=== PATIENT | female | born 1990 | race Caucasian/White ===

== ENCOUNTER 2020-03-26 17:33 | Emergency (ER) | payer OTHER, SELFPAY ==
[2020-03-26 17:40] VITALS: BP 138/72; PULSE 110; RESP 20; TEMP 36.5; O2SAT 99; BMI 30.9
== END 2020-03-26 21:00 | disposition left against medical advice (07) ==
PROVIDERS: Emergency Provider Student in an Organized Health Care Education/Training Program; PCP Hospitalist
DX: R13.10 Dysphagia, unspecified (principal)
CPT/HCPCS: 99281; 99282

== ENCOUNTER 2021-01-01 15:47 | Emergency (ER) | payer OTHER, SELFPAY | END 2021-01-01 21:19 | disposition left against medical advice (07) | PROVIDERS: Emergency Provider Emergency Medicine; PCP Hospitalist | DX: R10.30 Lower abdominal pain, unspecified (principal) ==

== ENCOUNTER 2022-11-14 11:06 | Emergency (ER) | payer OTHER, SELFPAY ==
[2022-11-14 11:16] VITALS: BP 135/73; PULSE 95; RESP 20; TEMP 37.2; O2SAT 98; BMI 32.3
--- NOTE | 2022-11-14 11:38 | ED_ITS ---
HPI - General Adult General Chief complaint: Ear Problems Stated complaint: l ear infection Time Seen by Provider: 11/14/22 11:16 Source: patient Mode of arrival: ambulatory Limitations: no limitations History of Present Illness HPI narrative: Patient is a 32-year-old female presenting to the emergency department from urgent care with complaint of left ear pain for the past week. Patient was seen at Urgent Care around 5 days ago and diagnosed with otitis externa, started on polymyxin drops and reports her symptoms have not improved and her pain is increased. She denies fevers. She denies difficulty opening and closing her jaw. complaint: left ear pain Onset (ago): day(s) Location: head Severity: severe Quality: aching Pain Consistency: constant Relieving factors: none Exacerbating factors: none Associated symptoms: denies other symptoms Treatments prior to arrival: NSAID and other (polymycin drops) Related Data Previous Rx's Medication Instructions Recorded ciprofloxacin 0.2 %-hydrocortisone 5 drp otic (ears) QID 7 days #10 mL 11/14/22 1 % ear drops,suspension Allergies Allergy/AdvReac Type Severity Reaction Status Date / Time No Known Allergies Allergy Unverified 12/14/19 16:24 Review of Systems 2 Review of Systems: As per HPI. Yes all other systems are reviewed and are negative Constitutional: Constitutional: Reports as per HPI [facility] Past Medical History Medical History (Updated 11/14/22 @ 12:08 by Pilar Ibanez NP) No known health problems Social History Social History Advance Directives: No Advance Directives Information Provided: No Physical Exam ED Vital Signs: Vital Signs - 24 hr 11/14/22 11:16 Temperature 98.9 F Pulse Rate 95 Respiratory Rate 20 Blood Pressure 135/73 Pulse Oximetry 98 Oxygen Delivery Method Room Air BMI result Body Mass Index 32.3 Vital signs have been reviewed and appear to be correct. Blood pressure normal. Heart rate normal. Respiratory rate normal. Temperature normal. Oxygen saturation normal. Const General: cooperative, healthy appearing and no acute distress Orientation/consciousness: oriented to person, oriented to place, oriented to time and patient oriented x3 Limitations: no limitations HENMT Head: Yes normocephalic and Yes atraumatic Ears: hearing grossly normal bilaterally, external ears normal, mastoids normal, no periauricular adenopathy, Abnormal EAC present cerumen impaction on the right, edema on the left, EAC tenderness on the left and otic discharge purulent on the left and unable to visualize TM bilaterally (R r/t cerumen, L r/t EAC edema and discharge) General nose exam: Normal external nose present Face and sinus: Yes face symmetric Mouth: oropharynx normal and moist mucous membranes Throat: Yes uvula midline Eyes Pupils: Equal, round and reactive pupils present Neck Neck: Yes normal visual inspection and Yes supple Resp Effort & Inspection: normal respiratory effort and able to speak in complete sentences Auscultation: clear to auscultation bilaterally Cardio Rate: regular rate Rhythm: regular rhythm Heart sounds: S1 normal heart sound present and S2 normal heart sound present GI Palpation (GI): Soft to palpation and nontender Auscultation: normoactive bowel sounds General: Yes no CVA tenderness Back/Spine/Pelvis Back: no CVA tenderness Skin General skin exam: elasticity normal and turgor normal Neuro General: oriented to person, oriented to place, oriented to time, patient oriented x3, moves all extremities, no focal motor deficits and CN's II-XI intact bilaterally Cranial nerves: Yes Equal, round and reactive pupils present Cognition (Neuro): normal cognition Extrem General: Yes full ROM, Yes no pedal edema and Yes no calf tenderness Psych Mental Status: mental status grossly normal Affect: normal affect Thought process: Normal thought process present Medical Decision Making Medical Decision Making MDM Narrative: Patient is a 32-year-old female presenting to the emergency department from urgent care with complaint of left ear pain for the past week. On exam patient is awake, A+Ox3, VS WNL, afebrile, normal neurological exam without focal deficits, right EAC impacted with cerumen, unable to visualize TM, left EAC edematous with purulent discharge, unable to visualize TM due to edema, no mastoid tenderness, no trismus. Given reported symptoms and physical exam findings, initial differential includes otitis externa, otitis media. Unlikely mastoiditis given lack of mastoid tenderness. Wick placed in left EAC. Spoke with pharmacist, no cipro or ofloxacin drops available in the hospital. Prescribed cipro-hydrocortisone drops for 7 days. Discussed with patient that wick should fall out on it's own as symptoms improve. Return precautions discussed bedside. Instructed patient to follow-up with PCP. Patient verbalized understanding of and agreement with plan. Differential Diagnosis Differential Diagnoses: The differential diagnosis associated with the presentation includes As per MDM. External Record Review External record reviewed: Inpatient record, Office record and Outpatient record Tests considered The following testing was considered but not selected: CT considered to rule out mastoiditis, however, patient did not have any mastoid tenderness so imaging deferred Prescription Management I considered prescription management with: Antibiotic Discharge Plan Discharge Clinical Impression: Otitis externa Patient Disposition: Home, Self-Care Instructions: Otitis Externa (DC) Additional Instructions: You were evaluated in the emergency department today for ear pain. Your evaluation suggests that your pain is due to an external ear infection called otitis externa. We placed a wick in your left ear canal today to help the drops treat your infection, this should fall out on it's own as your symptoms improve. Please STOP USING THE PREVIOUSLY PRESCRIBED DROPS AND BEGIN USING THE NEWLY PRESCRIBED EARDOPS as directed for the full course of the medication. Please follow up with your primary care provider within two days. Return to the emergency department if you experience hearing loss, increased discharge from your ear, headaches, fevers, wick does not fall out on it's own, recurrent vo miting, or any other concerning symptoms. Prescriptions: New ciprofloxacin-hydrocortisone 0.2-1 % drops,suspension 5 drp otic (ears) QID 7 Days Qty: 10 0RF
--- OUTSIDE RECORDS SUMMARY | 2022-11-14 11:41 | XMS_ITS | Continuity of Care Document ---
Author Name Unknown Organization [facility] Address [address] [place] [address]- Care Team Providers Care Health Information Internship Name Role Phone Ismael RAMIREZ, [facility] Primary Care Physician [place] [facility] [place](s): 09/26/19 - 10/26/19 [facility] [address] [place] [address]- [facility] Allergies, Adverse Reactions, Alerts Substance Reaction Severity Status NKA Active Immunizations Given and Recorded Vaccine Date Status Refusal Reason influenza virus vaccine, inactivated 12/09/18 Give n Medications Ashlyna oral tablet TK 1 T PO QD Start Date: 10/19/19 Status: Ordered Chantix Starter Pack 0.5 mg-1 mg oral tablet 1 tablet, By Mouth, 2 times a day, as directed on package labeling, # 1 kit, 0 Refills, Maintenance, 10/23/19 13:30:00 EDT, [facility] #[id number], 1 tablet By Mouth 2 times a day,Instr:as directed on package labeling, 160, cm, 10/23/19 12:18:00... Start Date: 10/23/19 Status: Ordered gabapentin 300 mg oral capsule 300 mg, 1, capsule, By Mouth, 4 times a day, 1 AM, 1 noon, 2 hs, # 90 capsule, Refills 0, Maintenance, 10/23/19 13:25:00 EDT Start Date: 10/23/19 Status: Ordered QUEtiapine 50 mg oral tablet 1 tablet = 50 mg, By Mouth, Daily, # 30 tablet, 1 Refills, Maintenance, 09/28/19 9:29:00 EDT, Tablet, [facility] #[id number], 160, cm, 03/13/19 9:14:00 EST, Height, 68, kg, 02/16/19 18:19:00 EST, Dry Weight Start Date: 09/28/19 Stop Date: 11/27/19 Status: Ordered Problem List Condition Effective Dates Status Health Status Inform ant Anxiety(Confirmed) Active IC (interstitial cystitis)(Confirmed) Active Chronic pelvic pain in female(Confirmed) Active Endometriosis(Confirmed) Active Insomnia(Confirmed) Active Tobacco use(Confirmed) Active Social History Social History Type Response Smoking Status 10 or more cigarette s (1/2 pack or more)/day in last 30 days; Other: From 13 years; entered on: 12/09/18 Sex
--- OUTSIDE RECORDS SUMMARY | 2022-11-14 11:41 | XMS_ITS | Continuity of Care Document ---
Author Name Unknown Organization [facility] Address [address] [place] [address]- Care Team Providers Care Java [id number] Lead Name Role Phone Ismael RAMIREZ, [facility] Primary Care Physician [place] [facility] [place] - 04/29/[address] [address] [facility] Attending Physician: Giovany Guevara MD Allergies, Adverse Reactions, Alerts Substance Reaction Severity Status NKA Active Immunizations Given and Recorded Vaccine Date Status Refusal Reason influenza virus vaccine, inactivated 12/09/18 Give n Medications desipramine 100 mg oral tablet 1 tablet = 100 mg, By Mouth, Daily, # 30 tablet, 0 Refills, Maintenance, 02/16/19 18:27:37 EST, Tablet Start Date: 02/16/19 Status: Ordered Lexapro 10 mg oral tablet 1 tablet = 10 mg, By Mouth, Daily, # 30 tablet, 2 Refills, Maintenance, 03/13/19 9:57:03 EST, Tablet, [facility] [address], 160, cm, 03/13/19 9:14:58 EST, Height, 68, kg, 02/16/19 18:19:44 EST, Dry Weight Start Date: 03/13/19 Status: Ordered QUEtiapine 50 mg oral tablet 1 tablet = 50 mg, By Mouth, Daily, # 30 tablet, 2 Refills, Maintenance, 04/28/19 9:37:00 EST, Tablet, [facility] [address], 160, cm, 03/13/19 9:14:00 EST, Height, 68, kg, 02/16/19 18:19:00 EST, Dry Weight Start Date: 04/28/19 Stop Date: 07/27/19 Status: Ordered Problem List Condition Effective Dates [...]
--- OUTSIDE RECORDS SUMMARY | 2022-11-14 11:41 | XMS_ITS | Continuity of Care Document ---
Author Name Unknown Organization [facility] Address [address] [place] [address]- Care Team Providers Care Gore Inserter Name Role Phone Juan NAVA, Karla Villar Primary Care Physician En[place] [facility] [place] Date(s): 08/11/21 - 11/22/21 [facility] [address] [place] [address]- Attending Physician: Not on Staff, Attending MD Referring Physician: Karla Martinez NP Allergies, Adverse Reactions, Alerts No Known Allergies Immunizations Given and Recorded Vaccine Date Status Refusal Reason SARS-CoV-2 (COVID-19) mRNA-1273 vaccine 03/13/21 R ecorded SARS-CoV-2 (COVID-19) mRNA-1273 vaccine 07/11/20 R ecorded SARS-CoV-2 (COVID-19) mRNA-1273 vaccine 06/13/20 R ecorded influenza virus vaccine, inactivated 01/12/20 Give n influenza virus vaccine, inactivated 12/09/18 Give n influenza virus vaccine, inactivated 01/04/14 Jesus rded influenza virus vaccine, inactivated 11/30/12 Jesus rded tetanus/diphtheria/pertussis, acel(Tdap) 06/20/15 Recorded Medications Ashlyna oral tablet TK 1 T PO QD Start Date: 10/19/19 Status: Ordered chantix 1mg tablet 1 tablet = 1 mg, By Mouth, 2 times a day, beginning WEEK 5 until end of treatment, # 60 tablet, 1 Refills, Maintenance, 09/10/20 12:27:00 EDT, [facility] #[id number], Partial fill upon patient request if the prescription is for a schedule II opio... Start Date: 09/10/20 Status: Ordered Chantix Starter Pack 0.5 mg-1 mg oral tablet See Instructions, as directed on package labelling, # 1 pack/packet, 0 Refills, Maintenance, 09/10/20 12:27:00 EDT, [facility] #[id number], Partial fill upon patient request if the prescription is for a schedule II opioid drug., as directed on pa... Start Date: 09/10/20 Status: Ordered ProAir HFA 90 mcg/inh inhalation aerosol 2 puffs, Inhalation, Every 4 hours, PRN NEEDED FOR WHEEZING, # 18 Gm, 5 Refills, [facility] #[id number], 16, INHALE 2 PUFFS BY MOUTH EVERY 4 HOURS NEEDED FOR WHEEZING, 160, cm, 09/10/20 12:00:00 EDT, Height Start Date: 04/06/21 Status: Ordered QUEtiapine 50 mg oral tablet 1 tablet, By Mouth, Daily at bedtime, # 90 tablet, 3 Refills, [facility] #[id number], 160, cm,09/10/20 12:00:00 EDT, Height Start Date: 03/26/21 Status: Ordered QUEtiapine 50 mg oral tablet See Instructions, TAKE 1 TABLET BY MOUTH DAILY, # 30 tablet, 0 Refills, [facility] #[id number], 160, cm, 09/10/20 12:00:00 EDT, Height Start Date: 10/24/21 Status: Ordered Problem List Condition Effective Dates Status Health Status Inform ant Anxiety(Confirmed) Active Persistent asthma without complication(Confirmed) Active IC (interstitial cystitis)(Confirmed) Active Chronic pelvic pain in female(Confirmed) Active Daytime somnolence(Confirmed) Active Endometriosis(Confirmed) Active Chronic fatigue(Confirmed) Active Insomnia(Confirmed) Active Mood disorder(Confirmed) Active Generalized muscle ache(Confirmed) Active Acne rosacea(Confirmed) Active Stridor(Confirmed) Active Tobacco use(Confirmed) Active Social History Social History Type Response Smoking Status 10 or more cigarette s (1/2 pack or more)/day in last 30 days; Other: From 13 years; entered on: 12/09/18 Sex Care Team Personnel Name: Karla Martinez NP Address: [address] [place] [id number]
--- OUTSIDE RECORDS SUMMARY | 2022-11-14 11:41 | XMS_ITS | Continuity of Care Document ---
Author Name Unknown Organization [facility] Address [address] [place] [address]- Care Team Providers Care Domestic Freight Forwarder Name Role Phone Juan NAVA, Karla Villar Primary Care Physician En[facility] [place] Date(s): 04/29/21 - 07/02/21 [facility] [address] [place] [address]- Attending Physician: Karla Martinez NP Referring Physician: Miek Vigil MD Allergies, Adverse Reactions, Alerts No Known Allergies [...] tablet, 1 Refills, Maintenance, 09/10/20 12:27:00 EDT, [facility] #[id number], Partial fill upon patient request if the prescription is for a schedule II opio... Start Date: 09/10/20 Status: Ordered Chantix Starter Pack 0.5 mg-1 mg oral tablet See Instructions, as directed on package labelling, # 1 pack/packet, 0 Refills, Maintenance, 09/10/20 12:27:00 EDT, [facility] #[id number], Partial fill upon patient request if the prescription is for a schedule II opioid drug., as directed on pa... Start Date: 09/10/20 Status: Ordered ProAir HFA 90 mcg/inh inhalation aerosol 2 puffs, Inhalation, Every 4 hours, PRN NEEDED FOR WHEEZING, # 18 Gm, 5 Refills, [facility] #[id number], 16, INHALE 2 PUFFS BY MOUTH EVERY 4 HOURS NEEDED FOR WHEEZING, 160, cm, 09/10/20 12:00:00 EDT, Height Start Date: 04/06/21 Status: Ordered QUEtiapine 50 mg oral tablet 1 tablet, By Mouth, Daily at bedtime, # 90 tablet, 3 Refills, [facility] #[id number], 160, cm,09/10/20 12:00:00 EDT, Height Start Date: 03/26/21 Status: Ordered Problem List Condition Effective Dates [...]
--- OUTSIDE RECORDS SUMMARY | 2022-11-14 11:41 | XMS_ITS | Continuity of Care Document ---
Author Name Unknown Organization [facility] Address [address] [place] [address]- Care Team Providers Care Data Reduction Technician Name Role Phone Leighton Nguyen MD Primary Care Physician Encounter [facility] [place] Date(s): 02/19/20 - 03/20/[address] [address] Attending Physician: Nelda Rodriguez Admitting Physician: Admtr, [id number] Referring Physician: Admtr, Ar8 Allergies, Adverse Reactions, Alerts Substance Reaction Severity Status NKA Active Immunizations Given and Recorded Vaccine Date Status Refusal Reason influenza virus vaccine, inactivated 01/12/20 Give n influenza virus vaccine, inactivated 12/09/18 Give n Medications albuterol CFC free 90 mcg/inh inhalation aerosol 2, puffs, Inhalation, Every 4 hours, PRN, # 18 Gm, Refills 3, Tot. Refills 3, Maintenance, 02/15/2010:20:00 EST, Aerosol, Route to Pharmacy Electronically, [id number]_[id number], [facility] #[id number], 160, cm, 02/16/20 9:16:00 EST, Height, 68, kg,... Start Date: 02/16/20 Status: Ordered Ashlyna oral tablet TK 1 T PO QD Start Date: 10/19/19 Status: Ordered fluticasone 250 mcg/inh inhalation powder 1 puffs, Inhalation, 2 times a day, # 60 each, 11 Refills, Maintenance, 02/16/20 10:19:00 EST, Powder, [facility] #[id number], Partial fill upon patient request, 160, cm, 02/16/20 9:16:00 EST, Height, 68, kg, 02/16/19 18:19:00 EST, Dry Weight Start Date: 02/16/20 Status: Ordered gabapentin 300 mg oral capsule 300 mg, 1, capsule, By Mouth, 4 times a day, 1 AM, 1 noon, 2 hs, # 90 capsule, Refills 0, Maintenance, 10/23/19 13:25:00 EDT Start Date: 10/23/19 Status: Ordered QUEtiapine 50 mg oral tablet 1 tablet = 50 mg, By Mouth, Daily, # 30 tablet, 2 Refills, Maintenance, 02/02/20 8:33:00 EST, Tablet, [facility] #[id number], 160, cm, 01/12/20 12:55:00 EDT, Height, 68, kg, 02/16/19 18:19:00 EST, Dry Weight Start Date: 02/02/20 Stop Date: 05/02/20 Status: Ordered Problem List Condition Effective Dates [...]
--- OUTSIDE RECORDS SUMMARY | 2022-11-14 11:41 | XMS_ITS | Continuity of Care Document ---
Author Name Unknown Organization [facility] Address [address] [place] [address]- Care Team Providers Care Paint Process Engineer Name Role Phone Juan NAVA, Karla Villar Primary Care Physician [place] [facility] [place] 12/08/21 - 12/15/21 [facility] Adult [address] [place] [address]- Encounter Diagnosis Anxiety(Discharge Diagnosis) - 12/08/21 Insomnia(Discharge Diagnosis) - 12/08/21 Persistent asthma without complication(Discharge Diagnosis) - 12/08/21 Chronic pelvic pain in female(Discharge Diagnosis) - 12/08/21 Tobacco use(Discharge Diagnosis) - 12/08/21 Mood disorder(Discharge Diagnosis) - 12/08/21 Attending Physician: Not on Staff, Attending MD [...] PO QD Start Date: 10/19/19 Status: Ordered baclofen 10 mg oral tablet 10 mg, 1, tablet, By Mouth, 2 times a day, Refills 0, Maintenance, 12/08/21 8:32:00 EDT, Partial fill upon patient request if the prescription is for a schedule II opioid drug. Start Date: 12/08/21 Status: Ordered chantix 1mg tablet See Instructions, Day 1-3 1/2 tab daily Day 4-7 1/2 tab twice daily day 7 and on: 1 tab twice dailyfor 11 weeks with a full glass of water, # 168 tablet, 0 Refills, Acute 03/02/22 8:57:00 EST, 12/08/21 8:55:00 EDT, [facility] #[id number], Pa... Start Date: 12/08/21 Stop Date: 03/02/22 Status: Ordered Flovent HFA 110 mcg/inh inhalation aerosol 2 puffs, Inhalation, 2 times a day, # 12 Gm, 3 Refills, Maintenance, 12/08/21 8:29:00 EDT, Aerosol,[facility] #[id number], Partial fill upon patient request if the prescription is for a schedule II opioid drug., 160, cm, 12/08/21 8:11:00 EDT, He... Start Date: 12/08/21 Status: Ordered ProAir HFA 90 mcg/inh inhalation aerosol 2 puffs, Inhalation, Every 4 hours, PRN NEEDED FOR WHEEZING, # 18 Gm, 5 Refills, [facility] #[id number], 16, INHALE 2 PUFFS BY MOUTH EVERY 4 HOURS NEEDED FOR WHEEZING, 160, cm, 09/10/20 12:00:00 EDT, Height Start Date: 04/06/21 Status: Ordered QUEtiapine 50 mg oral tablet 1 tablet = 50 mg, By Mouth, Daily, for 30 days, # 30 tablet, 6 Refills, Physician Stop 07/06/22 8:35:00 EDT, 12/08/21 8:35:00 EDT, [facility] #[id number], 160, cm, 12/08/21 8:11:00 EDT, Height Start Date: 12/08/21 Stop Date: 07/06/22 Status: Ordered Valium 10 mg oral tablet 10 mg, 1, tablet, By Mouth, 2 times a day, inserted vaginally for vaginal wall spasm, Refills 0, Maintenance, 12/08/21 8:33:00 EDT, Partial fill upon patient request if the prescription is for a schedule II opioid drug. Start Date: 12/08/21 Status: Ordered Problem List Condition Effective Dates Status Health Status Inform ant Anxiety(Confirmed) Active Persistent asthma without complication(Confirmed) Active IC (interstitial cystitis)(Confirmed) Active Chronic pelvic pain in female(Confirmed) Active Daytime somnolence(Confirmed) Active Endometriosis(Confirmed) Active Chronic fatigue(Confirmed) Active Insomnia(Confirmed) Active Mood disorder(Confirmed) Active Generalized muscle ache(Confirmed) Active Obese class I(Confirmed) Active Acne rosacea(Confirmed) Active Tobacco use(Confirmed) Active Diagnosis Diagnosis Type Effective Dates Health Status Clinical Service Informant Anxiety Discharge Diagnosis 12/08/21 Insomnia Discharge Diagnosis 12/08/21 Persistent asthma without complication Discharge Diagnosis 12/08/21 Chronic pelvic pain in female Discharge Diagnosis 12/08/21 Tobacco use Discharge Diagnosis 12/08/21 Mood disorder Discharge Diagnosis 12/08/21 Procedures Procedure Date Related Diagnosis Body Site Status Hysterectomy Completed Vital Signs Most recent to oldest [Reference Range]: 1 Height 160 cm (12/08/21 8:11 AM) Weight 80.8 kg (12/08/21 8:11 AM) Oxygen Saturation [94-100 %] 98 % (12/08/21 8:11 AM) Body Mass Index [18.5-24.99] 31.56 *>HHI* (12/08/21 8:11 AM) Blood Pressure [90-138/55-84 mm Hg] 114/ 61mm Hg (12/08/21 8:11 AM) Blood pressure sites Arm, left (12/08/21 8:11 AM) Weight Obtained Via Standing scale (12/08/21 8:11 AM) Social History Social History Type Response Smoking Status 10 or more cigarette s (1/2 pack or more)/day in last 30 days; Other: From 13 years; entered on: 12/09/18 Sex Care Team Personnel Name: Karla Martinez NP Address: [address] [facility] [place], [place] [address]
--- OUTSIDE RECORDS SUMMARY | 2022-11-14 11:41 | XMS_ITS | Continuity of Care Document ---
Author Name Unknown Organization [facility] Address [address] [place] [address]- Care Team Providers Care Dry Cleaner Helper Name Role Phone Ismael RAMIREZ, [facility] Primary Care Physician Encounter [facility] [place] Date(s): 10/05/19 - 11/04/19 [facility] [address] [place] [address]- [facility] Attending Physician: Admsalima, [id number] Admitting Physician: AdmtrNelda Referring Physician: Admtr, Ar8 Allergies, Adverse Reactions, [...] kit, 0 Refills, Maintenance, 10/23/19 13:30:00 EDT, [facility] #[id number], 1 tablet By Mouth 2 times a [...] 1 Refills, Maintenance, 09/28/19 9:29:00 EDT, Tablet, [facility] #[id number], 160, cm, 03/13/19 9:14:00 EST, Height, 68, [...]
--- OUTSIDE RECORDS SUMMARY | 2022-11-14 11:41 | XMS_ITS | Continuity of Care Document ---
Author Name Unknown Organization [facility] Address [address] [place] [address]- Care Team Providers Care Director Oracle Database Name Role Phone Leighton Nguyen MD Primary Care Physician [phone] Encounter [facility] [place] Date(s): 01/12/20 - 01/19/20 [facility] [address] [place] [address]- [facility] Encounter Diagnosis Stridor(Discharge Diagnosis) - 01/12/20 Mood disorder(Discharge Diagnosis) - 01/12/20 Endometriosis(Discharge Diagnosis) - 01/12/20 Chronic pelvic pain in female(Discharge Diagnosis) - 01/12/20 Daytime somnolence(Discharge Diagnosis) - 01/12/20 Acne rosacea(Discharge Diagnosis) - 01/12/20 Cigarette smoker(Discharge Diagnosis) - 01/12/20 Medical marijuana use(Discharge Diagnosis) - 01/12/20 Attending Physician: Leighton Nguyen MD Allergies, Adverse Reactions, Alerts Substance Reaction Severity Status NKA Active Immunizations Given and Recorded Vaccine Date Status Refusal Reason influenza virus vaccine, inactivated 01/12/20 Give n influenza virus vaccine, inactivated 12/09/18 Give n Medications Ashlyna oral tablet TK 1 T PO QD Start Date: 10/19/19 Status: Ordered clindamycin 1% topical gel 1 application, Topically, 2 times a day, # 30 Gm, 5 Refills, Maintenance, 01/12/20 13:33:00 EDT, Gel, [facility] #[id number], 1 application Topically 2 times a day, 160, cm, 01/12/20 12:55:00 EDT, Height, 68, kg, 02/16/19 18:19:00 EST, Dry Weight Start Date: 01/12/20 Status: Ordered gabapentin 300 mg oral capsule 300 mg, 1, capsule, By Mouth, 4 times a day, 1 AM, 1 noon, 2 hs, # 90 capsule, Refills 0, Maintenance, 10/23/19 13:25:00 EDT Start Date: 10/23/19 Status: Ordered QUEtiapine 50 mg oral tablet 1 tablet = 50 mg, By Mouth, Daily, # 30 tablet, 1 Refills, Maintenance, 11/28/19 8:45:00 EDT, Tablet, [facility] #[id number], 160, cm, 10/23/19 12:18:00 EDT, Height, 68, kg, 02/16/19 18:19:00 EST, Dry Weight Start Date: 11/28/19 Stop Date: 01/27/20 Status: Ordered Problem List Condition Effective Dates Status Health Status Inform ant Anxiety(Confirmed) Active IC (interstitial cystitis)(Confirmed) Active Chronic pelvic pain in female(Confirmed) Active Daytime somnolence(Confirmed) Active Endometriosis(Confirmed) Active Chronic fatigue(Confirmed) Active Insomnia(Confirmed) Active Mood disorder(Confirmed) Active Generalized muscle ache(Confirmed) Active Acne rosacea(Confirmed) Active Stridor(Confirmed) Active Tobacco use(Confirmed) Active Diagnosis Diagnosis Type Effective Dates Health Status Clinical Service Informant Stridor Discharge Diagnosis 01/12/20 Mood disorder Discharge Diagnosis 01/12/20 Endometriosis Discharge Diagnosis 01/12/20 Chronic pelvic pain in female Discharge Diagnosis 01/12/20 Daytime somnolence Discharge Diagnosis 01/12/20 Acne rosacea Discharge Diagnosis 01/12/20 Cigarette smoker Discharge Diagnosis 01/12/20 Vital Signs Most recent to oldest [Reference Range]: 1 Height 160 cm (01/12/20 12:55 PM) Weight 84.7 kg (01/12/20 12:55 PM) Oxygen Saturation [94-100 %] 97 % (01/12/20 12:55 PM) Pulse Rate [55-90 bpm] 92 bpm *H* (01/12/20 12:55 PM) Body Mass Index [18.5-24.99] 33.09 *>HHI* (01/12/20 12:55 PM) Blood Pressure [90-138/55-84 mm Hg] 108/ 68mm Hg (01/12/20 12:55 PM) Temperature [96.8-100.4 DegF] 98.6 DegF (01/12/20 12:55 PM) Blood pressure sites Arm, left (01/12/20 12:55 PM) Temperature Route Oral (01/12/20 12:55 PM) Social History Social History Type Response Smoking Status 10 or more cigarette s (1/2 pack or more)/day in last 30 days; Other: From 13 years; entered on: 12/09/18 Sex
--- OUTSIDE RECORDS SUMMARY | 2022-11-14 11:41 | XMS_ITS | Continuity of Care Document ---
Author Name Unknown Organization [facility] [place] Address [address] [place] [address]- Care Team Providers Care Fibreglass Gun Hand Name Role Phone Wendy RAMIREZ, Leighton Garcia Primary Care Physician Encounter [facility] Date(s): 01/20/21 - 02/19/21 [facility] [place] [address] [place] [address]- Allergies, Adverse Reactions, Alerts Substance Reaction Severity Status NKA Active Immunizations Given and Recorded Vaccine Date Status Refusal Reason SARS-CoV-2 (COVID-19) mRNA-1273 vaccine 07/11/20 R ecorded SARS-CoV-2 (COVID-19) mRNA-1273 vaccine 06/13/20 R ecorded influenza virus vaccine, inactivated 01/12/20 Give n influenza virus vaccine, inactivated 12/09/18 Give n influenza virus vaccine, inactivated 01/04/14 Jesus rded influenza virus vaccine, inactivated 11/30/12 Jesus rded tetanus/diphtheria/pertussis, acel(Tdap) 06/20/15 Recorded Medications albuterol CFC free 90 mcg/inh inhalation aerosol 2, puffs, Inhalation, Every 4 hours, PRN, # 18 Gm, Refills 3, Tot. Refills 3, Maintenance, 02/15/2010:20:00 EST, Aerosol, Route to Pharmacy Electronically, NCPDP_[id number], [id number], 160, cm, 02/16/20 9:16:00 EST, Height, 68, kg,... Start Date: 02/16/20 Status: Ordered Ashlyna oral tablet TK 1 T PO QD Start Date: 10/19/19 Status: Ordered chantix 1mg tablet 1 tablet = 1 mg, By Mouth, 2 times a day, beginning WEEK 5 until end of treatment, # 60 tablet, 1 Refills, Maintenance, 09/10/20 12:27:00 EDT, [facility] #[id number], Partial fill upon patient request if the prescription is for a schedule II opio... Start Date: 09/10/20 Status: Ordered Chantix Starter Pack 0.5 mg-1 mg oral tablet See Instructions, as directed on package labelling, # 1 pack/packet, 0 Refills, Maintenance, 09/10/20 12:27:00 EDT, [facility] #[id number], Partial fill upon patient request if the prescription is for a schedule II opioid drug., as directed on pa... Start Date: 09/10/20 Status: Ordered QUEtiapine 50 mg oral tablet 1 tablet, By Mouth, Daily at bedtime, PER DR REYNOLDS, # 90 tablet, 0 Refills, Maintenance, 01/20/21 12:53:00 EDT, [facility] #[id number], 160, cm, 09/10/20 12:00:00 EDT, Height, 68, kg, 02/16/19 18:19:00 EST, Dry Weight Start Date: 01/20/21 Status: Ordered Problem List Condition Effective Dates [...]
--- OUTSIDE RECORDS SUMMARY | 2022-11-14 11:41 | XMS_ITS | Continuity of Care Document ---
Author Name Unknown Organization [facility] Address [address] [place] [address]- Care Team Providers Care Meat Products Demonstrator Name Role Phone Juan NAVA, Karla Villar Primary Care Physician [place] [facility] [place](s): 10/23/21 - 11/22/21 [facility] Adult [address] [place] [address]- Allergies, Adverse Reactions, Alerts No Known Allergies [...] tablet, 1 Refills, Maintenance, 09/10/20 12:27:00 EDT, [facility] #[id number], Partial fill upon patient request if the prescription is for a schedule II opio... Start Date: 09/10/20 Status: Ordered Chantix Starter Pack 0.5 mg-1 mg oral tablet See Instructions, as directed on package labelling, # 1 pack/packet, 0 Refills, Maintenance, 09/10/20 12:27:00 EDT, [facility] #[id number], Partial fill upon patient request if the prescription is for a schedule II opioid drug., as directed on pa... Start Date: 09/10/20 Status: Ordered ProAir HFA 90 mcg/inh inhalation aerosol 2 puffs, Inhalation, Every 4 hours, PRN NEEDED FOR WHEEZING, # 18 Gm, 5 Refills, [facility] #[id number], 16, INHALE 2 PUFFS BY MOUTH EVERY 4 HOURS NEEDED FOR WHEEZING, 160, cm, 09/10/20 12:00:00 EDT, Height Start Date: 04/06/21 Status: Ordered QUEtiapine 50 mg oral tablet 1 tablet, By Mouth, Daily at bedtime, # 90 tablet, 3 Refills, [facility] #[id number], 160, cm,09/10/20 12:00:00 EDT, Height Start Date: 03/26/21 Status: Ordered QUEtiapine 50 mg oral tablet See Instructions, TAKE 1 TABLET BY MOUTH DAILY, # 30 tablet, 0 Refills, [facility] #[id number], 160, cm, 09/10/20 12:00:00 EDT, Height Start [...] Team Personnel Name: Karla Martinez NP Address: [address] [place] [id number]
--- OUTSIDE RECORDS SUMMARY | 2022-11-14 11:41 | XMS_ITS | Continuity of Care Document ---
Author Name Unknown Organization [facility] Address [address] [place] [address]- Care Team Providers Care Director Erp Name Role Phone Ismael RAMIREZ, [facility] Primary Care Physician ( [phone] En[place] [facility] [place] Date(s): 10/23/19 - 10/30/19 [facility] [address] [place] [address]- [facility] Encounter Diagnosis Tobacco use disorder(Discharge Diagnosis) - 10/23/19 Attending Physician: Isiah Aponte MD Allergies, Adverse Reactions, Alerts Substance Reaction [...] kit, 0 Refills, Maintenance, 10/23/19 13:30:00 EDT, [facility] #[id number], 1 tablet By Mouth 2 times a [...] 1 Refills, Maintenance, 09/28/19 9:29:00 EDT, Tablet, [facility] #[id number], 160, cm, 03/13/19 9:14:00 EST, Height, 68, kg, 02/16/19 18:19:00 EST, Dry Weight Start Date: 09/28/19 Stop Date: 11/27/19 Status: Ordered Problem List Condition Effective Dates Status Health Status Inform ant Anxiety(Confirmed) Active IC (interstitial cystitis)(Confirmed) Active Chronic pelvic pain in female(Confirmed) Active Endometriosis(Confirmed) Active Insomnia(Confirmed) Active Tobacco use(Confirmed) Active Diagnosis Diagnosis Type Effective Dates Health Status Cl inical Service Informant Tobacco use disorder Discharge Diagnosis 10/23/19 Vital Signs Most recent to oldest [Reference Range]: 1 Height 160 cm (10/23/19 12:18 PM) Weight Obtained Via Standing scale (10/23/19 12:18 PM) Social History Social History Type Response Smoking Status 10 or more cigarette s (1/2 pack or more)/day in last 30 days; Other: From 13 years; entered on: 12/09/18 Sex
--- OUTSIDE RECORDS SUMMARY | 2022-11-14 11:41 | XMS_ITS | Continuity of Care Document ---
Author Name Unknown Organization [facility] Address [address] [place] [address]- Care Team Providers Care Stationary Boiler Fireman Name Role Phone Juan NAVA, Karla Villar Primary Care Physician [place] [facility] [place]13[place]22 - 09/12/22 [facility] [address] [place] [address] Allergies, Adverse Reactions, Alerts No Known Allergies [...] mcg/inh inhalation aerosol 2, puffs, Inhalation, Every 6 hours, # 1 each, Refills 4, Tot. Refills 4, Maintenance, 07/08/22 10:02:00 EDT, Route to Pharmacy Electronically, NCPDP_ID- [id number], [facility] #[id number], 160, cm,01/14/22 8:04:00 EDT, Height Start Date: 07/08/22 Stop Date: 12/05/22 Status: Ordered baclofen 20 mg oral tablet 20 mg, 1, tablet, By Mouth, 3 times a day, Refills 0, Maintenance, 11/07/22 14:23:00 EST, Partial fill upon patient request if the prescription is for a schedule II opioid drug. Start Date: 02/02/22 Status: Ordered Latuda 60 mg oral tablet 1 tablet = 60 mg, By Mouth, Daily, # 30 tablet, 1 Refills, Maintenance, 07/15/22 16:14:00 EDT, Tablet, [facility] #[id number], Partial fill upon patient request if the prescription is for a schedule II opioid drug., 160, cm, 01/14/22 8:04:00 EDT,... Start Date: 07/15/22 Status: Ordered olanzapine 5 mg oral tablet 5 mg, 1, tablet, By Mouth, Daily, PRN, # 90 tablet, Refills 2, Tot. Refills 2, Maintenance, Agitation, 04/17/22 12:35:00 EST, Route to Pharmacy Electronically, [facility] #[id number], Partial fill upon patient request if the prescription is for a... Start Date: 04/17/22 Status: Ordered QUEtiapine 25 mg oral tablet 25 mg, 1, tablet, By Mouth, Daily at bedtime, # 30 tablet, Refills 3, Tot. Refills 3, Maintenance, 06/30/22 17:06:00 EDT, Route to Pharmacy Electronically, [facility] #[id number], Partial fill upon patient request if the prescription is for a jayson... Start Date: 06/30/22 Status: Ordered Valium 10 mg oral tablet See Instructions, PRN, 1 tablet By Mouth 2 times a day PRN inserted vaginally for vaginal wall spasm., Refills 0, Maintenance, Spasm, 12/08/21 8:33:00 EDT, Instructions Replace Required Details, Partial fill upon patient request if the prescription is... Start Date: 12/08/21 Status: Ordered Vyvanse 30 mg oral capsule 1 capsule = 30 mg, By Mouth, Daily in AM, # 30 capsule, 0 Refills, Maintenance, 08/11/22 10:19:00 EDT, Capsule, [facility] #[id number], Partial fill upon patient request if the prescription is for a schedule II opioid drug., 1 capsule By Mouth Da... Start Date: 5/16/23 Status: Ordered Problem List Condition Confirmation Course Effective Dates Status H ealth Status Informant Anxiety Confirmed Active Persistent asthma without complication Confirmed Active Asthma Confirmed Active Bipolar disorder, current episode depressed, moderate Confirmed Active Black stool Confirmed Active IC (interstitial cystitis) Confirmed Active Chronic pelvic pain in female Confirmed Active Daytime somnolence Confirmed Active Endometriosis Confirmed Active Chronic fatigue Confirmed Active Generalized anxiety disorder Confirmed Active Insomnia Confirmed Active Mood disorder Confirmed Active Generalized muscle ache Confirmed Active Obese class I Confirmed Active Acne rosacea Confirmed Active Nicotine dependence, cigarettes, in remission Confirmed Active Tobacco use Confirmed Active Social History Social History Type Response Smoking Status Former smoker, quit more than 30 days ago; Interested in cessation: No; Patient wants NRT during admission Yes; Type: Cigarettes; Exposure to Secondhand Smoke: No; Previous treatment: Nicotine replacement; Tobacco user in household: No; Other: Date of last cigarette 02/03/2022.; Started at age: 13; Stopped at age: 31; Cessation attempts: 1; entered on: 06/08/22 Sex Patient Care team information Care Team Personnel Name: Karla Martinez NP Position: [facility] PCO Associate Professional Member Role: PCP Address: Address: [address] [place] [address] Name: Tawny Nicole [place] Position: [facility] RN Member Role: Primary Care Nurse Care Team Related Persons Name: ERNESTO MAHMOOD Address: [address] [address] Name: HUGO VAZQUEZ Address: [address] [address] Name: THIAGO VAZQUEZ Address: [address] [address]
--- OUTSIDE RECORDS SUMMARY | 2022-11-14 11:41 | XMS_ITS | Continuity of Care Document ---
Author Name Unknown Organization [facility] Address [address] [place] [address]- Care Team Providers Care Director Digital Catalogue Name Role Phone Ismael RAMIREZ, [facility] Primary Care Physician Encounter [facility] [place] Date(s): 10/04/19 - 11/03/19 [facility] [address] [place] [address]- [facility] Allergies, Adverse Reactions, Alerts Substance Reaction Severity [...] kit, 0 Refills, Maintenance, 10/23/19 13:30:00 EDT, [facility] #[id number], 1 tablet By Mouth 2 times a [...] 1 Refills, Maintenance, 09/28/19 9:29:00 EDT, Tablet, [facility] #[id number], 160, cm, 03/13/19 9:14:00 EST, Height, 68, [...]
--- OUTSIDE RECORDS SUMMARY | 2022-11-14 11:41 | XMS_ITS | Continuity of Care Document ---
Author Name Unknown Organization [facility] Address [address] [place] [address]- Care Team Providers Care Central Supply Nurse Name Role Phone Ismael RAMIREZ, Giovany Primary Care Physician ( [phone] Encounter [facility] [place] Date(s): 01/31/19 - 03/16/[address] [address]- [facility] Discharge Disposition: A-D/C Home Attending Physician: Jw Perla MD Admitting Physician: Jw Perla MD Referring Physician: Jw Perla MD Allergies, Adverse Reactions, Alerts Substance Reaction [...] Daily, # 30 tablet, 1 Refills, Maintenance, 03/03/19 11:03:31 EST, Tablet, 160, cm, 02/16/19 18:19:44 EST, Height, 68, kg, 02/16/19 18:19:44 EST, Dry Weight Start Date: 03/03/19 Stop Date: 05/02/19 Status: Ordered Problem List Condition Effective Dates [...]
--- OUTSIDE RECORDS SUMMARY | 2022-11-14 11:41 | XMS_ITS | Continuity of Care Document ---
Author Name Unknown Organization [facility] Address [address] [place] [address]- Care Team Providers Care Web Press Operator Apprentice Name Role Phone Juan NAVA, Karla Villar Primary Care Physician Encounter [facility] [place] Date(s): 05/19/21 - 06/18/[address] [address] Attending Physician: Nelda Rodriguez Admitting Physician: AdmNelda borrego Referring Physician: AdmtrNelda Allergies, Adverse Reactions, Alerts No Known Allergies [...] tablet, 1 Refills, Maintenance, 09/10/20 12:27:00 EDT, [facility] #[id number], Partial fill upon patient request if the prescription is for a schedule II opio... Start Date: 09/10/20 Status: Ordered Chantix Starter Pack 0.5 mg-1 mg oral tablet See Instructions, as directed on package labelling, # 1 pack/packet, 0 Refills, Maintenance, 09/10/20 12:27:00 EDT, [facility] #[id number], Partial fill upon patient request if the prescription is for a schedule II opioid drug., as directed on pa... Start Date: 09/10/20 Status: Ordered ProAir HFA 90 mcg/inh inhalation aerosol 2 puffs, Inhalation, Every 4 hours, PRN NEEDED FOR WHEEZING, # 18 Gm, 5 Refills, [facility] #[id number], 16, INHALE 2 PUFFS BY MOUTH EVERY 4 HOURS NEEDED FOR WHEEZING, 160, cm, 09/10/20 12:00:00 EDT, Height Start Date: 04/06/21 Status: Ordered QUEtiapine 50 mg oral tablet 1 tablet, By Mouth, Daily at bedtime, # 90 tablet, 3 Refills, [facility] #[id number], 160, cm,09/10/20 12:00:00 EDT, Height Start Date: [...]
--- OUTSIDE RECORDS SUMMARY | 2022-11-14 11:41 | XMS_ITS | Continuity of Care Document ---
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 Start Date: 11/20/20 Status: Ordered Ashlyna oral tablet TK 1 T PO QD Start Date: 10/19/19 Status: Ordered chantix 1mg tablet 1 tablet = 1 mg, By Mouth, 2 times a day, beginning WEEK 5 until end of treatment, # 60 tablet, 1 Refills, Maintenance, 09/10/20 12:27:00 EDT, [facility] #[id number], Partial fill upon patient request if the prescription is for a schedule II opio... Start Date: 09/10/20 Status: Ordered Chantix Starter Pack 0.5 mg-1 mg oral tablet See Instructions, as directed on package labelling, # 1 pack/packet, 0 Refills, Maintenance, 09/10/20 12:27:00 EDT, [facility] #[id number], Partial fill upon patient request if the prescription is for a schedule II opioid drug., as directed on pa... Start Date: 09/10/20 Status: Ordered QUEtiapine 50 mg oral tablet 1 tablet = 50 mg, By Mouth, Daily, # 30 tablet, 2 Refills, Maintenance, 07/31/20 8:33:00 EDT, Tablet, [facility] #[id number], 160, cm, 02/16/20 9:16:00 EST, Height, 68, kg, 02/16/19 18:19:00 EST, Dry Weight Start Date: 07/31/20 Stop Date: 10/29/20 Status: Ordered Problem List Condition Effective Dates [...] Effective Dates Health Status Clinical Service Informant Tobacco use Discharge Diagnosis 09/10/20 Moderate somatic symptom disorder with predominant pain Discharge Diagnosis 09/10/20 Vital Signs Most recent to oldest [Reference Range]: 1 Height 160 cm (09/10/20 12:00 PM) Weight 85.9 kg (09/10/20 12:00 PM) Oxygen Saturation [94-100 %] 97 % (09/10/20 12:00 PM) Pulse Rate [55-90 bpm] 94 bpm *H* (09/10/20 12:00 PM) Body Mass Index [18.5-24.99] 33.55 *>HHI* (09/10/20 12:00 PM) Blood Pressure [90-138/55-84 mm Hg] 102/ 64mm Hg (09/10/20 12:00 PM) Temperature [96.8-100.4 DegF] 98.0 DegF (09/10/20 12:00 PM) Mode of Delivery (Oxygen) Room air (09/10/20 12:00 PM) Blood pressure sites Arm, left (09/10/20 12:00 PM) Temperature Route Oral (09/10/20 12:00 PM) Weight Obtained Via Standing scale (09/10/20 12:00 PM) Social History Social History Type Response Smoking Status 10 or more cigarette s (1/2 pack or more)/day in last 30 days; Other: From 13 years; entered on: 12/09/18 Sex
--- OUTSIDE RECORDS SUMMARY | 2022-11-14 11:41 | XMS_ITS | Continuity of Care Document ---
Author Name Unknown Organization [facility] Address [address] [place] [address]- Care Team Providers Care Customs Compliance Analyst Name Role Phone Leighton Nguyen MD Primary Care Physician [phone] Encounter [facility] [place] [id number] Date(s): 02/26/20 - 03/27/[address] [address] Attending Physician: Admtr, Milton8 Admitting Physician: Admtr, Ar8 Referring Physician: Admtr, Ar8 Allergies, Adverse Reactions, [...] 02/15/2010:20:00 EST, Aerosol, Route to Pharmacy Electronically, NCPDP_[id number], [facility] #[id number], 160, cm, 02/16/20 9:16:00 EST, Height, 68, kg,... Start Date: 02/16/20 Status: Ordered Ashlyna oral tablet TK 1 T PO QD Start Date: 10/19/19 Status: Ordered fluticasone 250 mcg/inh inhalation powder 1 puffs, Inhalation, 2 times a day, # 60 each, 11 Refills, Maintenance, 02/16/20 10:19:00 EST, Powder, [facility] #[id number], Partial fill upon patient request, 160, cm, [...] 2 Refills, Maintenance, 02/02/20 8:33:00 EST, Tablet, [facility] #[id number], 160, cm, 01/12/20 12:55:00 EDT, Height, 68, [...]
--- OUTSIDE RECORDS SUMMARY | 2022-11-14 11:41 | XMS_ITS | Continuity of Care Document ---
Author Name Unknown Organization [facility] Address [address] [place] [id number]- Care Team Providers Care Acute Care Occupational Therapist Name Role Phone Juan NAVA, Karla Villar Primary Care Physician En[place] [facility] [place](s): 04/29/21 - 06/04/[address] [address] Attending Physician: Leighton Nguyen MD Admitting Physician: Leighton Nguyen MD Allergies, Adverse Reactions, Alerts No Known [...] tablet, 1 Refills, Maintenance, 09/10/20 12:27:00 EDT, [facility] #[id number], Partial fill upon patient request if the prescription is for a schedule II opio... Start Date: 09/10/20 Status: Ordered Chantix Starter Pack 0.5 mg-1 mg oral tablet See Instructions, as directed on package labelling, # 1 pack/packet, 0 Refills, Maintenance, 09/10/20 12:27:00 EDT, [facility] #[id number], Partial fill upon patient request if the prescription is for a schedule II opioid drug., as directed on pa... Start Date: 09/10/20 Status: Ordered ProAir HFA 90 mcg/inh inhalation aerosol 2 puffs, Inhalation, Every 4 hours, PRN NEEDED FOR WHEEZING, # 18 Gm, 5 Refills, [facility] #[id number], 16, INHALE 2 PUFFS BY MOUTH EVERY 4 HOURS NEEDED FOR WHEEZING, 160, cm, 09/10/20 12:00:00 EDT, Height Start Date: 04/06/21 Status: Ordered QUEtiapine 50 mg oral tablet 1 tablet, By Mouth, Daily at bedtime, # 90 tablet, 3 Refills, [facility] #[id number], 160, cm,09/10/20 12:00:00 EDT, Height Start Date: [...]
--- OUTSIDE RECORDS SUMMARY | 2022-11-14 11:41 | XMS_ITS | Continuity of Care Document ---
Author Name Unknown Organization [facility] Adult Address [address] [place] [address]- Care Team Providers Care Suture Polisher Name Role Phone Giovany Guevara MD Primary Care Physician ( [phone] [place] [facility] [place] - 07/07/[address] [address] [facility] Encounter Diagnosis Rectal pain(Discharge Diagnosis) - 06/30/19 Attending Physician: Giovany Guevara MD Allergies, Adverse Reactions, Alerts Substance Reaction Severity Status NKA Active Immunizations Given and Recorded Vaccine Date Status Refusal Reason influenza virus vaccine, inactivated 12/09/18 Give n Medications gabapentin 100 mg oral capsule 300 mg, 3, capsule, By Mouth, 3 times a day, # 90 capsule, Refills 0, Maintenance, 06/30/19 10:07:00 EDT Start Date: 06/30/19 Status: Ordered Lexapro 10 mg oral tablet [...] Diagnosis Diagnosis Type Effective Dates Health Status Clini senait Service Informant Rectal pain Discharge Diagnosis 06/30/19 Social History Social History Type Response Smoking Status 10 or more cigarette s (1/2 pack or more)/day in last 30 days; Other: From 13 years; entered on: 12/09/18 Sex
--- OUTSIDE RECORDS SUMMARY | 2022-11-14 11:41 | XMS_ITS | Continuity of Care Document ---
Author Name Unknown Organization [facility] Address [address] [place] [address]- Care Team Providers Care Dormitory Maid Name Role Phone Juan NAVA, Karla Villar Primary Care Physician [phone] Encounter [facility] [place] Date(s): 05/13/21 - 06/18/[address] [address] Attending Physician: Leighton Nguyen MD Admitting [...] tablet, 1 Refills, Maintenance, 09/10/20 12:27:00 EDT, [facility] #[id number], Partial fill upon patient request if the prescription is for a schedule II opio... Start Date: 09/10/20 Status: Ordered Chantix Starter Pack 0.5 mg-1 mg oral tablet See Instructions, as directed on package labelling, # 1 pack/packet, 0 Refills, Maintenance, 09/10/20 12:27:00 EDT, [facility] #[id number], Partial fill upon patient request if the prescription is for a schedule II opioid drug., as directed on pa... Start Date: 09/10/20 Status: Ordered ProAir HFA 90 mcg/inh inhalation aerosol 2 puffs, Inhalation, Every 4 hours, PRN NEEDED FOR WHEEZING, # 18 Gm, 5 Refills, [facility] #[id number], 16, INHALE 2 PUFFS BY MOUTH EVERY 4 HOURS NEEDED FOR WHEEZING, 160, cm, 09/10/20 12:00:00 EDT, Height Start Date: 04/06/21 Status: Ordered QUEtiapine 50 mg oral tablet 1 tablet, By Mouth, Daily at bedtime, # 90 tablet, 3 Refills, [facility] #[id number], 160, cm,09/10/20 12:00:00 EDT, Height Start Date: [...]
--- OUTSIDE RECORDS SUMMARY | 2022-11-14 11:41 | XMS_ITS | Continuity of Care Document ---
Author Name Unknown Organization [facility] Adult Address [address] [place] [address]- Care Team Providers Care Case Monitor Name Role Phone Ismael RAMIREZ, [facility] Primary Care Physician En[place] [facility] [place] 10/19/19 - 11/18/19 [facility] Adult [address] [place] [address]- [facility] Allergies, Adverse Reactions, Alerts Substance Reaction Severity [...] kit, 0 Refills, Maintenance, 10/23/19 13:30:00 EDT, [facility] #[id number], 1 tablet By Mouth 2 times a [...] 1 Refills, Maintenance, 09/28/19 9:29:00 EDT, Tablet, [facility] #[id number], 160, cm, 03/13/19 9:14:00 EST, Height, 68, [...]
--- OUTSIDE RECORDS SUMMARY | 2022-11-14 11:41 | XMS_ITS | Continuity of Care Document ---
Author Name Unknown Organization [facility] Adult Address [address] [place] [address]- Care Team Providers Care Cavalry Officer Name Role Phone Ismael RAMIREZ, [facility] Primary Care Physician ( [phone] [place] [facility] [place] 10/18/19 - 11/17/19 [facility] Adult [address] [place] [address]- [facility] Allergies, Adverse Reactions, Alerts Substance Reaction [...] kit, 0 Refills, Maintenance, 10/23/19 13:30:00 EDT, [facility] #[id number], 1 tablet By Mouth 2 times a [...] 1 Refills, Maintenance, 09/28/19 9:29:00 EDT, Tablet, [facility] #[id number], 160, cm, 03/13/19 9:14:00 EST, Height, 68, [...]
--- OUTSIDE RECORDS SUMMARY | 2022-11-14 11:41 | XMS_ITS | Continuity of Care Document ---
Author Name Unknown Organization [facility] Address [address] [place] [address]- Care Team Providers Care Automation And Controls Manager Name Role Phone Juan NAVA, Karla Villar Primary Care Physician En[place] [facility] [place] Date(s): 03/25/21 - 04/30/[address] [address] Attending Physician: Leighton Nguyen MD Admitting Physician: Leighton Nguyen MD Allergies, Adverse Reactions, Alerts No Known Allergies Immunizations Given and Recorded Vaccine Date Status Refusal Reason SARS-CoV-2 (COVID-19) mRNA-1273 vaccine 07/11/20 R ecorded SARS-CoV-2 (COVID-19) mRNA-1273 vaccine 06/13/20 R ecorded influenza virus vaccine, inactivated 01/12/20 Give n influenza virus vaccine, inactivated 12/09/18 Give n influenza virus vaccine, inactivated 01/04/14 Jessu rded influenza virus vaccine, inactivated 11/30/12 Jesus rded tetanus/diphtheria/pertussis, acel(Tdap) 06/20/15 Recorded Medications Ashlyna oral tablet TK 1 T PO QD Start Date: 10/19/19 Status: Ordered chantix 1mg tablet 1 tablet = 1 mg, By Mouth, 2 times a day, beginning WEEK 5 until end of treatment, # 60 tablet, 1 Refills, Maintenance, 09/10/20 12:27:00 EDT, [facility] #[id number], Partial fill upon patient request if the prescription is for a schedule II opio... Start Date: 09/10/20 Status: Ordered Chantix Starter Pack 0.5 mg-1 mg oral tablet See Instructions, as directed on package labelling, # 1 pack/packet, 0 Refills, Maintenance, 09/10/20 12:27:00 EDT, [facility] #[id number], Partial fill upon patient request if the prescription is for a schedule II opioid drug., as directed on pa... Start Date: 09/10/20 Status: Ordered ProAir HFA 90 mcg/inh inhalation aerosol 2 puffs, Inhalation, Every 4 hours, PRN NEEDED FOR WHEEZING, # 18 Gm, 5 Refills, [facility] #[id number], 16, INHALE 2 PUFFS BY MOUTH EVERY 4 HOURS NEEDED FOR WHEEZING, 160, cm, 09/10/20 12:00:00 EDT, Height Start Date: 04/06/21 Status: Ordered QUEtiapine 50 mg oral tablet 1 tablet, By Mouth, Daily at bedtime, # 90 tablet, 3 Refills, [facility] #[id number], 160, cm,09/10/20 12:00:00 EDT, Height Start Date: [...]
--- OUTSIDE RECORDS SUMMARY | 2022-11-14 11:41 | XMS_ITS | Continuity of Care Document ---
Author Name Unknown Organization [facility] Address [address] [place] [address]- Care Team Providers Care Doctor Of Nurse Anesthesia Name Role Phone Leighton Nguyen MD Primary Care Physician [place] [facility] [place] 09/10/20 - 10/10/20 [facility] Adult [address] [place] [address]- Attending Physician: Admtr, Ar8 Admitting Physician: Admtr, Ar8 Referring Physician: Admtr, [...] 02/15/2010:20:00 EST, Aerosol, Route to Pharmacy Electronically, NCPDP_[id number], [facility] #[id number], 160, cm, 02/16/20 9:16:00 EST, Height, 68, kg,... Start Date: 02/16/20 Status: Ordered Ashlyna oral tablet TK 1 T PO QD Start Date: 10/19/19 Status: Ordered chantix 1mg tablet 1 tablet = 1 mg, By Mouth, 2 times a day, beginning WEEK 5 until end of treatment, # 60 tablet, 1 Refills, Maintenance, 09/10/20 12:27:00 EDT, [facility] #[id number], Partial fill upon patient request if the prescription is for a schedule II opio... Start Date: 09/10/20 Status: Ordered Chantix Starter Pack 0.5 mg-1 mg oral tablet See Instructions, as directed on package labelling, # 1 pack/packet, 0 Refills, Maintenance, 09/10/20 12:27:00 EDT, [facility] #[id number], Partial fill upon patient request if the prescription is for a schedule II opioid drug., as directed on pa... Start Date: 09/10/20 Status: Ordered QUEtiapine 50 mg oral tablet 1 tablet = 50 mg, By Mouth, Daily, # 30 tablet, 2 Refills, Maintenance, 07/31/20 8:33:00 EDT, Tablet, [facility] #[id number], 160, cm, 02/16/20 9:16:00 EST, Height, 68, [...]
--- OUTSIDE RECORDS SUMMARY | 2022-11-14 11:41 | XMS_ITS | Continuity of Care Document ---
Author Name Unknown Organization [facility] Address [address] [place] [address]- Care Team Providers Care Teachers' Assistant Name Role Phone Leighton Nguyen MD Primary Care Physician Encounter [facility] Date(s): 10/15/20 - 11/14/20 [facility] Adult [address] [place] [address]- Allergies, Adverse Reactions, Alerts Substance Reaction Severity [...] 02/15/2010:20:00 EST, Aerosol, Route to Pharmacy Electronically, NCPDP_[id number], [facility] #[id number], 160, cm, 02/16/20 9:16:00 EST, Height, 68, kg,... Start Date: 02/16/20 Status: Ordered Ashlyna oral tablet TK 1 T PO QD Start Date: 10/19/19 Status: Ordered chantix 1mg tablet 1 tablet = 1 mg, By Mouth, 2 times a day, beginning WEEK 5 until end of treatment, # 60 tablet, 1 Refills, Maintenance, 09/10/20 12:27:00 EDT, [facility] #[id number], Partial fill upon patient request if the prescription is for a schedule II opio... Start Date: 09/10/20 Status: Ordered Chantix Starter Pack 0.5 mg-1 mg oral tablet See Instructions, as directed on package labelling, # 1 pack/packet, 0 Refills, Maintenance, 09/10/20 12:27:00 EDT, [facility] #[id number], Partial fill upon patient request if the prescription is for a schedule II opioid drug., as directed on pa... Start Date: 09/10/20 Status: Ordered QUEtiapine 50 mg oral tablet 1 tablet, By Mouth, Daily at bedtime, # 30 tablet, 0 Refills, Maintenance, 10/15/20 12:30:00 EDT, [facility] #[id number], 160, cm, 09/10/20 12:00:00 EDT, Height, 68, kg, 02/16/19 18:19:00 EST, Dry Weight Start Date: 10/15/20 Status: Ordered Problem List Condition Effective Dates [...]
--- OUTSIDE RECORDS SUMMARY | 2022-11-14 11:41 | XMS_ITS | Continuity of Care Document ---
Author Name Unknown Organization [facility] Address [address] [place] [address]- Care Team Providers Care Emissions Testing And Repair Technician Name Role Phone Leighton Nguyen MD Primary Care Physician [place] [facility] [place] 09/04/20 - 09/11/20 [facility] Adult [address] [place] [address]- Attending Physician: Jamie Mao MD Referring Physician: Leighton Nguyen MD Allergies, Adverse Reactions, [...] 02/15/2010:20:00 EST, Aerosol, Route to Pharmacy Electronically, NCPDP_[id number], [facility] #[id number], 160, cm, 02/16/20 9:16:00 EST, Height, 68, kg,... Start Date: 02/16/20 Status: Ordered Ashlyna oral tablet TK 1 T PO QD Start Date: 7/23/20 Status: Ordered chantix 1mg tablet 1 tablet = 1 mg, By Mouth, 2 times a day, beginning WEEK 5 until end of treatment, # 60 tablet, 1 Refills, Maintenance, 09/10/20 12:27:00 EDT, [facility] #[id number], Partial fill upon patient request if the prescription is for a schedule II opio... Start Date: 09/10/20 Status: Ordered Chantix Starter Pack 0.5 mg-1 mg oral tablet See Instructions, as directed on package labelling, # 1 pack/packet, 0 Refills, Maintenance, 09/10/20 12:27:00 EDT, [facility] #[id number], Partial fill upon patient request if the prescription is for a schedule II opioid drug., as directed on pa... Start Date: 09/10/20 Status: Ordered QUEtiapine 50 mg oral tablet 1 tablet = 50 mg, By Mouth, Daily, # 30 tablet, 2 Refills, Maintenance, 07/31/20 8:33:00 EDT, Tablet, [facility] #[id number], 160, cm, 02/16/20 9:16:00 EST, Height, 68, [...] rosacea(Confirmed) Active Stridor(Confirmed) Active Tobacco use(Confirmed) Active Vital Signs Most recent to oldest [Reference Range]: 1 Height 160 cm (09/04/20 9:28 AM) Weight 84.9 kg (09/04/20 9:28 AM) Oxygen Saturation [94-100 %] 98 % (09/04/20 9:28 AM) Pulse Rate [55-90 bpm] 98 bpm *H* (09/04/20 9:28 AM) Body Mass Index [18.5-24.99] 33.16 *>HHI* (09/04/20 9:28 AM) Blood Pressure [90-138/55-84 mm Hg] 116/ 78mm Hg (09/04/20 9:28 AM) Respiratory Rate [16-30 br/min] 16 br/mi n (09/04/20 9:28 AM) Temperature [96.8-100.4 DegF] 98.1 DegF (09/04/20 9:28 AM) Mode of Delivery (Oxygen) Room air (09/04/20 9:28 AM) Blood pressure sites Arm, left (09/04/20 9:28 AM) Temperature Route Oral (09/04/20 9:28 AM) Weight Obtained Via Standing scale (09/04/20 9:28 AM) Social History Social History Type Response Smoking Status 10 or more cigarette s (1/2 pack or more)/day in last 30 days; Other: From 13 years; entered on: 12/09/18 Sex
--- OUTSIDE RECORDS SUMMARY | 2022-11-14 11:41 | XMS_ITS | Continuity of Care Document ---
Author Name Unknown Organization [facility] Address [address] [place] [address]- Care Team Providers Care Metal Leaf Layer Name Role Phone Leighton Nguyen MD Primary Care Physician En[place] [facility] [place] Date(s): 02/16/20 - 03/17/20 [facility] Adult [address] [place] [address]- Attending Physician: Admtr, Ar8 Admitting Physician: Admtr, [...] 02/15/2010:20:00 EST, Aerosol, Route to Pharmacy Electronically, NCPDP_[id number], [facility] #[id number], 160, cm, 02/16/20 9:16:00 EST, Height, 68, kg,... Start Date: 02/16/20 Status: Ordered Ashlyna oral tablet TK 1 T PO QD Start Date: 10/19/19 Status: Ordered fluticasone 250 mcg/inh inhalation powder 1 puffs, Inhalation, 2 times a day, # 60 each, 11 Refills, Maintenance, 02/16/20 10:19:00 EST, Powder, [facility] #[id number], Partial fill upon patient request, 160, cm, [...] 2 Refills, Maintenance, 02/02/20 8:33:00 EST, Tablet, [facility] #[id number], 160, cm, 01/12/20 12:55:00 EDT, Height, 68, [...]
--- OUTSIDE RECORDS SUMMARY | 2022-11-14 11:41 | XMS_ITS | Continuity of Care Document ---
Author Name Unknown Organization [facility] Adult Address [address] [place] [address]- Care Team Providers Care Quality Control Operator Name Role Phone sImael RAMIREZ, [facility] Primary Care Physician [place] [facility] [place]/19 [facility] Adult [address] [place] [address] [facility] Attending Physician: Nelda Rodriguez Admitting Physician: Nelda Rodriguez Referring Physician: AdmtrNelda Allergies, Adverse Reactions, Alerts Substance Reaction Severity [...]
--- OUTSIDE RECORDS SUMMARY | 2022-11-14 11:41 | XMS_ITS | Continuity of Care Document ---
Author Name Unknown Organization [facility] Address [address] [place] [address]- Care Team Providers Care Extracting Machine Operator Name Role Phone Ismael RAMIREZ, [facility] Primary Care Physician ( [phone] Encounter [facility] Date(s): 10/04/19 - 11/04/19 [facility] [address] [place] [address]- [facility] Attending Physician: Kushal Guerrero MD Allergies, Adverse Reactions, Alerts Substance Reaction [...] kit, 0 Refills, Maintenance, 10/23/19 13:30:00 EDT, [facility] #[id number], 1 tablet By Mouth 2 times a [...] 1 Refills, Maintenance, 09/28/19 9:29:00 EDT, Tablet, [facility] #[id number], 160, cm, 03/13/19 9:14:00 EST, Height, 68, [...]
--- OUTSIDE RECORDS SUMMARY | 2022-11-14 11:41 | XMS_ITS | Continuity of Care Document ---
Author Name Unknown Organization [facility] Adult Address [address] [place] [address]- Care Team Providers Care Supervisor Blueprinting And Photocopy Name Role Phone Ismael RAMIREZ, Giovany Primary Care Physician ( [phone] Encounter [facility] [place] Date(s): 03/13/19 - 06/28/[address] [address]- [facility] Attending Physician: Giovany Guevara MD Allergies, Adverse [...]
--- OUTSIDE RECORDS SUMMARY | 2022-11-14 11:41 | XMS_ITS | Continuity of Care Document ---
Author Name Unknown Organization [facility] Adult Address [address] [place] [address]- Care Team Providers Care Stull Hewer Name Role Phone Ismael RAMIREZ, [facility] Primary Care Physician Encounter [facility] [id number] Date(s): 10/23/19 - 11/22/19 [facility] Adult [address] [place] [address]- [facility] Attending Physician: Nelda Rodriguez Admitting Physician: AdmNelda [...] kit, 0 Refills, Maintenance, 10/23/19 13:30:00 EDT, [facility] #[id number], 1 tablet By Mouth 2 times a [...] 1 Refills, Maintenance, 09/28/19 9:29:00 EDT, Tablet, [facility] #47912, 160, cm, 03/13/19 9:14:00 EST, Height, 68, [...]
--- OUTSIDE RECORDS SUMMARY | 2022-11-14 11:41 | XMS_ITS | Continuity of Care Document ---
Author Name Unknown Organization [facility] Address [address] [place] [address]- Care Team Providers Care Vocal Artist Name Role Phone Wendy RAMIREZ, Leighton Garcia Primary Care Physician [phone] Encounter [facility] Date(s): 01/16/21 - 03/15/21 [facility] [address] [place], [place] [address] Attending Physician: Ezequiel NAVA, Marie Stover Allergies, Adverse Reactions, Alerts Substance Reaction Severity [...] 02/15/2010:20:00 EST, Aerosol, Route to Pharmacy Electronically, NCPDP_[id number], [facility] #[id number], 160, cm, 02/16/20 9:16:00 EST, Height, 68, kg,... Start Date: 02/16/20 Status: Ordered Ashlyna oral tablet TK 1 T PO QD Start Date: 10/19/19 Status: Ordered chantix 1mg tablet 1 tablet = 1 mg, By Mouth, 2 times a day, beginning WEEK 5 until end of treatment, # 60 tablet, 1 Refills, Maintenance, 09/10/20 12:27:00 EDT, [facility] #[id number], Partial fill upon patient request if the prescription is for a schedule II opio... Start Date: 09/10/20 Status: Ordered Chantix Starter Pack 0.5 mg-1 mg oral tablet See Instructions, as directed on package labelling, # 1 pack/packet, 0 Refills, Maintenance, 09/10/20 12:27:00 EDT, [facility] #[id number], Partial fill upon patient request if the prescription is for a schedule II opioid drug., as directed on pa... Start Date: 09/10/20 Status: Ordered QUEtiapine 50 mg oral tablet 1 tablet, By Mouth, Daily at bedtime, PER DR REYNOLDS, # 90 tablet, 0 Refills, Maintenance, 01/20/21 12:53:00 EDT, [facility] #[id number], 160, cm, 09/10/20 12:00:00 EDT, Height, 68, [...]
--- OUTSIDE RECORDS SUMMARY | 2022-11-14 11:41 | XMS_ITS | Continuity of Care Document ---
Author Name Unknown Organization [facility] [place] Address [address] [place] [address]- Care Team Providers Care Treatment Technician Name Role Phone Leighton Reynolds MD Primary Care Physician Encounter [facility] Date(s): 02/13/21 - 03/15/21 [facility] [place] [address] [place] [address]- Attending Physician: Admtr, Ar8 Admitting Physician: Admtr, Milton8 Referring Physician: Admtr, [...] 02/15/2010:20:00 EST, Aerosol, Route to Pharmacy Electronically, NCPDP_[id number], [facility][id number], 160, cm, 02/16/20 9:16:00 EST, Height, 68, kg,... Start Date: 02/16/20 Status: Ordered Ashlyna oral tablet TK 1 T PO QD Start Date: 10/19/19 Status: Ordered chantix 1mg tablet 1 tablet = 1 mg, By Mouth, 2 times a day, beginning WEEK 5 until end of treatment, # 60 tablet, 1 Refills, Maintenance, 09/10/20 12:27:00 EDT, [facility] #[id number], Partial fill upon patient request if the prescription is for a schedule II opio... Start Date: 09/10/20 Status: Ordered Chantix Starter Pack 0.5 mg-1 mg oral tablet See Instructions, as directed on package labelling, # 1 pack/packet, 0 Refills, Maintenance, 09/10/20 12:27:00 EDT, [facility] #[id number], Partial fill upon patient request if the prescription is for a schedule II opioid drug., as directed on pa... Start Date: 09/10/20 Status: Ordered QUEtiapine 50 mg oral tablet 1 tablet, By Mouth, Daily at bedtime, PER DR REYNOLDS, # 90 tablet, 0 Refills, Maintenance, 01/20/21 12:53:00 EDT, [facility] #24421, 160, cm, 09/10/20 12:00:00 EDT, Height, 68, [...]
--- OUTSIDE RECORDS SUMMARY | 2022-11-14 11:41 | XMS_ITS | Continuity of Care Document ---
Author Name Unknown Organization [facility] Address [address] [place] [address]- Care Team Providers Care Manufacturer Name Role Phone Juan NAVA, Karla Villar Primary Care Physician En[place] [facility] [place] Date(s): 04/16/22 - 05/16/22 [facility] [address] [place] [address]- Attending Physician: Admtr, Ar8 Admitting Physician: Admtr, Ar8 Referring Physician: Admtr, Ar8 Allergies, Adverse Reactions, Alerts No Known Allergies [...] Jesus rded tetanus/diphtheria/pertussis, acel(Tdap) 06/20/15 Recorded Medications baclofen 20 mg oral tablet 20 mg, 1, tablet, By Mouth, 3 times a day, Refills 0, Maintenance, 02/02/22 14:23:00 EST, Partial fill upon patient request if the prescription is for a schedule II opioid drug. Start Date: 02/02/22 Status: Ordered guanFACINE 1 mg oral tablet, extended release 1 tablet = 1 mg, By Mouth, Daily, Start this script 1st., # 7 tablet, 0 Refills, Maintenance, 05/11/22 9:41:00 EST, ER Tablet, [facility] #[id number], Partial fill upon patient request if the prescription is for a schedule II opioid drug., 160, c... Start Date: 05/11/22 Stop Date: 05/18/22 Status: Ordered guanFACINE 2 mg oral tablet, extended release 1 tablet = 2 mg, By Mouth, Daily, After 1st script is completed, then take this medication daily., # 30 tablet, 1 Refills, Maintenance, 05/11/22 9:45:00 EST, ER Tablet, [facility] #[id number], Partial fill upon patient request if the prescription... Start Date: 05/11/22 Status: Ordered Latuda 40 mg oral tablet 1 tablet = 40 mg, By Mouth, Daily, # 30 tablet, 1 Refills, Maintenance, 05/11/22 9:46:00 EST, Tablet, [facility] #[id number], Partial fill upon patient request if the prescription is for a schedule II opioid drug., 160, cm, 01/14/22 8:04:00 EDT,... Start Date: 05/11/22 Status: Ordered lithium 300 mg oral capsule 1 capsule = 300 mg, By Mouth, 2 times a day, # 60 capsule, 1 Refills, Maintenance, 04/16/22 7:49:00EST, Capsule, [facility] #[id number], Partial fill upon patient request if the prescription isfor a schedule II opioid drug., 160, cm, 01/14/22 8... Start Date: 04/16/22 Status: Ordered olanzapine 5 mg oral tablet 5 mg, 1, tablet, By Mouth, Daily, PRN, # 90 tablet, Refills 2, Tot. Refills 2, Maintenance, Agitation, 04/17/22 12:35:00 EST, Route to Pharmacy Electronically, [facility] #[id number], Partial fill upon patient request if the prescription is for a... Start Date: 04/17/22 Status: Ordered ProAir HFA 90 mcg/inh inhalation aerosol 2 puffs, Inhalation, Every 4 hours, PRN NEEDED FOR WHEEZING, # 18 Gm, 5 Refills, [facility] #[id number], 16, INHALE 2 PUFFS BY MOUTH EVERY 4 HOURS NEEDED FOR WHEEZING, 160, cm, 06/15/21 12:00:00 EDT, Height Start Date: 04/06/21 Status: Ordered QUEtiapine 25 mg oral tablet 25 mg, 1, tablet, By Mouth, Daily at bedtime, # 30 tablet, Refills 4, Tot. Refills 4, Maintenance, 03/19/22 9:05:00 EST, Route to Pharmacy Electronically, [facility] #[id number], Partial fill upon patient request if the prescription is for a sche... Start Date: 03/19/22 Status: Ordered Valium 10 mg oral tablet See Instructions, PRN, 1 tablet By Mouth 2 times a day PRN inserted vaginally for vaginal wall spasm., Refills 0, Maintenance, Spasm, 12/08/21 8:33:00 EDT, Instructions Replace Required Details, Partial fill upon patient request if the prescription is... Start Date: 12/08/21 Status: Ordered Problem List Condition Confirmation Course Effective Dates Status H ealth Status Informant Anxiety Confirmed Active Persistent asthma without complication Confirmed Active Bipolar disorder, current episode depressed, moderate Confirmed Active IC (interstitial cystitis) Confirmed Active [...] Active Social History Social History Type Response Tobacco Use: 02/03/2022 2 wee ks no cigarettes. Interested in cessation: No. Yes, Type: Cigarettes. Exposure to Secondhand Smoke: No. Started at age: 13 Years. Previous treatment: Nicotine replacement. Cessation attempts: 1. Tobacco user in household: No. Sex Patient Care team information Care Team Personnel Name: Karla Martinez NP Position: [facility] PCO Associate Professional Member Role: PCP Address: Address: [address] [place] [address]- Name: Tawny Christine Position: [facility] RN Member Role: Primary Care Nurse Care Team Related Persons Name: ELA ERNESTO Address: home [address] [place] [address] Name: BOLA VAZQUEZ Address: home [address] [place] [address] Name: THIAGO VAZQUEZ Address: home [address] [place] [address]
--- OUTSIDE RECORDS SUMMARY | 2022-11-14 11:41 | XMS_ITS | Continuity of Care Document ---
Author Name Unknown Organization [facility] Address [address] [place] [address]- Care Team Providers Care Boring Mill Operator For Metal Name Role Phone Ismael RAMIREZ, [facility] Primary Care Physician Encounter [facility] [place] Date(s): 10/11/19 - 11/10/19 [facility] [address] [place] [address]- [facility] Allergies, Adverse Reactions, Alerts Substance [...] kit, 0 Refills, Maintenance, 10/23/19 13:30:00 EDT, [facility] #[id number], 1 tablet By Mouth 2 times a [...] 1 Refills, Maintenance, 09/28/19 9:29:00 EDT, Tablet, [facility] #[id number], 160, cm, 03/13/19 9:14:00 EST, Height, 68, [...]
--- OUTSIDE RECORDS SUMMARY | 2022-11-14 11:41 | XMS_ITS | Continuity of Care Document ---
Author Name Unknown Organization [facility] Address [address] [place] [address]- Care Team Providers Care Licensed Acupuncturist Name Role Phone Juan NAVA, Karla Villar Primary Care Physician Encounter [facility] [place] Date(s): 01/16/22 - 05/16/22 [facility] [address] [place] [address]- Attending Physician: Karla Martinez NP Referring Physician: Musa RAMIREZ, Mike Sanchez Allergies, Adverse Reactions, Alerts No Known Allergies [...] Refills, Maintenance, 05/11/22 9:41:00 EST, ER Tablet, [facility] #[id number], Partial fill upon patient request if the prescription is for a schedule II opioid drug., 160, c... Start Date: 05/11/22 Stop Date: 05/18/22 Status: Ordered guanFACINE 2 mg oral tablet, extended release 1 tablet = 2 mg, By Mouth, Daily, After 1st script is completed, then take this medication daily., # 30 tablet, 1 Refills, Maintenance, 05/11/22 9:45:00 EST, ER Tablet, [facility] #[id number], Partial fill upon patient request if the prescription... Start Date: 05/11/22 Status: Ordered Latuda 40 mg oral tablet 1 tablet = 40 mg, By Mouth, Daily, # 30 tablet, 1 Refills, Maintenance, 05/11/22 9:46:00 EST, Tablet, [facility] #[id number], Partial fill upon patient request if the prescription is for a schedule II opioid drug., 160, cm, 01/14/22 8:04:00 EDT,... Start Date: 05/11/22 Status: Ordered lithium 300 mg oral capsule 1 capsule = 300 mg, By Mouth, 2 times a day, # 60 capsule, 1 Refills, Maintenance, 04/16/22 7:49:00EST, Capsule, [facility] #[id number], Partial fill upon patient request if the prescription isfor a schedule II opioid drug., 160, cm, 01/14/22 8... Start Date: 04/16/22 Status: Ordered olanzapine 5 mg oral tablet 5 mg, 1, tablet, By Mouth, Daily, PRN, # 90 tablet, Refills 2, Tot. Refills 2, Maintenance, Agitation, 04/17/22 12:35:00 EST, Route to Pharmacy Electronically, [facility] #[id number], Partial fill upon patient request if the prescription is for a... Start Date: 04/17/22 Status: Ordered ProAir HFA 90 mcg/inh inhalation aerosol 2 puffs, Inhalation, Every 4 hours, PRN NEEDED FOR WHEEZING, # 18 Gm, 5 Refills, [facility] #[id number], 16, INHALE 2 PUFFS BY MOUTH EVERY 4 HOURS NEEDED FOR WHEEZING, 160, cm, 09/10/20 12:00:00 EDT, Height Start Date: 04/06/21 Status: Ordered QUEtiapine 25 mg oral tablet 25 mg, 1, tablet, By Mouth, Daily at bedtime, # 30 tablet, Refills 4, Tot. Refills 4, Maintenance, 03/19/22 9:05:00 EST, Route to Pharmacy Electronically, [facility] #[id number], Partial fill upon patient request if the [...] Team Personnel Name: Karla Martinez NP Position: [facility] PCO Associate Professional Member Role: PCP Address: Address: [address] [place] [address]- Name: Tawny Christine Position: [facility] RN Member Role: Primary Care Nurse Care Team Related Persons Name: ERNESTO MAHMOOD Address: [address] [address] Name: BOLA VAZQUEZ Address: home [address] [place] [address] Name: THIAGO VAZQUEZ Address: home [address] [place] [address]
--- OUTSIDE RECORDS SUMMARY | 2022-11-14 11:41 | XMS_ITS | Continuity of Care Document ---
Author Name Unknown Organization [facility] Adult Address [address] [place] [address]- Care Team Providers Care Nuclear Cardiology Technologist Name Role Phone Giovany Guevara MD Primary Care Physician En[place] [facility] [place](s): 03/13/19 - 03/20/[address] [address]- [facility] Encounter Diagnosis Anxiety(Discharge Diagnosis) - 03/13/19 Endometriosis(Discharge Diagnosis) - 03/13/19 Attending Physician: Giovany Guevara MD Allergies, Adverse [...] 9:57:03 EST, Tablet, [facility] [address], 160, cm, 03/13/19 9:14:58 EST, Height, [...] Dates Health Status Cl inical Service Informant Anxiety Discharge Diagnosis 03/13/19 Endometriosis Discharge Diagnosis 03/13/19 Vital Signs Most recent to oldest [Reference Range]: 1 Height 160 cm (03/13/19 9:14 AM) Weight 71.3 kg (03/13/19 9:14 AM) Oxygen Saturation [94-100 %] 99 % (03/13/19 9:14 AM) Pulse Rate [55-90 bpm] 105 bpm *H* (03/13/19 9:14 AM) Body Mass Index [18.5-24.99] 27.85 *H* (03/13/19 9:14 AM) Blood Pressure [90-138/55-84 mm Hg] 110/ 74mm Hg (03/13/19 9:14 AM) Temperature [96.8-100.4 DegF] 98.5 DegF (03/13/19 9:14 AM) Mode of Delivery (Oxygen) Room air (03/13/19 9:14 AM) Blood pressure sites Arm, left (03/13/19 9:14 AM) Temperature Route Oral (03/13/19 9:14 AM) Weight Obtained Via Standing scale (03/13/19 9:14 AM) Social History Social History Type Response Smoking Status 10 or more cigarette s (1/2 pack or more)/day in last 30 days; Other: From 13 years; entered on: 12/09/18 Sex
--- OUTSIDE RECORDS SUMMARY | 2022-11-14 11:41 | XMS_ITS | Continuity of Care Document ---
Author Name Unknown Organization [facility] ter Address [address] [place] [address]- Care Team Providers Care Electronic Tester Name Role Phone Ismael RAMIREZ, Giovany Primary Care Physician ( [phone] Encounter [facility] [place] Date(s): 09/26/19 - 10/26/[address] [address]- [facility] Allergies, Adverse Reactions, Alerts Substance Reaction [...] kit, 0 Refills, Maintenance, 10/23/19 13:30:00 EDT, [facility] #[id number], 1 tablet By Mouth 2 times a [...] 1 Refills, Maintenance, 09/28/19 9:29:00 EDT, Tablet, [facility] #[id number], 160, cm, 03/13/19 9:14:00 EST, Height, 68, [...]
--- OUTSIDE RECORDS SUMMARY | 2022-11-14 11:41 | XMS_ITS | Continuity of Care Document ---
Author Name Unknown Organization [facility] Address [address] [place] [address]- Care Team Providers Care Mechanical Engineering Lecturer Name Role Phone Juan NAVA, Karla Villar Primary Care Physician [phone] Encounter [facility] [place] Date(s): 06/02/21 - 07/02/21 [facility] Adult [address] [place] [address]- Attending Physician: Admsalima, Milton8 Admitting Physician: AdmtrNelda [...] tablet, 1 Refills, Maintenance, 09/10/20 12:27:00 EDT, [facility] #[id number], Partial fill upon patient request if the prescription is for a schedule II opio... Start Date: 09/10/20 Status: Ordered Chantix Starter Pack 0.5 mg-1 mg oral tablet See Instructions, as directed on package labelling, # 1 pack/packet, 0 Refills, Maintenance, 09/10/20 12:27:00 EDT, [facility] #[id number], Partial fill upon patient request if the prescription is for a schedule II opioid drug., as directed on pa... Start Date: 09/10/20 Status: Ordered ProAir HFA 90 mcg/inh inhalation aerosol 2 puffs, Inhalation, Every 4 hours, PRN NEEDED FOR WHEEZING, # 18 Gm, 5 Refills, [facility] #[id number], 16, INHALE 2 PUFFS BY MOUTH EVERY 4 HOURS NEEDED FOR WHEEZING, 160, cm, 09/10/20 12:00:00 EDT, Height Start Date: 04/06/21 Status: Ordered QUEtiapine 50 mg oral tablet 1 tablet, By Mouth, Daily at bedtime, # 90 tablet, 3 Refills, [facility] #[id number], 160, cm,09/10/20 12:00:00 EDT, Height Start Date: [...]
--- OUTSIDE RECORDS SUMMARY | 2022-11-14 11:42 | XMS_ITS | Continuity of Care Document ---
Author Name Unknown Address [address] [place] [address] Phone Organization [facility] Address [address] [place] [address] Phone Support Name Relationship Address Phone Giovany Guevara Primary Care Provider [address] [place] [address] ParentCarolyn Attending Provider [address] [place] [address] Allergies, Adverse Reactions, Alerts No known allergies. Medications Medication Status Dose Units Route Directions Qty Days St art Date End Date Instructions Gabapentin Active 600 MG Oral Every Day At Bedtime November 02, 2019 6:34pm Gabapentin Active 300 MG Oral Twice A Day A ugust 2019 6:34pm Quetiapine Active 50 MG Oral Every Day At Bedtime November 02, 2019 6:34pm Varenicline Active 1 TAB Oral Daily Augus t 2019 6:34pm L Norgest/E.Est radiol-E.Estr ad Active 1 TAB Oral Daily November 02, 2019 6:34pm Problems No problem information available. Procedures Procedure Date Performed Status Diagnostic Laparoscopy (Not Applicable) October 282019 10:15am completed Relevant Diagnostic Tests and/or Laboratory Data Laboratory Results Test Date/Time Result Interpretation Reference Range Result Comment Performing Site POC Urine HCG Quantitative November 17, 2019 8:48am Negative Negative [facility], [place] [address] Coronavirus (PCR) November 15, 2019 9:03am Neg NEG This result is a copy from [facility].Please note: The clinical performance characteristics of COVID-19 PCR tests are still being defined. Therefore, a negative test does not exclude COVID-19 infection, and clinical diagnosis should not be made based solely on results from COVID-19 PCR testing. More information on use and interpretation of COVID-19 PCR testing is available on coronavirus central on the [facility] portal. Test performed: [facility] - [id number] [place] [address] Dr. Mannie Sorensen MD PhD, MSCLIA [id number]. CAP [id number]: [phone] [facility], [address] [place] [address] [facility] [address] Advance Directives Advance Directive Response Recorded Date/ Time Does the patient have a Healthcare Proxy? No November 17, 2019 10:49am Date Patient Queried 11/17/19October 10:49am Healthcare Proxy Status Unable to Give October 282019 10:49am Chief Complaint and Reason for Visit Chief Complaint pre procedure covid surgery ENDOMETRIOSIS, PELVIC PAIN, DYSMENORRHEA Encounters Encounter Location(s) Arrival/Admit Date Discharge/Depart Date Provider(s) Departed Clinical [facility] Preop Testing November 15, 2019 6:58am November 15, 2019 6:59am Carolyn Abdi DO Departed Surgical Day Care [facility] Customer Liaison Unit November 17, 2019 10:48am November 17, 2019 2:30pm Carolyn Abdi DO Assessments No Assessments Information Available Functional Status No Functional Status information available Goals Goals may be documented in an alternate section. Mental Status No Mental Status Information Available Medical Equipment No Medical Equipment Information available Insurance Providers Guarantor Sunita Riggs Address [address] [place] [address] Contact Info. Home Phone: Payer Policy Id Coverage Id Subscriber's Name Subscriber Id Effective Date Expiration Date Self Pay Self N/A [facility] Medicaid [id number] Sunita Riggs [id number] [facility] ACO Plan of Treatment Future Tests Future scheduled test information is unavailable Pending Tests Pending diagnostic test information is unavailable Future Visits Future appointment information is unavailable Referrals to Other Providers Reason for Referral Referral Start Date Provider Provider Contact Information Provider Address Giovany Guevara Work Alexa ne: [address] [place] [address] Future Procedures Future procedure information is unavailable Future Medications Future medication information is unavailable Patient Instructions Patient instructions are unavailable Social History Smoking Status Status Date of Observation Unknown if ever smoked November 02, 2019 6:34pm Observation Status Observation Response Date of Response Is pt a current\former smoke r or user of tobacco products? Yes, former November 02, 2019 6:34pm Does the patient use drugs? No Augu 2019 6:34pm On average how many days per week do you drink alcohol? 0 November 02, 2019 6:34pm Assigned Sex Female Vital Signs Vital Reading Result Reference Range Collection Date/Time Height 63.5 [in_i] November 01 0 6:33pm Weight 79.37 kg November 01 6:33pm Body Temperature 97.4 [degF] 97.5-99.3 October 2:30pm Heart Rate 71 /min 60-90 November 16 2:30pm Respiratory rate 15 /min 12-October 2:30pm Oxygen saturation by Pulse oximetry 99 % 95-100 November 17, 2019 2: 30pm BP Systolic 128 mm[Hg] 100-160 November 16 2:30pm BP Diastolic 68 mm[Hg] 60-90 November 16 2:30pm
--- OUTSIDE RECORDS SUMMARY | 2022-11-14 11:42 | XMS_ITS | Continuity of Care Document ---
Author Name Unknown Organization [facility] Address [address] [place] [address]- Care Team Providers Care Ice Rink Attendant Name Role Phone Ismael RAMIREZ, Giovany Primary Care Physician Encounter [facility] Date(s): 03/16/19 - 03/26/[address] [address]- [facility] Attending Physician: Nelda Rodriguez Admitting Physician: Nelda [...]
--- OUTSIDE RECORDS SUMMARY | 2022-11-14 11:42 | XMS_ITS | Continuity of Care Document ---
Author Name Unknown Address [address] [place] [address] Phone [facility] Address [address] [place] [id number] Phone Allergies, Adverse Reactions, Alerts No known allergies Social History Smoking Status Status Start Date End Date Date of Observa tion Unknown if ever smoked Aug2019 7:34pm Observation Status Observation Response Date of Response Is pt a current\former smoke r or user of tobacco products? Yes, former November 02, 2019 6:34pm Does the patient use drugs? No 2019 6:34pm On average how many days per week do you drink alcohol? 0 November 02, 2019 6:34pm Additional Data Assigned Sex Female Medications Medication Status Dose Units Route Directions Qty Days St art Date End Date Instructions Gabapentin Active 600 MG PO Every Day At Bedtime November 02, 2019 6:34pm Gabapentin Active 300 MG PO Twice A Day A ug2019 6:34pm Quetiapine Active 50 MG PO Every Day At Bedtime November 02, 2019 6:34pm Varenicline (Chantix Starting Month Box) 0.5 mg (11)- 1 mg (42) tablets,dose pack Active 1 TAB PO Daily November 02, 2019 6:34pm L Norgest/E.Est radiol-E.Estr ad (Ashlyna) 0.15 mg-30 mcg (84)/10 mcg (7) tablets,dose pack,3 month Active 1 TAB PO Daily November 02, 2019 6:34pm Advance Directives Advance Directive Response Recorded Date/ Time Does the patient have a Healthcare Proxy? No November 17, 2019 10:49am Insurance Providers Guarantor Sunita Riggs Address [address] [address] Contact Info. Home Phone: Payer Policy Id Coverage Id Subscriber's Name Subscriber Id Effective Date Expiration Date Self Pay Self N/A [facility] Medicaid [id number] 01 [id number] Sunita Riggs [id number] [facility] ACO Plan of Treatment Future Tests Future scheduled test information is unavailable Pending Tests Pending diagnostic test information is unavailable Future Visits Future appointment information is unavailable Referrals to Other Providers Reason for Referral Referral Start Date Provider Provider Contact Information Provider Address Giovany Guevara Work Alexa ne: [address] [place] [address] Future Procedures Future procedure information is unavailable Future Medications Future medication information is unavailable Patient Instructions Patient instructions are unavailable
--- OUTSIDE RECORDS SUMMARY | 2022-11-14 11:42 | XMS_ITS | Continuity of Care Document ---
Author Name Unknown Organization [facility] Adult Address [address] [place] [address]- Care Team Providers Care Disintegrator Operator Name Role Phone Ismael RAMIREZ, [facility] Primary Care Physician ( [phone] Encounter [facility] [place](s): 10/19/19 - 11/18/19 [facility] [address] [place] [address]- [facility] Allergies, Adverse Reactions, Alerts Substance Reaction [...] kit, 0 Refills, Maintenance, 10/23/19 13:30:00 EDT, [facility] #[id number], 1 tablet By Mouth 2 times a [...] 1 Refills, Maintenance, 09/28/19 9:29:00 EDT, Tablet, [facility] #[id number], 160, cm, 03/13/19 9:14:00 EST, Height, 68, [...]
--- OUTSIDE RECORDS SUMMARY | 2022-11-14 11:42 | XMS_ITS | Continuity of Care Document ---
Author Name Unknown Address [address] [place] [address] Phone Organization [facility] Address [address] [place] [address] Phone Support Name Relationship Address Phone Giovany Guevara Primary Care Provider [address] [place] [address] ParentCarolyn Attending Provider [address] [place] [address] Allergies, Adverse Reactions, Alerts No known allergies. [...] Quantitative November 17, 2019 8:48am Negative Negative [facility], [place] [address] Coronavirus (PCR) November 15, 2019 9:03am Neg NEG This result is a copy from [facility].Please note: The clinical performance characteristics of COVID-19 PCR tests are still being defined. Therefore, a negative test does not exclude COVID-19 infection, and clinical diagnosis should not be made based solely on results from COVID-19 PCR testing. More information on use and interpretation of COVID-19 PCR testing is available on coronavirus central on the [facility] portal. Test performed: [facility] - [id number] [place] [address] Dr. Mannie Sorensen MD PhD, MSCLIA [id number]. CAP [id number]: [phone] [facility], [address] [place] [address] [facility] [address] Advance Directives Advance Directive Response Recorded Date/ Time Does the patient have a Healthcare Proxy? No November 17, 2019 10:49am Date Patient Queried 11/17/19October 10:49am Healthcare Proxy Status Unable to Give October 282019 10:49am Chief Complaint and Reason for Visit Chief Complaint pre procedure covid surgery ENDOMETRIOSIS, PELVIC PAIN, DYSMENORRHEA Encounters Encounter Location(s) Arrival/Admit Date Discharge/Depart Date Provider(s) Departed Clinical [facility] Preop Testing November 15, 2019 6:58am November 15, 2019 6:59am Carolyn Abdi DO Departed Surgical Day Care [facility] Director Loss Prevention Unit November 17, 2019 10:48am November 17, 2019 2:30pm Carolyn Abdi DO Assessments No Assessments Information Available Functional Status No Functional Status information available Goals Goals may be documented in an alternate section. Mental Status No Mental Status Information Available Medical Equipment No Medical Equipment Information available Insurance Providers Guarantor Sunita Riggs Address [address] [place] [phone] Contact Info. Home Phone: Payer Policy Id Coverage Id Subscriber's Name Subscriber Id Effective Date Expiration Date Self Pay Self N/A [facility] Medicaid [id number] Sunita Riggs [id number] [facility] ACO Plan of Treatment Future Tests Future scheduled test information is unavailable Pending Tests Pending diagnostic test information is unavailable Future Visits Future appointment information is unavailable Referrals to Other Providers Reason for Referral Referral Start Date Provider Provider Contact Information Provider Address Giovany Guevara Work Alexa ne: [address] [place] [address] Future Procedures Future procedure information is unavailable [...]
--- OUTSIDE RECORDS SUMMARY | 2022-11-14 11:42 | XMS_ITS | Continuity of Care Document ---
Author Name Unknown Organization [facility] Adult Address [address] [place] [address]- Care Team Providers Care Digital Advertising Analyst Name Role Phone Ismael RAMIREZ, [facility] Primary Care Physician ( [phone] [place] [facility] [place]/19 [facility] Adult [address] [place] [address]- [facility] Attending Physician: Nelda Rodriguez Admitting Physician: [...]
--- OUTSIDE RECORDS SUMMARY | 2022-11-14 11:42 | XMS_ITS | Continuity of Care Document ---
Author Name Unknown Organization [facility] Niall lt Address [address] [place] [address]- Care Team Providers Care Manager Electrical Name Role Phone Juan NAVA, Karla Villar Primary Care Physician [place] [facility] [place] 08/13/22 - 09/12/22 [facility] Adult [address] [place] [address]- Attending Physician: Admtr, Ar8 Admitting Physician: Admtr, [...] 10:02:00 EDT, Route to Pharmacy Electronically, NCPDP_ID- [id number], [facility] #[id number], 160, cm,01/14/22 8:04:00 EDT, Height Start Date: [...] 1 Refills, Maintenance, 07/15/22 16:14:00 EDT, Tablet, [facility] #[id number], Partial fill upon patient request if the prescription is for a schedule II opioid drug., 160, cm, 01/14/22 8:04:00 EDT,... Start Date: 07/15/22 Status: Ordered olanzapine 5 mg oral tablet 5 mg, 1, tablet, By Mouth, Daily, PRN, # 90 tablet, Refills 2, Tot. Refills 2, Maintenance, Agitation, 04/17/22 12:35:00 EST, Route to Pharmacy Electronically, [facility] #[id number], Partial fill upon patient request if the prescription is for a... Start Date: 04/17/22 Status: Ordered QUEtiapine 25 mg oral tablet 25 mg, 1, tablet, By Mouth, Daily at bedtime, # 30 tablet, Refills 3, Tot. Refills 3, Maintenance, 06/30/22 17:06:00 EDT, Route to Pharmacy Electronically, [facility] #[id number], Partial fill upon patient request if the [...] 0 Refills, Maintenance, 08/11/22 10:19:00 EDT, Capsule, [facility] #[id number], Partial fill upon patient request if the prescription is for a schedule II opioid drug., 1 capsule By Mouth Da... Start Date: 08/11/22 Status: Ordered Problem List Condition Confirmation Course [...] Team Personnel Name: Karla Martinez NP Position: [facility] PCO Associate Professional Member Role: PCP Address: Address: [address] [place] [address]- Name: Tawny Nicole [place] Position: [facility] RN Member Role: Primary Care Nurse Care Team Related Persons Name: ELA ERNESTO Address: [address] [address] Name: HUGO VAZQUEZ Address: [address] [address] Name: THIAGO VAZQUEZ Address: [address] [address]
--- OUTSIDE RECORDS SUMMARY | 2022-11-14 11:42 | XMS_ITS | Continuity of Care Document ---
Author Name Unknown Address [address] [place] [address] Phone Organization [facility] Address [address] [place] [address] Phone Support Name Relationship Address Phone Giovany Guevara Primary Care Provider [address] [place] [address] ParentCarolyn Attending Provider [address] [place] [address] Allergies, Adverse Reactions, Alerts No known allergies. Medications Medication Status Dose Units Route Sig Qty Days Start Date End Date Instructions Gabapentin Active 600 MG Oral Every Day At Bedtime November 02, 2019 6:34pm Gabapentin Active 300 MG Oral Twice A Day November 02, 2019 6:34pm Quetiapine Active 50 MG Oral Every Day At Bedtime November 02, 2019 6:34pm Varenicline Active 1 TAB Oral Daily Augus 2019 6:34pm L Norgest/E.Estr adiol-E.Estrad Active 1 TAB Oral Daily November 02, 2019 6:34pm Problems No problem information available. Procedures Procedure Date Performed Status Diagnostic Laparoscopy (Not Applicable) October 282019 10:15am completed Relevant Diagnostic Tests and/or Laboratory Data Laboratory Results Test Date/Time Result Interpretation Reference Range Result Comment Performing Site POC Urine HCG Quantitative November 17, 2019 8:48am Negative Negative [facility], [place] [address] Coronavirus (PCR) November 15, 2019 9:03am Neg NEG This result is a copy from [facility].Please note: The clinical performance characteristics of COVID-19 PCR tests are still being defined. Therefore, a negative test does not exclude COVID-19 infection, and clinical diagnosis should not be made based solely on results from COVID-19 PCR testing. More information on use and interpretation of COVID-19 PCR testing is available on coronavirus central on the [facility] portal. Test performed: [facility] - [id number] [place] [address] Dr. Mannie Sorensen MD PhD, MSCLIA [id number]. CAP [id number]: [phone] [facility], [facility] [address] Advance Directives Advance Directive Response Recorded Date/ Time Does the patient have a Healthcare Proxy? No November 17, 2019 10:49am Date Patient Queried 11/17/19October 10:49am Healthcare Proxy Status Unable to Give October 282019 10:49am Chief Complaint and Reason for Visit Chief Complaint pre procedure covid surgery ENDOMETRIOSIS, PELVIC PAIN, DYSMENORRHEA Encounters Encounter Location(s) Arrival/Admit Date Discharge/Depart Date Provider(s) Departed Clinical [facility] Preop Testing November 15, 2019 6:58am November 15, 2019 6:59am Carolyn Abdi DO Departed Surgical Day Care [facility] Fur Dresser [facility] November 17, 2019 10:48am November 17, 2019 2:30pm Carolyn Abdi DO Assessments No Assessments Information Available Functional Status No Functional Status information available Goals Goals may be documented in an alternate section. Mental Status No Mental Status Information Available Medical Equipment No Medical Equipment Information available Insurance Providers Guarantor Sunita Riggs Address [address] [place] [address] Contact Info. Home Phone: Payer Policy Id Coverage Id Subscriber's Name Subscriber Id Effective Date Expiration Date Self Pay Self N/A [facility] Medicaid [id number] Sunita Riggs [id number] [facility] ACO Plan of Treatment Future Tests Future scheduled test information is unavailable Pending Tests Pending diagnostic test information is unavailable Future Visits Future appointment information is unavailable Referrals to Other Providers Reason for Referral Referral Start Date Provider Provider Contact Information Provider Address Giovany Guevara Work Alexa ne: [address] [place] [address] Future Procedures Future procedure information is unavailable [...]
--- OUTSIDE RECORDS SUMMARY | 2022-11-14 11:42 | XMS_ITS | Continuity of Care Document ---
Author Name Unknown Organization [facility] Address [address] [place] [address]- Care Team Providers Care Mortgage Lender Name Role Phone Ismael RAMIREZ, [facility] Primary Care Physician En[place] [facility] [place] Date[place] 05/12/19 - 05/12/[address] [address]- [facility] Attending Physician: Jw Perla MD Allergies, Adverse Reactions, [...]
--- OUTSIDE RECORDS SUMMARY | 2022-11-14 11:42 | XMS_ITS | Continuity of Care Document ---
Author Name Unknown Organization [facility] Niall Address [address] [place] [address]- Care Team Providers Care Heat Engineering Teacher Name Role Phone Juan NAVA, Karla Villar Primary Care Physician [phone] [place] [facility] [place]14[place]22 - 01/21/22 [facility] Adult [address] [place] [address]- Encounter Diagnosis Anxiety(Discharge Diagnosis) - 01/14/22 Insomnia(Discharge Diagnosis) - 01/14/22 Tobacco use(Discharge Diagnosis) - 01/14/22 Persistent asthma without complication(Discharge Diagnosis) - 01/14/22 Generalized muscle ache(Discharge Diagnosis) - 01/14/22 Arm pain(Discharge Diagnosis) - 01/14/22 Chronic pelvic pain in female(Discharge Diagnosis) - 01/14/22 Attending Physician: Mike Vigil MD Referring Physician: Karla Martinez NP Allergies, [...] PO QD Start Date: 7/23/20 Status: Ordered baclofen 10 mg oral tablet [...] Acute 03/02/22 8:57:00 EST, 12/08/21 8:55:00 EDT, [facility] #[id number], [place]... Start Date: 12/08/21 Stop Date: 03/02/22 Status: Ordered Flovent HFA 110 mcg/inh inhalation aerosol 2 puffs, Inhalation, 2 times a day, # 12 Gm, 3 Refills, Maintenance, 12/08/21 8:29:00 EDT, Aerosol,[facility] #[id number], Partial fill upon patient request if the prescription is for a schedule II opioid drug., 160, cm, 12/08/21 8:11:00 EDT, He... Start Date: 12/08/21 Status: Ordered ProAir HFA 90 mcg/inh inhalation aerosol 2 puffs, Inhalation, Every 4 hours, PRN NEEDED FOR WHEEZING, # 18 Gm, 5 Refills, [facility] #[id number], 16, INHALE 2 PUFFS BY MOUTH EVERY 4 HOURS NEEDED FOR WHEEZING, 160, cm, 09/10/20 12:00:00 EDT, Height Start Date: 04/06/21 Status: Ordered QUEtiapine 50 mg oral tablet 1 tablet = 50 mg, By Mouth, Daily, for 30 days, # 30 tablet, 6 Refills, Physician Stop 07/06/22 8:35:00 EDT, 12/08/21 8:35:00 EDT, [facility] #[id number], 160, cm, 12/08/21 8:11:00 EDT, Height Start [...] Active Persistent asthma without complication Confirmed Active IC (interstitial cystitis) Confirmed Active Chronic pelvic pain in female Confirmed Active Daytime somnolence Confirmed Active Endometriosis Confirmed Active Chronic fatigue Confirmed Active Insomnia Confirmed Active Mood disorder Confirmed Active Generalized muscle ache Confirmed Active Obese class I Confirmed Active Acne rosacea Confirmed Active Tobacco use Confirmed Active Diagnosis Diagnosis Type Effective Dates Health Status Clinical Service Informant Anxiety Discharge Diagnosis 01/14/22 Insomnia Discharge Diagnosis 01/14/22 Tobacco use Discharge Diagnosis 01/14/22 Persistent asthma without complication Discharge Diagnosis 01/14/22 Generalized muscle ache Discharge Diagnosis 01/14/22 Arm pain Discharge Diagnosis 01/14/22 Chronic pelvic pain in female Discharge Diagnosis 01/14/22 Vital Signs Most recent to oldest [Reference Range]: 1 Height 160 cm (01/14/22 8:04 AM) Weight 82.6 kg (01/14/22 8:04 AM) Oxygen Saturation [94-100 %] 99 % (01/14/22 8:04 AM) Pulse Rate [55-90 bpm] 95 bpm *H* (01/14/22 8:04 AM) Body Mass Index [18.5-24.99 kg/m2] 32.27 kg/m2 *>HHI* (01/14/22 8:04 AM) Blood Pressure [90-138/55-84 mm Hg] 102/ 69mm Hg (01/14/22 8:04 AM) Blood pressure sites Arm, right (01/14/22 8:04 AM) Weight Obtained Via Standing scale (01/14/22 8:04 AM) Social History Social History Type Response Smoking Status 10 or more cigarette s (1/2 pack or more)/day in last 30 days; Other: From 13 years; entered on: 12/09/18 Sex Patient Care team information Personnel Name: Karla Martinez NP Address: Address: [address] [place] [id number]
== END 2022-11-14 12:12 | disposition home or self-care (01) ==
PROVIDERS: Emergency Provider Emergency Medicine
DX: H60.92 Unspecified otitis externa, left ear (principal)
CPT/HCPCS: 99282; 99283

== ENCOUNTER 2022-11-15 13:49 | Emergency (ER) | payer OTHER, SELFPAY ==
[2022-11-15 14:24] VITALS: BP 141/63; PULSE 116; RESP 18; TEMP 37.1; O2SAT 93; BMI 32.3
--- NOTE | 2022-11-15 14:35 | ED_ITS ---
HPI - General Adult General Chief complaint: Ear Problems Stated complaint: ear problems Time Seen by Provider: 11/15/22 15:45 Source: patient Mode of arrival: ambulatory Limitations: no limitations History of Present Illness HPI narrative: Patient is a 32-year-old female presenting to the emergency department for evaluation of left ear. Patient was seen in this ED yesterday and had ear wick placed and was prescribed Cipro drops. Patient states this morning she was unable to visualize the wick and is unsure if it fell out or moved further into her ear canal. She also reports that when she initially picked up her ear drops from the pharmacy she believed that the instructions said to instill 5 drops per falls into her ear which she did. She then called the pharmacy to clarify and was told it is 5 drops. Patient unsure if she has sufficient amount of antibiotics to complete full course of treatment. Denies worsening pain or fevers. complaint: ?fb left ear Onset (ago): hour(s) Location: head Associated symptoms: denies other symptoms Treatments prior to arrival: other (cipro drops) Related Data Previous Rx's Medication Instructions Recorded ciprofloxacin 0.2 %-hydrocortisone 5 drp otic (ears) QID 7 days #10 mL 11/14/22 1 % ear drops,suspension ciprofloxacin 0.2 %-hydrocortisone 5 drp otic (ear) left BID 7 days 11/15/22 1 % ear drops,suspension #10 mL Allergies Allergy/AdvReac Type Severity Reaction Status Date / Time No Known Allergies Allergy Unverified 12/14/19 16:24 Review of Systems Review of Systems: As per HPI. Yes all other systems are reviewed and are negative Constitutional: Constitutional: Reports as per HPI [facility] Past Medical History Medical History (Updated 11/15/22 @ 17:34 by Pilar Ibanez NP) No known health problems Social History Social History Advance Directives: No Advance Directives Information Provided: No Physical Exam ED Vital Signs: Vital Signs - 24 hr 11/15/22 14:24 Temperature 98.7 F Pulse Rate 116 H Respiratory Rate 18 Blood Pressure 141/63 H Pulse Oximetry 93 Oxygen Delivery Method Room Air BMI result Body Mass Index 32.3 Vital signs have been reviewed and appear to be correct. Blood pressure mildly elevated. Heart rate slightly tachycardic, likely secondary to anxiety. Respiratory rate normal. Temperature normal. Oxygen saturation normal. Const General: cooperative, healthy appearing and no acute distress Orientation/consciousness: oriented to person, oriented to place, oriented to time and patient oriented x3 Limitations: no limitations HENMT Head: Yes normocephalic and Yes atraumatic Ears: external ears normal, mastoids normal bilaterally, no periauricular adenopathy and Abnormal EAC present cerumen impaction on the right, edema on the left, EAC tenderness on the left and otic discharge purulent on the left General nose exam: Normal external nose present Face and sinus: Yes face symmetric Mouth: oropharynx normal and moist mucous membranes Throat: Yes uvula midline Eyes Pupils: Equal, round and reactive pupils present Neck Neck: Yes normal visual inspection and Yes supple Resp Effort & Inspection: normal respiratory effort and able to speak in complete sentences Auscultation: clear to auscultation bilaterally Cardio Rate: regular rate Rhythm: regular rhythm Heart sounds: S1 normal heart sound present and S2 normal heart sound present GI Palpation (GI): Soft to palpation and nontender Auscultation: normoactive bowel sounds General: Yes no CVA tenderness Back/Spine/Pelvis Back: no CVA tenderness Skin General skin exam: elasticity normal and turgor normal Neuro General: oriented to person, oriented to place, oriented to time, patient oriented x3, moves all extremities, no focal motor deficits and CN's II-XI intact bilaterally Cranial nerves: Yes Equal, round and reactive pupils present Cognition (Neuro): normal cognition Extrem General: Yes full ROM, Yes no pedal edema and Yes no calf tenderness Psych Mental Status: mental status grossly normal Affect: normal affect Thought process: Normal thought process present Course Course Course Narrative: RME: 32 yold female presents to the ED for re-evaliation of left ear. patient thinks ear wick went deeper into her ear. patient states she saw it this morning and now does not see the ear wick. Ear exam negative for wick and shows discharge in ear canal that is swollen. Patient informed ear wick fell out on its own, and could be discharged but patient refused and will like to be seen in [facility]. Medical Decision Making Medical Decision Making MDM Narrative: Patient is a 32-year-old female presenting to the emergency department for evaluation of left ear after having wick placed yesterday. On exam patient is awake, A+Ox3, VS WNL, afebrile, normal neurological exam without focal deficits, slight improvement in left EAC edema since yesterday, purulent discharge still present, no wick visible. Given reported symptoms and physical exam findings, initial differential includes foreign body left ear, otitis externa. New wick placed. Will prescribe additional bottle of Cipro drops as patient feels she has insufficient amount to complete treatment. Return precautions again discussed with patient. Instructed patient to follow-up with primary care provider. Patient verbalized understanding of an agreement with plan. Differential Diagnosis Differential Diagnoses: The differential diagnosis associated with the presentation includes As per [facility] External Record Review External record reviewed: Inpatient record, Office record and Outpatient record Prescription Management I considered prescription management with: Antibiotic Discharge Plan Discharge Clinical Impression: Otitis externa Qualifiers: Chronicity: acute Laterality: left Patient Disposition: Home, Self-Care Instructions: Otitis Externa (DC) Prescriptions: New ciprofloxacin-hydrocortisone 0.2-1 % drops,suspension 5 drp otic (ear) left BID 7 Days Qty: 10 0RF Rx Instructions: Use if insufficient supply of first bottle No Action ciprofloxacin-hydrocortisone 0.2-1 % drops,suspension 5 drp otic (ears) QID 7 Days Qty: 10 0RF Interventions: ED Discharge Assessment Last Done: 11/15/22 17:38 Discharge Date/Time: 11/15/22 17:38
== END 2022-11-15 17:38 | disposition home or self-care (01) ==
PROVIDERS: Emergency Provider Internal Medicine
DX: H60.92 Unspecified otitis externa, left ear (principal); H92.02 Otalgia, left ear
CPT/HCPCS: 99282

== ENCOUNTER 2022-11-17 11:07 | Emergency (ER) | payer OTHER, SELFPAY ==
--- NOTE | 2022-11-17 11:16 | ED_ITS ---
HPI - Ear Problem General Chief complaint: Ear Problems Stated complaint: ear wick in l ear removal Time Seen by Provider: 11/17/22 11:43 Source: patient Mode of arrival: ambulatory Limitations: no limitations History of Present Illness HPI Narrative: Patient is a 32-year-old female presenting to the emergency department with request to remove ear wick from left ear which was placed in this emergency department on 11/15. Reports pain has slightly improved. Is continuing to use ear drops as prescribed. Denies fevers or any other new complaints. Reports ongoing discharge from left ear. MD Complaint: ear discharge and foreign body Location: left ear Duration: constant Relieving factors: ear drops Discharge from ear: yes - purulent Associated symptoms ear: ear swelling Treatment prior to arrival: eardrops Related Data Previous Rx's Medication Instructions Recorded ciprofloxacin 0.2 %-hydrocortisone 5 drp otic (ears) QID 7 days #10 mL 11/14/22 1 % ear drops,suspension ciprofloxacin 0.2 %-hydrocortisone 5 drp otic (ear) left BID 7 days 11/15/22 1 % ear drops,suspension #10 mL Allergies Allergy/AdvReac Type Severity Reaction Status Date / Time No Known Allergies Allergy Unverified 12/14/19 16:24 Review of Systems Review of Systems: As per HPI Yes Unobtainable due to mental status Constitutional: Constitutional: Reports as per HPI [facility] Past Medical History Medical History (Updated 11/17/22 @ 12:44 by Pilar Ibanez NP) No known health problems Social History Social History Advance Directives: No Physical Exam Vital Signs: Vital Signs: Last Vital Signs Temp 98 F 11/17/22 11:17 Pulse 97 11/17/22 11:17 Resp 19 11/17/22 11:17 BP 141/91 H 11/17/22 11:17 Pulse Ox 98 11/17/22 11:17 O2 Del Method Room Air 11/17/22 11:17 BMI result Body Mass Index 32.3 Vital signs have been reviewed and appear to be correct. Blood pressure elevated. Heart rate normal. Respiratory rate normal. Temperature normal. Oxygen saturation normal. Const: General: cooperative, healthy appearing and no acute distress Orientation/consciousness: oriented to person, oriented to place, oriented to time and patient oriented x3 Limitations: no limitations HEENT: Other: Edema to left EAC improved since 11/15, still unable to visualize TM. Left ear irrigated in the ED. Ear wick removed by provider in triage. No mastoid tenderness. Head: Yes normocephalic and Yes atraumatic Ears: hearing grossly normal bilaterally, external ears normal, mastoids normal and Abnormal EAC present excessive cerumen on the right, edema on the left and otic discharge purulent on the left General nose exam: Normal external nose present Face and sinus: Yes face symmetric Mouth: oropharynx normal and moist mucous membranes Throat: Yes uvula midline Eyes: Pupils: Equal, round and reactive pupils present Neck: Neck: Yes normal visual inspection and Yes supple Resp: Effort & Inspection: normal respiratory effort and able to speak in complete sentences Auscultation: clear to auscultation bilaterally Cardio: Rate: regular rate Rhythm: regular rhythm Heart sounds: S1 normal heart sound present and S2 normal heart sound present GI: Palpation (GI): Soft to palpation and nontender Auscultation: normoactive bowel sounds : General: Yes no CVA tenderness Back/Spine/Pelvis: Back: no CVA tenderness Skin: General skin exam: elasticity normal and turgor normal Neuro: General: oriented to person, oriented to place, oriented to time, patient oriented x3, moves all extremities, no focal motor deficits and CN's II- XI intact bilaterally Cranial nerves: Yes Equal, round and reactive pupils present Cognition (Neuro): normal cognition Extrem: General: Yes full ROM, Yes no pedal edema and Yes no calf tenderness Psych: Mental Status: mental status grossly normal Affect: normal affect Thought process: Normal thought process present Course Course Course Narrative: RME: 32-year-old female with a medical history of otitis externa s/p ear wick placement or ED on 11/14 and 11/15 presenting to the ED for re-evaluation admits has been persistently using drops, reports continued pain, denies fever/chills, mastoid tenderness. Admits to drainage however feels it is the drops Ear wick in place, removed in triage, copious amounts of external canal dischar ge noted, unable to visualize TM, no mastoid tenderness Ear should be irrigated for better visualization, believe medicine wasn't actually getting in ear Full HPI, ROS and PE to be performed by primary ED provider. Medical Decision Making Medical Decision Making MDM Narrative: Patient is a 32-year-old female presenting to the emergency department with request to remove ear wick from left ear which was placed in this emergency department on 11/15. On exam patient is awake, A+Ox3, VS WNL, afebrile, normal neurological exam without focal deficits, left EAC edema noted to have improved since 11/15, as patient seen by this provider on both prior recent visits, continued purulent drainage removed with irrigation, ear wick removed by provider in triage, no mastoid tenderness. Given reported symptoms and physical exam findings, initial differential includes foreign body left ear, otitis externa. Discussed with patient that she should continue with ear drops as previously prescribed. Referred patient to Dr. Chappell for further management of symptoms. Return precautions discussed at bedside. Patient and mother verbalized understanding of and agreement with plan. Differential Diagnosis Differential Diagnoses: The differential diagnosis associated with the presentation includes As per [facility] Independent Historian Clinical information obtained from an independent historian. History obtained from or confirmed by: Parent (mother) External Record Review External record reviewed: Inpatient record, Office record and Outpatient record Discharge Plan Discharge Clinical Impression: Ear pain, left Patient Disposition: Home, Self-Care Additional Instructions: You were evaluated in the emergency department today for removal of ear wick from your left ear. Your ear was also irrigated in the emergency department today. Your otitis externa, also known as external ear infection, is improving. Please contact the Dr. Chappell at the ENT office for a follow up appointment to ensure ear is healing appropriately. Return to the emergency department if you develop worsening ear pain, swelling, increased drainage from your ear, fever 100.4? F or greater, difficulty opening her jaw, or any other concerning symptoms. Prescriptions: No Action ciprofloxacin-hydrocortisone 0.2-1 % drops,suspension 5 drp otic (ears) QID 7 Days Qty: 10 0RF ciprofloxacin-hydrocortisone 0.2-1 % drops,suspension 5 drp otic (ear) left BID 7 Days Qty: 10 0RF Rx Instructions: Use if insufficient supply of first bottle Referrals: Mustapha Collins [Physician] -
[2022-11-17 11:17] VITALS: BP 141/91; PULSE 97; RESP 19; TEMP 36.6; O2SAT 98; BMI 32.3
== END 2022-11-17 12:48 | disposition home or self-care (01) ==
PROVIDERS: Emergency Provider Emergency Medicine; PCP Nurse Practitioner Family
DX: H92.02 Otalgia, left ear (principal)
CPT/HCPCS: 99282

== ENCOUNTER 2023-11-03 13:57 | Emergency (ER) | payer OTHER, SELFPAY ==
[2023-11-03 14:08] VITALS: BP 144/84; PULSE 94; RESP 19; TEMP 36.6; O2SAT 98; BMI 36.9
--- NOTE | 2023-11-03 15:29 | ED_ITS ---
<Statement entered by Kushal Hugo DO - 11/03/23 20:23> Please send to Dr. Antonio HPI - General Adult General Chief complaint: General Medical Stated complaint: candy stuck in nose ? Related Data Previous Rx's ?Medication ?Instructions ?Recorded ciprofloxacin 0.2 %-hydrocortisone 5 drp otic (ears) QID 7 days #10 mL 11/14/22 1 % ear drops,suspension ciprofloxacin 0.2 %-hydrocortisone 5 drp otic (ear) left BID 7 days 11/15/22 1 % ear drops,suspension #10 mL Allergies Allergy/AdvReac Type Severity Reaction Status Date / Time No Known Allergies Allergy Verified 11/03/23 14:09 [facility] Past Medical History Medical History (Updated 11/03/23 @ 20:24 by Kushal Hugo DO) No known health problems Social History Social History Advance Directives: No Advance Directives Information Provided: No Physical Exam ED Vital Signs: Vital Signs - 24 hr 11/03/23 14:08 Temperature 98 F Pulse Rate 94 Respiratory Rate 19 Blood Pressure 144/84 H Pulse Oximetry 98 Oxygen Delivery Method Room Air BMI result Body Mass Index 36.9 Discharge Plan Discharge Clinical Impression: Left against medical advice Patient Disposition: Left W/O Completing Treatment Prescriptions: No Action ciprofloxacin-hydrocortisone 0.2-1 % drops,suspension 5 drp otic (ears) QID 7 Days Qty: 10 0RF ciprofloxacin-hydrocortisone 0.2-1 % drops,suspension 5 drp otic (ear) left BID 7 Days Qty: 10 0RF Rx Instructions: Use if insufficient supply of first bottle Discharge Date/Time: 11/03/23 19:55
--- OUTSIDE RECORDS SUMMARY | 2023-11-03 19:36 | XMS_ITS | Continuity of Care Document ---
Author Organization [facility] lt Address [address] [place] [address]- Care Team Providers Care Deputy Director Of Public Works Name Role Phone Juan NAVA, Karla Villar Primary Care Physician [phone] [place] [facility] Date(s): 10/22/22 - 11/21/22 [facility] [address] [place] [address]- Allergies, Adverse Reactions, Alerts No Known Allergies [...] Every 6 hours, # 1 each, Refills 5, Tot. Refills 5, Maintenance, 10/22/22 12:53:00 EDT, Route to Pharmacy Electronically, NCPDP_ID- [id number], [facility] #[id number], 163, cm,10/19/22 10:17:00 EDT, Height Start Date: 10/22/22 Stop Date: 04/20/23 Status: Ordered baclofen 20 mg oral tablet 20 mg, 1, tablet, By Mouth, 3 times a day, Refills 0, Maintenance, 11/07/22 14:23:00 EST, Partial fill upon patient request if the prescription is for a schedule II opioid drug. Start Date: 02/02/22 Status: Ordered cloNIDine 0.1 mg oral tablet 0.1 mg, 1, tablet, By Mouth, 3 times a day, PRN, # 90 tablet, Refills 0, Tot. Refills 0, Maintenance, Anxiety, 10/19/22 10:07:00 EDT, Route to Pharmacy Electronically, [facility] #[id number], Partial fill upon patient request if the prescription... Start Date: 10/19/22 Status: Ordered Flovent HFA 110 mcg/inh inhalation aerosol 2 puffs, Inhalation, 2 times a day, # 12 Gm, 0 Refills, Maintenance, 09/21/22 9:29:00 EDT, [facility] #[id number], 160, cm, 08/13/22 14:08:00 EDT, Height Start Date: 09/21/22 Status: Ordered OXcarbazepine 600 mg oral tablet 1 tablet = 600 mg, By Mouth, 2 times a day, Increased dose, # 180 tablet, 1 Refills, Maintenance, 11/03/22 21:07:00 EDT, Tablet, [facility] #[id number], Partial fill upon patient request if the prescription is for a schedule II opioid drug., 163,... Start Date: 11/03/22 Status: Ordered QUEtiapine 25 mg oral tablet 25 mg, 1, tablet, By Mouth, Daily at bedtime, # 90 tablet, Refills 3, Tot. Refills 3, Maintenance, 10/19/22 10:13:00 EDT, Route to Pharmacy Electronically, [facility] #[id number], Partial fill upon patient request if the prescription is for a jayson... Start Date: 10/19/22 Status: Ordered RisperDAL 1 mg oral tablet 1 mg, 1, tablet, By Mouth, 2 times a day, # 60 tablet, Refills 0, Tot. Refills 0, Maintenance, 11/16/22 10:19:00 EDT, Route to Pharmacy Electronically, [facility] #[id number], Partial fill upon patient request if the prescription is for a schedul... Start Date: 11/16/22 Status: Ordered Valium 10 mg oral tablet [...] AM, # 30 capsule, 0 Refills, Maintenance, 11/16/22 10:20:00 EDT, Capsule, [facility] #[id number], Partial fill upon patient request if the prescription is for a schedule II opioid drug., 1 capsule By Mouth Da... Start Date: 11/16/22 Status: Ordered ZyPREXA Zydis 5 mg oral tablet, disintegrating 1 tablet = 5 mg, By Mouth, Daily, PRN Agitation, # 30 tablet, 1 Refills, Maintenance, 10/21/22 7:10:00 EDT, DIS Tablet, [facility] #[id number], Partial fill upon patient request if the prescription is for a schedule II opioid drug., 163, cm, 09/27... Start Date: 10/21/22 Status: Ordered Problem List Condition Confirmation Course Effective Dates Status H ealth Status Informant Anxiety Confirmed Active Persistent asthma without complication Confirmed Active Asthma Confirmed Active ADHD (attention deficit hyperactivity disorder), inattentive type Confirmed Active Bipolar disorder, current episode depressed, [...] Care team information Care Team Personnel Name: Juan NAVA, Karla Villar Position: [facility] PCO Associate Professional Member Role: PCP Address: Address: [address] [place] [id number]- Name: Tawny Nicole [place] Position: [facility] RN Member Role: Primary Care Nurse Care Team Related Persons Name: ELAERNESTO Address: home [address] [place] [id number] Name: HUGO VAZQUEZ Address: home [address] [place] [address] Name: THIAGO VAZQUEZ Address: home [address] [place] [id number]
--- OUTSIDE RECORDS SUMMARY | 2023-11-03 19:37 | XMS_ITS ---
Author Organization Sandra Koch MD Address [address] [place] [id number] Care Team Providers Care Safety And Security Manager Name Role Phone Dina Liberty Primary Care Provider [phone] Allergies No Known Allergies REASON FOR VISIT refills Medications Medication SIG (Take, Route, Frequency, Duration) Notes Start Date End Date Status risperiDONE 3 MG TAKE 1 TABLET BY VIRAL TH DAILY Orally Once a day for 30 days Active QUEtiapine Fumarate 25 MG TAKE 1 TABLET BY MOUTH DAILY AT BEDTIME Oral Once a day for 30 days Active Encounters Encounter Location Date Provider Diagnosis Sandra Koch MD [address] [phone] 07/16/2023 Liberty Arroyo Bipolar disorder, current episode mixed, moderate F31.62 Assessments Encounter Date Diagnosis (ICD Code) Assessment Notes Treatment Notes Treatment Clinical Notes 07/16/2023 Bipolar disorder, current episode mixed, moderate (ICD-10 - F31.62) Plan Of Treatment Medication Medication Name Sig Start Date Stop Date Notes risperiDONE 3 MG TAKE 1 TABLET BY VIRAL TH DAILY Orally Once a day for 30 days QUEtiapine Fumarate 25 MG TAKE 1 TABLET BY MOUTH DAILY AT BEDTIME Oral Once a day for 30 days Next Appt Details Provider Name:Liberty Arroyo , 11/08/2023 10:30:00 AM, [address] [place] [address], [phone], Provider Name:Liberty Arroyo , 03/15/2024 10:30:00 AM, [address] [place] [address], [phone], Progress Notes * Tammy VAZQUEZB:1990 (33 yo F)Acc No.[id number]:07/16/2023 Patient:?Sunita VAZQUEZ :1990???Age:33 Y???Sex:Female Address:[address] [place] [id number] * Refills? Refill QUEtiapine Fumarate Tablet, 25 MG, Oral, 30, TAKE 1 TABLET BY MOUTH DAILY AT BEDTIME, Once a day, 30 days, Refills=0 Refill risperiDONE Tablet, 3 MG, Orally, 30, TAKE 1 TABLET BY MOUTH DAILY, Once a day, 30 days, Refills=0 Subjective: * Chief Complaints: * ???Refills * Medical History:? * Surgical History:? * Hospitalization/Major Diagno stic Procedure:? * Medications:? * Allergies:?N.K.D.A.no[Allerg ies Verified] Objective: * Vitals:? * Physical Examination:? Assessment: * Assessment: 1.?Bipolar disorder, current episode mixed, moderate - F31.62? Plan: * Treatment: * Procedure Codes:? * true * Date:? Generated for Anabel gupta/Mando/Milo on:?11/03/2023 07:37 PM EDT
--- OUTSIDE RECORDS SUMMARY | 2023-11-03 19:37 | XMS_ITS | Continuity of Care Document ---
Author Organization [facility] Address [address] [phone]- Care Team Providers Care Barrel Centerer Name Role Phone Juan NAVA, Karla Villar Primary Care Physician Encounter [facility] Date(s): 11/16/22 - 12/16/22 [facility] [address] [place] [address]- [place] Allergies, Adverse Reactions, Alerts No Known Allergies [...] 12:53:00 EDT, Route to Pharmacy Electronically, NCPDP_ID- [id number], [facility] #[id number], 163, cm,10/19/22 10:17:00 EDT, Height Start Date: [...] a day, PRN, # 90 tablet, Refills 3, Tot. Refills 3, Maintenance, Anxiety, 12/01/22 11:10:00 EDT, Route to Pharmacy Electronically, [facility] #[id number], Partial fill upon patient request if the prescription... Start Date: 12/01/22 Status: Ordered Flovent HFA 110 mcg/inh inhalation aerosol 2 puffs, Inhalation, 2 times a day, # 12 Gm, 0 Refills, Maintenance, 09/21/22 9:29:00 EDT, [facility] #[id number], 160, cm, 08/13/22 14:08:00 EDT, Height Start Date: 09/21/22 Status: Ordered OXcarbazepine 600 mg oral tablet 1 tablet = 600 mg, By Mouth, 2 times a day, Increased dose, # 60 tablet, 3 Refills, Maintenance, 12/15/22 17:15:00 EDT, Tablet, [facility] #[id number], Partial fill upon patient request if the prescription is for a schedule II opioid drug., 163,... Start Date: 12/15/22 Status: Ordered RisperDAL 3 mg oral tablet 3 mg, 1, tablet, By Mouth, Daily, Fill when ready and patient requests., # 30 tablet, Refills 2, Tot. Refills 2, Maintenance, 12/15/22 17:12:00 EDT, Route to Pharmacy Electronically, [facility] #[id number], Partial fill upon patient request if th... Start Date: 12/15/22 Status: Ordered SEROquel 25 mg oral tablet 25 mg, 1, tablet, By Mouth, Daily at bedtime, PRN, Fill when patient requests., # 30 tablet, Refills 0, Tot. Refills 0, Maintenance, Sleep, 12/15/22 17:13:00 EDT, Route to Pharmacy Electronically, [facility] #[id number], Partial fill upon patient... Start Date: 12/15/22 Status: Ordered Trileptal 300 mg oral tablet 300 mg, 1, tablet, By Mouth, 2 times a day, Take with other script to equal 1800 mg's daily. Fill when patient requests., # 60 tablet, Refills 3, Tot. Refills 3, Maintenance, 12/15/22 17:17:00 EDT, Route to Pharmacy Electronically, [facility]... Start Date: 12/15/22 Status: Ordered Valium 10 mg oral tablet See Instructions, PRN, 1 tablet By Mouth 2 times a day PRN inserted vaginally for vaginal wall spasm., Refills 0, Maintenance, Spasm, 12/08/21 8:33:00 EDT, Instructions Replace Required Details, Partial fill upon patient request if the prescription is... Start Date: 12/08/21 Status: Ordered ZyPREXA Zydis 5 mg oral tablet, disintegrating 1 tablet = 5 mg, By Mouth, Daily, PRN Agitation, Fill when patient requests, # 30 tablet, 3 Refills, Maintenance, 12/15/22 17:21:00 EDT, DIS Tablet, [facility] #[id number], Partial fill upon patient request if the prescription is for a schedule I... Start Date: 12/15/22 Status: Ordered Problem List Condition Confirmation Course [...] Personnel Name: Juan NAVA, Karla Villar Position: [facility] PCO Associate Professional Member Role: PCP Address: Address: [address] [place] [id number] Name: Tawny Nicole [place] Position: [facility] RN Member Role: Primary Care Nurse Care Team Related Persons Name: ERNESTO MAHMOOD Address: [address] [address] Name: HUGO VAZQUEZ Address: home [address] [place] [id number] Name: THIAGO VAZQUEZ Address: [address] [address]
--- OUTSIDE RECORDS SUMMARY | 2023-11-03 19:37 | XMS_ITS | Patient Health Record ---
Author Organization Sandra Koch MD Address [address] [place] [id number] Care Team Providers Care End Polisher Name Role Phone Liberty Arroyo Primary Care Provider [phone] Allergies No Known Allergies Results Component Value Reference Range Notes COMPLETE URINALYSIS Reviewed date:01/01/2023 01:29:00 PM Interpretation: Performing Lab:Testing performed or reported by [facility], a Service of [facility], [address] [place] [address] Oneil Hardy MD, Size Tester CLIA# [id number] Notes/Report: APPEAR/COLOR LIGHT YELLOW CLEAR SP. GRAVITY 1.028 (1.002-1.030) URINE PH 6.0 (5.0-8.0) URINE ALBUMIN TRACE (NEG) URINE GLUCOSE NEGATIVE (NEG) URINE KETONES NEGATIVE (NEG) URINE BILIRUBIN NEGATIVE (NEG) URINE HEMOGLOBIN NEGATIVE (NEG) URINE NITRITE NEGATIVE (NEG) URINE LEUKOCYTE NEGATIVE (NEG) UROBILINOGEN NORMAL (NORM) MG/DL URINE WBCs 1 (0-5) /HPF URINE RBCs 1 (0-3) /HPF BACTERIA SLIGHT (NEG) HPF MUCUS SLIGHT SQUAMOUS EPITH 16 (0-8) /HPF Ultrasound : Abdomen Reviewed date:01/18/2023 10:01:10 PM Interpretation: Performing Lab: Notes/Report: HCV FIBROSURE Reviewed date:02/07/2023 07:38:52 AM Interpretation: Performing Lab:Testing performed or reported by [facility], a Service of [facility], [address] [place] [address] Oneil Hardy MD, Size Tester CLIA# [id number] Notes/Report: FIBROSIS SCORE 0.06 Reference ran ge: 0.00 to 0.21 FIBROSIS STAGE Comment (NOTE) F0 - No fibrosis NECROINFLAMM ACTIVITY SCORE 0.10 Reference range: 0.0 0 to 0.17 NECROINFLAMM ACTIVITY GRADE SEE COMMENT (NOTE) RESULT:A0-No activity ALPHA 2 MACROGLOBULINS QN(FIB) 272 Reference range: 110 to 276 Unit: mg/dL HAPTOGLOBIN(FIBROSURE) 169 Reference range: 33 to 278 Unit: mg/dL APOLIPOPROTEIN(FIBROSUR E) 165 Reference range: 116 to 209 Unit: mg/dL BILIRUBIN,TOTAL(FIBROSU RE) 0.1 Reference range: 0.0 to 1.2 Unit: mg/dL GGT(FIBROSURE) 61 Reference range: 0 to 60 Unit: IU/L ALT(SGPT)P5P(FIBROSURE) 28 Reference range: 0 to 40 Unit: IU/L HCV FIBROSURE INTERPRETATION Comment (NOTE) Quantitative results of 6 biochemical tests are analyzed using a computational algorithm to provide a quantitative surrogate marker (0.0-1.0) for liver fibrosis (METAVIR F0-F4) and for necroinflammatory activity (METAVIR A0-A3). FIBROSIS SCORING Comment (NOTE) < EQ 0.21 EQ Stage F0 - No fibrosis 0.21 - 0.27 EQ Stage F0 - F1 0.27 - 0.31 EQ Stage F1 - Portal fibrosis 0.31 - 0.48 EQ Stage F1 - F2 0.48 - 0.58 EQ Stage F2 - Bridging fibrosis with few septa 0.58 - 0.72 EQ Stage F3 - Bridging fibrosis with many septa 0.72 - 0.74 EQ Stage F3 - F4 >0.74 EQ Stage F4 - Cirrhosis NECROINFLAMM ACTIVITY SCORING Comment (NOTE) <0.17 EQ Grade A0 - No Activity 0.17 - 0.29 EQ Grade A0 - A1 0.29 - 0.36 EQ Grade A1 - Minimal activity 0.36 - 0.52 EQ Grade A1 - A2 0.52 - 0.60 EQ Grade A2 - Moderate activity 0.60 - 0.62 EQ Grade A2 - A3 >0.62 EQ Grade A3 - Severe activity FIBROSURE LIMITATIONS Comment (NOTE) The negative predictive value of a Fibrotest score <0.31 (absence of clinically significant fibrosis) was 85% when compared to liver biopsy in 1,270 HCV infected patients with a 38% prevalence of significant liver fibrosis (F2, 3 or 4). The positive predictive value of a Fibro-test score >0.48 (F2, 3, 4) was 61% in that same patient cohort. HCV FibroSURE is not recommended in patients with Gilbert Disease, acute hemolysis (e.g. HCV ribavirin therapy mediated hemolysis) acute hepa-titis of the liver, extra-hepatic cholestasis, transplant patients, and/or renal insufficiency patients. Any of these clinical situations may lead to inaccurate quantitative predictions of fibrosis and necroinflammatory activity in the liver. FIBROSURE COMMENT 1 Comment (NOTE) This test was developed and its performance characteristics determined by [facility]. It has not been cleared or approved by the Food and Drug Administration. The FDA has determined that such clearance or approval is not necessary. For questions regarding this report please contact customer service at . METHODOLOGY Comment (NOTE) The analytes tested are performed by [employer] methods. Not intended for use with other diagnostic considerations. [place] [address] GGTP Reviewed date:02/07/2023 07:38:52 AM Interpretation: Performing Lab:Testing performed or reported by [facility], a Service of [facility], [address] [place] [address] Oneil Hardy MD, Size Tester CLIA# [id number] Notes/Report: GGTP 62 (5-36) U/L CERULOPLASMIN Reviewed date:02/07/2023 07:38:52 AM Interpretation: Performing Lab:Testing performed or reported by [facility], a Service of [facility], [address] [place] [address] Oneil Hardy MD, Size Tester CLIA# [id number] Notes/Report: CERULOPLASMIN 29 (16-45) MG/DL ACUTE HEPATITIS PROFILE Reviewed date:02/07/2023 07:38:51 AM Interpretation: Performing Lab:Testing performed or reported by [facility], a Service of [facility], [address] [place], [place] [address] [address] Oneil Hardy MD, Size Tester CLIA# [id number] Notes/Report: HEP. B SURF. AG NEGATIVE (NEG) Reference range: Negative This test was performed on the [employer] immunoassay system. ANTI HEP. A IGM NEGATIVE (NEG) This test was performed on the [employer] immunoassay system. Reference range: Negative ANTI-HEPATITIS C NEGATIVE (NEG) Reference range: Negative This test was performed on the [employer] immunoassay system. HEP.B CORE IGM NEGATIVE Reference range: Negative This test was performed on the [employer] immunoassay system. COMPREHENSIVE METABOLIC PANE L Reviewed date:01/01/2023 01:29:00 PM Interpretation: Performing Lab:Testing performed or reported by [facility], a Service of [facility], [address] [place] [address] Oneil Hardy MD, Size Tester [facility]# [id number] Notes/Report: GLUCOSE 95 (70-99) MG/DL BUN 14 (6-20) MG/DL CREATININE 0.7 (0.5-1.0) MG/DL SODIUM 142 (133-145) MMOL/L POTASSIUM 4.7 (3.6-5.2) MMOL/L CHLORIDE 105 (98-107) MMOL/L BICARBONATE 24 (22-29) MMOL/L ANION GAP 13 (4-17) ALBUMIN 4.6 (3.4-4.8) GM/DL CALCIUM 10.1 (8.6-10.5) MG/DL BILIRUBIN,TOTAL <0.2 (0-1.2) MG/DL TOTAL PROTEIN 6.7 (6.2-8.2) GM/DL AG RATIO 2.2 AST 22 (0-32) U/L ALK PHOS 140 (35-104) U/L ALT 38 (0-33) U/L ESTIMATED GFR CREATININE 119 Creatinine based estimated glomerular filtration (eGFR) in adults is calculated using the National Kidney Foundation recommended 2020 CKD-EPI equation. Estimates GFR from serum creatinine, age and sex. VITAMIN B12 Reviewed date:01/01/2023 01:29:01 PM Interpretation: Performing Lab:Testing performed or reported by [facility], a Service of [facility], [address] [place] [address] Oneil Hardy MD, Size Tester [place]# [id number] Notes/Report: VITAMIN B12 461 (232-1245) pg/mL TSH WITH REFLEX TO FT4 Reviewed date:01/01/2023 01:29:01 PM Interpretation: Performing Lab:Testing performed or reported by [facility], a Service of [facility], [address] [place] [address] Oneil Hardy MD, Size Tester CLIA# [id number] Notes/Report: TSH 2.37 (0.4-4.2) uIU/mL LIPID PANEL Reviewed date:01/01/2023 01:29:00 PM Interpretation: Performing Lab:Testing performed or reported by [facility], a Service of [address] [address] Oneil Hardy MD, Size Tester [facility]# [id number] Notes/Report: CHOLESTEROL, TOTAL 206 (<200) MG/DL TRIGLYCERIDE 120 (<150) MG/DL HDL CHOL 65 (>39) MG/DL LDL CHOLESTEROL, CALCULATED 117 (0-130) MG/DL NON HDL CHOLESTEROL (CALC) 141 (<160) MG/DL COMPLETE CBC WITH DIFF Reviewed date:01/01/2023 01:29:01 PM Interpretation: Performing Lab:Testing performed or reported by [facility], a Service of [address] [address] Oneil Hardy MD, Size Tester [facility]# [id number] Notes/Report: WBC 6.9 (4.0-11.0) K/MM3 RBC 4.51 (4.20-5.40) M/MM3 HGB 13.8 (11.7-15.5) GM/DL HCT 42.4 (35.7-45.8) % MCV 94.0 (80.0-100.0) FL MCH 30.6 (27.0-34.0) PG MCHC 32.5 (33.0-37.0) g/dL PLT 485 (150-460) K/MM3 RDW-SD 45.5 (<47.0) FL MPV 9.3 (9.4-12.4) FL AUTOMATED NRBC 0.0 ABS. NRBC 0.0 NEUT # 4.3 (1.3-7.0) K/MM3 LYMPH # 1.7 (0.8-3.1) K/MM3 MONO# 0.5 (0.4-0.9) K/MM3 EO # 0.3 (0.0-0.4) K/MM3 BASO # 0.1 (0.0-0.1) K/MM3 ABS. IMM GRAN 0.0 NEUT 62.7 (44-76) % LYMPH 24.9 (15-43) % MONOCYTE 6.8 (4.5-10.5) % EO 4.6 (0-6) % BASO 0.7 (0-2) % IMM GRAN 0.3 25OH VITAMIN D Reviewed date:01/01/2023 01:29:00 PM Interpretation: Performing Lab:Testing performed or reported by [facility], a Service of [facility], [address] [place] [address] Oneil Hardy MD, Size Tester [facility]# [id number] Notes/Report: 25OH VITAMIN D 19.9 (20-50) NG/ML EKG Reviewed date:04/08/2023 08:10:35 AM Interpretation: Performing Lab: Notes/Report: ECGDiastolicBP 0 ECGDiastolicBP 0 ECGHr 64 ECGHr 75 ECGPRInterval 144 ECGPRInterval 170 ECGPWaveAxis 41 ECGPWaveAxis 44 ECGQRSDuration 100 ECGQRSDuration 96 ECGQrsWaveAxis 50 ECGQrsWaveAxis 38 ECGQTcInterval 419 ECGQTcInterval 422 ECGQTInterval 412 ECGQTInterval 396 ECGSystolicBP 0 ECGSystolicBP 0 ECGTWaveAxis 32 ECGTWaveAxis 30 RR_DiastolicBP 0 RR_DiastolicBP 0 RR_MaxRRInterval 0 RR_MaxRRInterval 0 RR_MeanHR 0 RR_MeanHR 0 RR_MeanRRInterval 0 RR_MeanRRInterval 0 RR_MinRRInterval 0 RR_MinRRInterval 0 RR_NumBeats 0 RR_NumBeats 0 RR_NumNormalBeats 0 RR_NumNormalBeats 0 RR_SystolicBP 0 RR_SystolicBP 0 EKG Reviewed date:04/08/2023 08:10:35 AM Interpretation: Performing Lab: Notes/Report: ECGDiastolicBP 0 ECGDiastolicBP 0 ECGHr 64 ECGHr 75 ECGPRInterval 144 ECGPRInterval 170 ECGPWaveAxis 41 ECGPWaveAxis 44 ECGQRSDuration 100 ECGQRSDuration 96 ECGQrsWaveAxis 50 ECGQrsWaveAxis 38 ECGQTcInterval 419 ECGQTcInterval 422 ECGQTInterval 412 ECGQTInterval 396 ECGSystolicBP 0 ECGSystolicBP 0 ECGTWaveAxis 32 ECGTWaveAxis 30 RR_DiastolicBP 0 RR_DiastolicBP 0 RR_MaxRRInterval 0 RR_MaxRRInterval 0 RR_MeanHR 0 RR_MeanHR 0 RR_MeanRRInterval 0 RR_MeanRRInterval 0 RR_MinRRInterval 0 RR_MinRRInterval 0 RR_NumBeats 0 RR_NumBeats 0 RR_NumNormalBeats 0 RR_NumNormalBeats 0 RR_SystolicBP 0 RR_SystolicBP 0 COMPLETE CBC WITH DIFF Reviewed date:05/09/2023 06:14:03 PM Interpretation: Performing Lab:Testing performed or reported by [facility], a Service of [facility], [address] [place] [address] Oneil Hardy MD, Size Tester [facility]# [id number] Notes/Report: WBC 6.2 (4.0-11.0) K/MM3 RBC 4.37 (4.20-5.40) M/MM3 HGB 14.0 (11.7-15.5) GM/DL HCT 42.3 (35.7-45.8) % MCV 96.8 (80.0-100.0) FL MCH 32.0 (27.0-34.0) PG MCHC 33.1 (33.0-37.0) g/dL PLT 392 (150-460) K/MM3 RDW-SD 44.5 (<47.0) FL MPV 9.6 (9.4-12.4) FL AUTOMATED NRBC 0.0 ABS. NRBC 0.0 NEUT # 3.3 (1.3-7.0) K/MM3 LYMPH # 2.3 (0.8-3.1) K/MM3 MONO# 0.4 (0.4-0.9) K/MM3 EO # 0.2 (0.0-0.4) K/MM3 BASO # 0.0 (0.0-0.1) K/MM3 ABS. IMM GRAN 0.0 NEUT 52.9 (44-76) % LYMPH 36.7 (15-43) % MONOCYTE 6.5 (4.5-10.5) % EO 2.8 (0-6) % BASO 0.6 (0-2) % IMM GRAN 0.5 COMPREHENSIVE METABOLIC PANE L Reviewed date:05/09/2023 06:14:03 PM Interpretation: Performing Lab:Testing performed or reported by [facility], a Service of [address] [address] Oneil Hardy MD, Size Tester [facility]# [id number] Notes/Report: GLUCOSE 114 (70-99) MG/DL BUN 18 (6-20) MG/DL CREATININE 0.6 (0.5-1.0) MG/DL SODIUM 140 (133-145) MMOL/L POTASSIUM 4.2 (3.6-5.2) MMOL/L CHLORIDE 105 (98-107) MMOL/L BICARBONATE 24 (22-29) MMOL/L ANION GAP 11 (4-17) ALBUMIN 4.4 (3.4-4.8) GM/DL CALCIUM 9.3 (8.6-10.5) MG/DL BILIRUBIN,TOTAL 0.2 (0-1.2) MG/DL TOTAL PROTEIN 6.5 (6.2-8.2) GM/DL AG RATIO 2.1 AST 20 (0-32) U/L ALK PHOS 137 (35-104) U/L ALT 28 (0-33) U/L ESTIMATED GFR CREATININE 122 Creatinine based estimated glomerular filtration (eGFR) in adults is calculated using the National Kidney Foundation recommended 2020 CKD-EPI equation. Estimates GFR from serum creatinine, age and sex. FERRITIN Reviewed date:05/09/2023 06:14:03 PM Interpretation: Performing Lab:Testing performed or reported by [facility], a Service of [address] [address] Oneil Hardy MD, Size Tester [facility]# [id number] Notes/Report: FERRITIN 169 (14-283) NG/ML IRON & TIBC Reviewed date:05/09/2023 06:14:03 PM Interpretation: Performing Lab:Testing performed or reported by [facility], a Service of [address] [address] Oneil Hardy MD, Size Tester [facility]# [id number] Notes/Report: IRON 94 (30-160) MCG/DL UNSATURATED IRON BINDING CAPAC 273 (110-370) MCG/DL EST T. IRON BIND CAPACITY 367 (140-530) MCG/DL % IRON SATURATION 26 (20-55) % PROBNP Reviewed date:05/09/2023 06:14:03 PM Interpretation: Performing Lab:Testing performed or reported by [facility], a Service of [facility], [address] [place] [address] Oneil Hardy MD, Size Tester [facility]# [id number] Notes/Report: PRO BNP 60 (1-125) PG/ML Foot Min 3 Views Right Reviewed date:06/18/2023 11:58:18 AM Interpretation: Performing Lab: Notes/Report: Examination: Right ankle and right foot performed 06/18/2023. History: Reason: pain in right ankle Findings: Frontal, oblique, and lateral views of the right ankle and frontal, oblique, and lateral views of the right foot are submitted. The mortise is preserved. No fractures or dislocations are demonstrated. A plantar calcaneal spur is present. Soft tissue swelling overlies the medial malleolus. IMPRESSION: Soft tissue swelling. There is no acute osseous abnormality. WSN: [id number] Ordering Physician: Liberty Arroyo Dictated By: Ann Elena MD Examination: Right ankle and right foot performed 06/18/2023. History: Reason: pain in right ankle Findings: Frontal, oblique, and lateral views of the right ankle and frontal, oblique, and lateral views of the right foot are submitted. The mortise is preserved. No fractures or dislocations are demonstrated. A plantar calcaneal spur is present. Soft tissue swelling overlies the medial malleolus. IMPRESSION: Soft tissue swelling. There is no acute osseous abnormality. WSN: [id number] Ordering Physician: Liberty Arroyo PDF Report Reviewed date:06/18/2023 11:58:19 AM Interpretation: Performing Lab:[facility], [address] [facility], Phone - [phone], Director - Ho Notes/Report: Uric Acid-[id number] Reviewed date:06/18/2023 11:58:18 AM Interpretation: Performing Lab:[facility], [address] [facility], [employer], Phone - [phone], Director - Ho Notes/Report: Uric Acid 3.9 2.6-6.2 mg/dL Therapeutic ta rget for gout patients: <6.0 Xray: Foot Right-Min 3 Vws Reviewed date:06/21/2023 09:03:31 AM Interpretation: Performing Lab: Notes/Report: Ankle Min 3 Views Right Reviewed date:06/18/2023 11:58:19 AM Interpretation: Performing Lab: Notes/Report: Examination: Right ankle and right foot performed 06/18/2023. History: Reason: pain in right ankle Findings: Frontal, oblique, and lateral views of the right ankle and frontal, oblique, and lateral views of the right foot are submitted. The mortise is preserved. No fractures or dislocations are demonstrated. A plantar calcaneal spur is present. Soft tissue swelling overlies the medial malleolus. IMPRESSION: Soft tissue swelling. There is no acute osseous abnormality. WSN: [id number] Ordering Physician: Liberty Arroyo Dictated By: Ann Elena MD Examination: Right ankle and right foot performed 06/18/2023. History: Reason: pain in right ankle Findings: Frontal, oblique, and lateral views of the right ankle and frontal, oblique, and lateral views of the right foot are submitted. The mortise is preserved. No fractures or dislocations are demonstrated. A plantar calcaneal spur is present. Soft tissue swelling overlies the medial malleolus. IMPRESSION: Soft tissue swelling. There is no acute osseous abnormality. WSN: [id number] Ordering Physician: Liberty Arroyo Reason For Referral Reason Recurrent otitis ext daniela despite multiple treatments Diagnosis 1 Other otitis externa , bilateral (H60.8X3) Referral Organization [facility] Referring Provider First Name Liberty Referring Provider Last Name Dina Referring Provider Speciality Nurse Prac titioner Referred Provider Elliott Alvarez Referred Provider Specialty Otolaryngolo gy General Notes Yuly SOSA 07/2023 02:26:37 PM > faxed they will call patient jonathanty, Yuly SOSA 04/15/2023 04:22:50 PM >needs referral [phone] IAN willis Brooke R 04/20/2023 03:17:58 PM > unable to do referral . They will not book patient until she has referral in place. Can you help me add Liberty to my list of providers, Yuly SOSA 04/21/2023 09:37:10 AM > [facility] 04/21/2023 02:25:35 PM >09/22/2023 at 10: 00am arrive 9:30 am [address], [facility] 04/22/2023 11:55:52 AM > mailed to patient Referral Priority Stat Medications Medication SIG (Take, Route, Frequency, Duration) Notes Start Date End Date Status cloNIDine HCl 0.1 MG TAKE 1 TABLET BY [facility] THREE TIMES DAILY NEEDED FOR ANXIETY Oral for 30 Days Active LORazepam 2 MG take 30 mins prior t o each flight Orally Once a day for 4 days 04/08/2023 Unknown OXcarbazepine 300 MG TAKE 1 TABLET BY MO [facility] TWICE DAILY for 30 Active diazePAM 10 MG Oral for 30 Days Active Gabapentin 300 MG TAKE 2 CAPSULES BY M OUTH EVERY MORNING AND EVERY NIGHT AT BEDTIME THEN TAKE 1 CAPSULE BY MOUTH EVERY AFTERNOON Oral for 30 Days Active Cipro HC 0.2-1 % 3 drops into affecte d ear Otic Twice a day for 7 days 04/01/2023 Active Trelegy Ellipta 200-62.5-25 MCG/ACT INHALE 1 PUFF BY MOUTH EVERY DAY for 30 Active Ciprofloxacin-Hydrocortison e 0.2-1 % 3 drops into affected ear Otic Twice a day for 7 days 03/31/2023 Active risperiDONE 3 MG TAKE 1 TABLET BY VIRAL DAILY for 30 Active Baclofen 20 MG Oral for 20 Days Active QUEtiapine Fumarate 25 MG TAKE 1 TABLET BY MOUTH DAILY AT BEDTIME Oral Once a day for 30 days Active Albuterol Sulfate HFA 108 (90 Base) MCG/ACT Inhalation for 25 Days Active Immunizations Vaccine Route Administration Date Status Comme nts *Tdap Unknown 06/20/2015 Administered OUZVP-88-Gepalbi Vaccine Unknown 06/13/2020 Administere d [id number]-49-Utxmkaz Vaccine Unknown 07/11/2020 Administere d YUOAJ-98-Tughluz Vaccine Unknown 03/13/2021 Administere d Social History Tobacco Use: Social History Observation Description Date Details (start date - stop date) Former Smoker 03/29/2003 - 12/27/2021 Tobacco Use/Smoking Question Answer Notes Are you a former smoker when did you start smoking 03/29/2003 when did you stop smoking 12/27/2021 Alcohol Screen (Audit-C) Question Answer Notes Did you have a drink contain ing alcohol in the past year? Yes How often did you have a dri nk containing alcohol in the past year? Monthly or less (1 point) How many drinks did you have on a typical day when you were drinking in the past year? 1 or 2 drinks (0 point) How often did you have 6 or more drinks on one occasion in the past year? Never (0 point) Points 1 Interpretation Negative Problems Problem Type SNOMED Code ICD Code Onset Dates Problem Status W/U Status Risk Notes Problem Anemia due to chronic blood loss (245845163) Iron deficiency anemia secondary to blood loss (chronic) (D50.0) Active confirmed Problem Vitamin D deficiency (62853000) Vitamin D deficiency, unspecified (E55.9) Active confirmed Problem Nicotine dependence (05604718) Nicotine dependence, cigarettes, with other nicotine-induced disorders (F17.218) Active confirmed Problem Mixed bipolar affective disorder, moderate (444655598) Bipolar disorder, current episode mixed, moderate (F31.62) Active confirmed Problem Moderate major depression, single episode (31610986) Major depressive disorder, single episode, moderate (F32.1) Active confirmed Problem Fear of flying (444588406) Fear of flying (F40.243) Active confirmed Problem Generalized anxiety disorder (26497744) Generalized anxiety disorder (F41.1) Active confirmed Problem Otitis externa of bilateral ears (6634191654506241 ) Other otitis externa, bilateral (H60.8X3) Active confirmed Problem Uncomplicated moderate persistent asthma (817632484) Moderate persistent asthma, uncomplicated (J45.40) Active confirmed Problem Endometriosis (623403790) Endometriosis, unspecified (N80.9) Active confirmed Vital Signs Heart Rate 92 /min 06/17/2023 Temperature 97.5 degrees Fahrenheit 06/17/2023 Blood pressure diastolic 72 mm Hg 06/17/2023 Oximetry 96 % 06/17/2023 Height 63.5 in 06/17/2023 Blood pressure systolic 116 mm Hg 06/17/2023 Weight 230.8 lbs 06/17/2023 BMI 40.24 kg/m2 06/17/2023 Encounters Encounter Location Date Provider Diagnosis Sandra Koch MD [address] [id number] 12/14/2022 [facility] Encounter for screen ing for lipoid disorders Z13.220 ; Vitamin D deficiency, unspecified E55.9 ; Encounter for screening for cardiovascular disorders Z13.6 ; Generalized anxiety disorder F41.1 ; Major depressive disorder, single episode, moderate F32.1 ; Bipolar disorder, current episode mixed, moderate F31.62 ; Moderate persistent asthma, uncomplicated J45.40 ; Personal history of other diseases of the female genital tract Z87.42 and Endometriosis, unspecified N80.9 Sandra Koch MD [address] [id number] 01/06/2023 Liberty Arroyo Moderate persistent asthma, uncomplicated J45.40 ; Generalized anxiety disorder F41.1 ; Major depressive disorder, single episode, moderate F32.1 ; Bipolar disorder, current episode mixed, moderate F31.62 ; Elevation of levels of liver transaminase levels R74.01 and Iron deficiency anemia secondary to blood loss (chronic) D50.0 Sandra Koch MD [address] [id number] 01/28/2023 Liberty Arroyo Other otitis externa , bilateral H60.8X3 ; Generalized anxiety disorder F41.1 ; Major depressive disorder, single episode, moderate F32.1 ; Bipolar disorder, current episode mixed, moderate F31.62 and Elevation of levels of liver transaminase levels R74.01 Sandra Koch MD [address] [id number] 03/11/2023 Liberty Arroyo Encounter for genera l adult medical examination without abnormal findings Z00.00 ; Moderate persistent asthma, uncomplicated J45.40 ; Major depressive disorder, single episode, moderate F32.1 ; Bipolar disorder, current episode mixed, moderate F31.62 ; Iron deficiency anemia secondary to blood loss (chronic) D50.0 ; Elevation of levels of liver transaminase levels R74.01 ; Other otitis externa, bilateral H60.8X3 ; Fear of flying F40.243 ; Vitamin D deficiency, unspecified E55.9 ; Encounter for screening for cardiovascular disorders Z13.6 ; Encounter for immunization Z23 ; Encounter for antibody response examination Z01.84 ; Encounter for screening for other viral diseases Z11.59 and Encounter for screening examination for other mental health and behavioral disorders Z13.39 Sandra Koch MD [address] [id number] 03/31/2023 Liberty Arroyo Other otitis externa , bilateral H60.8X3 and Palpitations R00.2 Sandra Koch MD [address] [id number] 04/29/2023 Liberty Arroyo Localized edema R60. 0 ; Shortness of breath R06.02 and Bipolar disorder, current episode mixed, moderate F31.62 Sandra Koch MD [address] [id number] 06/17/2023 Liberty Arroyo Localized edema R60. 0 ; Shortness of breath R06.02 ; Bipolar disorder, current episode mixed, moderate F31.62 ; Nicotine dependence, cigarettes, with other nicotine-induced disorders F17.218 ; Other otitis externa, bilateral H60.8X3 and Pain in right ankle and joints of right foot M25.571 Sandra Koch MD [address] [id number] 09/20/2023 Liberty Koch MD [address] [id number] 01/06/2023 Liberty Koch MD [address] [id number] 01/14/2023 Liberty Koch MD [address] [id number] 01/18/2023 Liberty Koch MD [address] [id number] 03/12/2023 Liberty Koch MD [address] [id number] 03/12/2023 Liberty Koch MD [address] [id number] 03/12/2023 Liberty Koch MD [address] [id number] 03/12/2023 Liberty Koch MD [address] [id number] 03/15/2023 Liberty Koch MD [address] [id number] 03/16/2023 Liberty Koch MD [address] [id number] 03/30/2023 Liberty Arroyo Sandra Koch MD [address] [id number] 03/30/2023 Liberty Arroyo Sandra Koch MD [address] [id number] 04/01/2023 Liberty Arroyo Other otitis externa , bilateral H60.8X3 Sandra Koch MD [address] [id number] 04/01/2023 Liberty Arroyo Other otitis externa , bilateral H60.8X3 Sandra Koch MD [address] [id number] 04/05/2023 Liberty Arroyo Sandra Koch MD [address] [id number] 04/07/2023 Liberty Arroyo Fear of flying F40.2 43 Sandra Koch MD [address] [id number] 04/08/2023 Liberty Arroyo Fear of flying F40.2 43 Sandra Koch MD [address] [id number] 04/26/2023 Liberty Arroyo Sandra Koch MD [address] [id number] 05/21/2023 Liberty Dina Koch MD [address] [id number] 06/18/2023 Liberty Dina Koch MD [address] [id number] 12/14/2022 Liberty Arroyo Sandra Koch MD [address] [id number] 12/30/2022 Liberty Arroyo Vitamin D deficiency , unspecified E55.9 and Thrombocytosis, unspecified D75.839 Sandra Koch MD [address] [id number] 01/04/2023 Liberty Koch MD PC [address] [place] [address] [id number] 01/29/2023 Liberty Dina Koch MD PC [address] [place] [address] [id number] 03/12/2023 Liberty Koch MD [address] [id number] 03/12/2023 Liberty Koch MD PC [facility] [address] [place] [address] [id number] 03/12/2023 Liberty Koch MD PC 50 [facility] [address] [place] [address] [id number] 03/16/2023 Liberty Koch MD PC 50 [facility] [address] [place] [address] [id number] 03/16/2023 Liberty Koch MD PC 50 [facility] [address] [place] [address] [id number] 03/23/2023 Liberty Koch MD PC 50 [facility] [address] [place] [address] [id number] 03/23/2023 Liberty Koch MD PC 50 [facility] [address] [place] [address] [id number] 03/24/2023 Liberty Koch MD PC 50 [facility] [address] [place] [address] [id number] 04/05/2023 Liberty Koch MD PC [address] [place] [address] [place] [address] [id number] 04/06/2023 Liberty Koch MD PC 50 [facility] [address] [place] [address] [id number] 04/07/2023 Liberty Koch MD PC 50 [facility] [address] [place] [address] [id number] 04/08/2023 Liberty Koch MD PC [address] [place] [address] [place] [address] [id number] 04/22/2023 Liberty Koch MD PC [address] [place] [address] [place] [address] [id number] 04/22/2023 Liberty Koch MD PC [address] [place] [address] [place] [address] [id number] 04/28/2023 Liberty Koch MD PC 50 [facility] [address] [place] [address] [id number] 05/10/2023 Liberty Koch MD PC [address] [place] [address] [id number] 05/31/2023 Liberty Arroyo Bipolar disorder, current episode mixed, moderate F31.62 Sandra Koch MD PC [address] [id number] 07/04/2023 Liberty Arroyo Nicotine dependence, cigarettes, with other nicotine-induced disorders F17.218 Sandra Koch MD [address] [id number] 07/05/2023 Liberty Koch MD [address] [id number] 07/16/2023 Liberty Arroyo Bipolar disorder, current episode mixed, moderate F31.62 Assessments Encounter Date Diagnosis (ICD Code) Assessment Notes Treat ment Notes Treatment Clinical Notes 12/14/2022 Vitamin D deficiency, unspecified (ICD-10 - E55.9) Will obtain labs to assess for vitamin D deficiency 12/14/2022 Encounter for screening for lipoid disorders (ICD-10 - Z13.220) Will obtain labs to assess for hyperlipidemia 12/30/2022 Vitamin D deficiency, unspecified (ICD-10 - E55.9) 12/30/2022 Thrombocytosis, unspecified (ICD-10 - D75.839) 01/06/2023 Generalized anxiety disorder (ICD-10 - F41.1) Pt to continue working with her therapist to assist with coping mechanism given underlying anxiety 01/06/2023 Moderate persistent asthma, uncomplicated (ICD-10 - J45.40) Stable and patient has seen much improvement since beginning Trelegy. Patient to continue taking Trelegy daily and using her rescue inhaler only as needed for any breakthrough asthma symptoms. 01/28/2023 Other otitis externa, bilateral (ICD-10 - H60.8X3) Discussed that pt's symptoms are exam findings are consistent with Otitis Externa. Pt to begin ear drops to both ears and should symptoms persist after completing this course, pt to follow-up in office. Also reviewed the importance of keeping ears dry and to use ear plugs if she is going to have her ears submerged in water and even in the shower to ensure water does not stay trapped inside the ear canal. 03/11/2023 Moderate persistent asthma, uncomplicated (ICD-10 - J45.40) Discussed with pt the correct use of a rescue inhaler and pt aware to only use this every 4-6 hours as needed for breakthrough asthma symptoms. Will order Trelegy again as this improved her Asthma symptoms. Trelegy samples also provided while our office works on the authorization for Trelegy. Pt to follow-up in 1 month to assess Asthma symptoms since changing her medications 03/11/2023 Encounter for general adult medical examination without abnormal findings (ICD-10 - Z00.00) General healthcare up-to-date. Reviewed results of routine labs and needed updated labs ordered at this time. Plan will be for annual in 1 year 03/31/2023 Other otitis externa, bilateral (ICD-10 - H60.8X3) Discussed that pt's symptoms are exam findings are consistent with recurrent Otitis Externa. Will begin Ciprofloxacin-hydro cortisone eardrops and would also like patient evaluated by ENT for recurrent otitis externa infections. Patient agreeable with this plan and will follow-up with any new or worsening symptoms despite this treatment 03/31/2023 Palpitations (ICD-10 - R00.2) Discussed patient's recent episode of chest discomfort and palpitations, which both are not present during today's visit. EKG completed in office and normal sinus rhythm noted. Suspect that patient's chest discomfort may be related to underlying anxiety given upcoming travel and her fear of flying. Discussed with patient that she should work on further coping strategies with her therapist regarding her upcoming flight. Patient aware of red flag symptoms of chest pain and she can follow-up in office with any worsening symptoms, return of symptoms, or new symptoms of concern. Patient also aware of when to be seen urgently in an ER setting and when to follow-up in office 04/01/2023 Other otitis externa, bilateral (ICD-10 - H60.8X3) 04/01/2023 Other otitis externa, bilateral (ICD-10 - H60.8X3) 04/07/2023 Fear of flying (ICD-10 - F40.243) 04/08/2023 Fear of flying (ICD-10 - F40.243) 04/29/2023 Shortness of breath (ICD-10 - R06.02) Pt does have SOB at baseline given her underlying asthma diagnosis. Pt to remain on her medications, and she is aware to follow up should she experience any worsening SOB 04/29/2023 Localized edema (ICD-10 - R60.0) Reviewed pt's concerns as well as finding of trace pedal edema. Given this finding will obtain a proBNP level as well as an Echo as pt shares much concern regarding this finding. Also reviewed pt's mental health medications and discussed that her medication could be the underlying cause for her edema and if there are no findings on Echo or lab work, then I advised pt should discuss this symptom with her mental health prescribe and potential adjust medications to help improve her edema and weight gain. Pt plans to contact [facility] to see when she will be provided with a new psychiatrist 05/31/2023 Bipolar disorder, current episode mixed, moderate (ICD-10 - F31.62) 06/17/2023 Shortness of breath (ICD-10 - R06.02) Pt does have SOB at baseline given her underlying asthma diagnosis. Pt to remain on her medications, and she is aware to follow up should she experience any worsening SOB 06/17/2023 Localized edema (ICD-10 - R60.0) Reviewed with patient previous lab work which did not reveal increased proBNP levels. Suspect that her previous pedal edema may have been related to increased weight gain and secondary lifestyle. Encourage patient to work on increasing her exercise and to continue searching for a psychiatrist that may be able to see her sooner and adjust medications as warranted 07/04/2023 Nicotine dependence, cigarettes, with other nicotine-induced disorders (ICD-10 - F17.218) 07/16/2023 Bipolar disorder, current episode mixed, moderate (ICD-10 - F31.62) 06/17/2023 Bipolar disorder, current episode mixed, moderate (ICD-10 - F31.62) Pt is currently without a psychiatrist as she is on a waitlist at [facility]. provided patient with online contact for [employer] which provides online psychiatry support using patient's insurance. Patient to consider this option to find a sooner psychiatrist 04/29/2023 Bipolar disorder, current episode mixed, moderate (ICD-10 - F31.62) Pt is currently without a psychiatrist as she is on a waitlist at [facility]. Will refill pt's Oxcarbazepine and advised pt to follow up with [facility] to see when she will be seen by a new Psychiatrist 01/28/2023 Generalized anxiety disorder (ICD-10 - F41.1) Pt to continue working with her therapist to assist with coping mechanism given underlying anxiety 03/11/2023 Major depressive disorder, single episode, moderate (ICD-10 - F32.1) Pt to continue working with her therapist and encouraged pt to contact [facility] directly to see when she can be assigned a new psychiatrist to ensure proper management of her underlying mental health diagnoses. 01/06/2023 Major depressive disorder, single episode, moderate (ICD-10 - F32.1) Pt to continue working with her therapist and patient encouraged to contact [facility] directly to see when she can be assigned a new psychiatrist to ensure proper management of her underlying mental health diagnoses. 12/14/2022 Encounter for screening for cardiovascular disorders (ICD-10 - Z13.6) BP stable. Will obtain labs to assess for additional cardiac risk such as hyperlipidemia and hyperglycemia 12/14/2022 Generalized anxiety disorder (ICD-10 - F41.1) Pt to continue working with her therapist to assist with coping mechanism given underlying anxiety. Did discuss that her anxiety may be more related to her untreated ADHD given her recent discontinuation of her Vyvanse and pt encouraged to speak to her mental health prescriber to discuss this. Also discussed that too much Albuterol can cause some symptoms of jitteriness and pt to begin different treatment for her Asthma and to only use her rescue inhaler as needed for breakthrough Asthma symptoms 01/28/2023 Major depressive disorder, single episode, moderate (ICD-10 - F32.1) Pt to continue working with her therapist and patient encouraged to contact [facility] directly to see when she can be assigned a new psychiatrist to ensure proper management of her underlying mental health diagnoses. 01/06/2023 Bipolar disorder, current episode mixed, moderate (ICD-10 - F31.62) Patient to remain on current medication regimen and encouraged patient to contact [facility] to schedule an apt with a new mental health prescriber 03/11/2023 Bipolar disorder, current episode mixed, moderate (ICD-10 - F31.62) See plan above 06/17/2023 Nicotine dependence, cigarettes, with other nicotine-induced disorders (ICD-10 - F17.218) Patient admits to beginning cigarette use again and states the only way she stopped smoking in the past was with Chantix. Discussed potential negative side effects of Chantix and patient would like to begin use of this medication and is aware to discontinue use should she have any suicidal ideations, nightmares, or any mood changes. 06/17/2023 Other otitis externa, bilateral (ICD-10 - H60.8X3) Reviewed findings of recurrent otitis externa bilaterally. Will begin treatment with Cipro drops as this has helped to clear previous fungal infections. 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 Will obtain updated lab work as well as a liver u/s to further investigate for underlying causes for these LFT elevations. 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 Given patient's low iron and ferritin levels she would greatly benefit from an iron infusion. Patient agreeable to move forward with infusion and she is aware that she will be contacted to set up a time and day to receive these infusions 01/28/2023 Elevation of levels of liver transaminase levels (ICD-10 - R74.01) Reviewed recent blood work which revealed elevated LFTs and GGTP level as well as a normal FibroSURE test. Also reviewed u/s which suggests fatty liver. Discussed importance of proper diet and weight loss and also discussed that her mental health medications may be irritating her liver causing some liver elevations seen in her labs results. Pt is planning to begin with a new psychiatrist and is hoping to have her medications adjusted. 03/11/2023 Elevation of levels of liver transaminase levels (ICD-10 - R74.01) Reviewed recent blood work which revealed elevated LFTs and GGTP level as well as a normal FibroSURE test. Also reviewed u/s which suggests fatty liver. Discussed importance of proper diet and weight loss and also discussed that her mental health medications may be causing her much trouble with losing weight. Patient plans to discuss her weight as well as medications once she is seen by her new psychiatrist through [facility] 06/17/2023 Pain in right ankle and joints of right foot (ICD-10 - M25.571) Patient is concerned as she is having persistent right ankle pain. Patient states that the pain was related to increased swelling but now the swelling has resolved, she has noticed that the pain in her right ankle and foot. Will obtain right foot and ankle x-rays as well as uric acid to assess for underlying causes for persistent pain. 03/11/2023 Other otitis externa, bilateral (ICD-10 - H60.8X3) Discussed that pt's symptoms are exam findings are consistent with Otitis Externa. Pt to begin ear drops to both ears and should symptoms persist after completing this course, pt to follow-up in office. If patient does have recurrent symptoms she may benefit from an ENT evaluation given recurrent otitis externa infections 12/14/2022 Moderate persistent asthma, uncomplicated (ICD-10 - J45.40) Discussed with pt the correct use of a rescue inhaler and pt aware to only use this every 4-6 hours as needed for breakthrough asthma symptoms. Will begin Trelegy for better management of her ASthma symptoms and sample provided in office today. Pt was able to properly use this inhaler, and she is aware to rinse her mouth after use. Pt to follow-up in 1 month to assess Asthma symptoms since changing her medications 12/14/2022 Personal history of other diseases of the female genital tract (ICD-10 - Z87.42) Pt is s/p partial hysterectomy given longstanding history of Endometriosis and all previous symptoms have resolved since having this surgery 03/11/2023 Fear of flying (ICD-10 - F40.243) CancelRx Response got Denied on 2023-04-07 13:12:10 for 'LORazepam 0.5 MG Tablet'Pharmacy Notes: Unable to Cancel Rx. Please contact Pharmacy Discussed patient's upcoming travel in March and encouraged patient to work on coping strategies to help decrease her anxiety regarding flying. Patient will discuss this with her therapist at her weekly appointments. Also discussed with patient that I will prescribe Ativan and patient to try this medication prior to her flight to see if that can help decrease her anxiety. If patient does not find Ativan helpful she can reach out to the office to determine if there are any additional medications that can assist with her anxiety surrounding flying. Patient also aware not to take diazepam, although she states she has not taken this medication in some time, when she is taking her Ativan 03/11/2023 Vitamin D deficiency, unspecified (ICD-10 - E55.9) patient to continue taking her vitamin D supplement to assist with her underlying deficiency 12/14/2022 Endometriosis, unspecified (ICD-10 - N80.9) See plan above 03/11/2023 Encounter for screening for cardiovascular disorders (ICD-10 - Z13.6) Blood pressure stable. Will plan to check annually for comorbidity of hyperlipidemia and hyperglycemia to further assess risk 03/11/2023 Encounter for immunization (ICD-10 - Z23) Vaccines up-to-date and patient declined the influenza vaccine this year 03/11/2023 Encounter for antibody response examination (ICD-10 - Z01.84) Will obtain an MMR titer 03/11/2023 Encounter for screening for other viral diseases (ICD-10 - Z11.59) Will screen for hepatitis C as per general recommendation 03/11/2023 Encounter for screening examination for other mental health and behavioral disorders (ICD-10 - Z13.39) PHQ score reviewed and patient to continue working with her therapist weekly and to contact [facility] to see when she will be scheduled with a new psychiatrist for her underlying anxiety, depression, and bipolar diagnoses 03/11/2023 Other Plan Of Treatment Pending Test Test Name Order Date Echocardiogram 04/29/2023 COMPLETE CBC WITH DIFF 03/11/2023 COMPREHENSIVE METABOLIC PANEL 03/11/2023 FERRITIN 03/11/2023 IRON & TIBC 03/11/2023 Next Appt Details Provider Name:Liberty Arroyo , 11/08/2023 10:30:00 AM, [address] [place] [address], [phone], Provider Name:Liberty Arroyo , 03/15/2024 10:30:00 AM, [address] [place] [address], [address], [phone], Insurance Providers Payer Name Payer Address Payer Phone Subscriber Number Group Number Insured Name Patient Relationship to Insured Coverage Start Date Coverage End Date [facility] [address] [place] [phone] [id number] Sunita Riggs Self - patient is the insured Medical (General) History Medical History History ICD Code Depression Anxiety Bipolar with anger episodes Pelvic muscle spasms attention deficit hyperactivity disorder Asthma Surgical History Surgery Date(Month/Year) Endometriosis incision 10/2019 Endometriosis incision 05/2021 partial hysterectomy 05/2021 Hospitalization History Reason Date(Month/Year)
--- OUTSIDE RECORDS SUMMARY | 2023-11-03 19:37 | XMS_ITS ---
Author Organization Sandra Koch MD Address [address] [place] [address] [phone] Care Team Providers Care Photo Intern Name Role Phone Liberty Arroyo Primary Care Provider [phone] REASON FOR VISIT 3m f/u mental health Encounters Encounter Location Date Provider Diagnosis Sandra Koch MD [address] [place] [address] [place] [address] [phone] 09/20/2023 Liberty Arroyo Plan Of Treatment Next Appt Details Provider Name:Liberty Arroyo , 11/08/2023 10:30:00 AM, [address] [place] [address], [phone], Provider Name:Liberty Arroyo , 03/15/2024 10:30:00 AM, [address] [place] [address], [phone], Progress Notes * Tammy VAZQUEZB:1990 (33 yo F)Acc No.[id number]:09/20/2023 Progress Notes Patient:?Yesi VAZQUEZa Appointment Provider:?KASH Jennings :1990???Age:33 Y???Sex:Female D ate:09/20/2023 Address:[address] [place] [id number] Subjective: * Chief Complaints: * ???3m f/u mental health * Medical History:? * Surgical History:? * Hospitalization/Major Diagno stic Procedure:? * Medications:? Objective: * Vitals:? Past Vitals:* 06/17/2023 Temp:97.5F, HR:92/min, BP:11 6/72mm Hg, Wt:230.8lbs, BMI:40.24Index, Ht:63.5in, Oxygen sat %:96% * 04/29/2023 Temp:96.1F, HR:88/min, BP:11 8/72mm Hg, Wt:227lbs, BMI:39.58Index, Ht:63.5in, Oxygen sat %:98% * 03/11/2023 Temp:99.5F, HR:102/min, BP:1 28/74mm Hg, Wt:221lbs, BMI:38.53Index, Ht:63.5in, Oxygen sat %:95% Assessment: Plan: * Treatment: * Procedure Codes:? * Images: Billing Information: * Visit Code:? * Procedure Codes:? * Sign off status: Completed true * Appointment Provider:?KASH Jennings Date:?09/20/2023 Generated for Anabel gupta/Mando/Milo on:?11/03/2023 07:37 PM EDT
--- OUTSIDE RECORDS SUMMARY | 2023-11-03 19:37 | XMS_ITS ---
Author Organization Sandra Koch MD Address [address] [place] [address] [phone] Care Team Providers Care Legislative Director Name Role Phone Tulio Arroyoley Primary Care Provider [phone] REASON FOR VISIT RE:RE:chantix Encounters Encounter Location Date Provider Diagnosis Sandra Koch MD [address] [place] [address] [place] [address] [phone] 07/05/2023 Liberty Arroyo Plan Of Treatment Next Appt Details Provider Name:Liberty Arroyo , 11/08/2023 10:30:00 AM, [address] [place] [address], [phone], Provider Name:Liberty Arroyo , 03/15/2024 10:30:00 AM, [address] [place] [address], [phone], Progress Notes * Tammy VAZQUEZB:1990 (33 yo F)Acc No.[id number]:07/05/2023 Patient:?Sunita VAZQUEZ :1990???Age:33 Y???Sex:Female Address:[address] [place] [phone] * true * Date:? Generated for Printi candy/Famahendrag/eTransmitting on:?11/03/2023 07:37 PM EDT
== END 2023-11-03 19:55 | disposition left against medical advice (07) ==
LOC: HO.ED 19:34
PROVIDERS: Emergency Provider Emergency Medicine; PCP Nurse Practitioner Family
DX: J34.89 Other specified disorders of nose and nasal sinuses (principal)
CPT/HCPCS: 99281

== ENCOUNTER 2025-01-18 19:00 | Emergency (ER) | payer OTHER, SELFPAY ==
--- OUTSIDE RECORDS SUMMARY | 2025-01-16 10:12 | XMS_ITS ---
Author Organization Sandra Koch MD Address [address] [place] [phone] Care Team Providers Care Draw In Hand Name Role Phone Liberty Arroyo Primary Care Provider [phone] Allergies No Known Allergies REASON FOR VISIT Symbicort Medications Medication SIG (Take, Route, Frequency, Duration) Notes Start Date End Date Status Symbicort 80-4.5 MCG/ACT INHALE 1 PUFF BY MOUTH EVERY 4 HOURS PRN Inhalation daily; Duration: 30 days brand name only Active Encounters Encounter Location Date Provider Diagnosis Sandra Koch MD [address] [phone] 01/16/2025 Liberty Arroyo Moderate persistent asthma, uncomplicated J45.40 Assessments Encounter Date Diagnosis (ICD Code) Assessment Notes Treatment Notes Treatment Clinical Notes Section Notes 01/16/2025 Moderate persistent asthma, uncomplicated (ICD-10 - J45.40) Plan Of Treatment Medication Medication Name Sig Start Date Stop Date Notes Symbicort 80-4.5 MCG/ACT INHALE 1 PUFF B Y MOUTH EVERY 4 HOURS PRN Inhalation daily; Duration: 30 days brand name only Next Appt Details Provider Name:Liberty Arroyo , 03/20/2025 09:30:00 AM, [address] [place] [address], [phone], Progress Notes * Tammy VAZQUEZB:1990 (34 yo F)Acc No.[id number]:01/16/2025 Patient: Peter Sunita MON[place] :1990 A ge:34 Y S ex:Female Address:[address] [place] [id number] * Refills Refill Symbicort Aerosol, 80-4.5 MCG/ACT, Inhalation, 10.3 Gram, INHALE 1 PUFF BY MOUTH EVERY 4 HOURS PRN, daily, 30 days, Refills=3 Subjective: * Chief Complaints: * S ymbicort * Medical History: * Surgical History: * Hospitalization/Major Diagno stic Procedure: * Medications: * Allergies: N .K.D.A.no[Allergies Verified] Objective: * Vitals: Past Vitals:* 11/13/2024 Temp:96.7F, HR:87/min, BP:11 8/66mm Hg, Wt:225lbs, BMI:39.23Index, Ht:63.5in, Oxygen sat %:95% * 09/06/2024 Temp:97.3F, HR:63/min, Wt:22 0lbs, BMI:38.36Index, Ht:63.5in, Oxygen sat %:97% * 06/14/2024 Temp:96.7F, HR:94/min, Wt:20 1lbs, BMI:35.04Index, Ht:63.5in, Oxygen sat %:98% * Physical Examination: Assessment: * Assessment: 1. M oderate persistent asthma, uncomplicated - J45.40 Plan: * Treatment: * Procedure Codes: * true * Date: Generated for Anabel gupta/Mando/Milo on: 07:48 PM EDT
--- NOTE | ~2025-01-18 | CT_ITS ---
CLINICAL HISTORY: Periumbilical abdominal pain CT abdomen and pelvis with contrast Comparison: None provided Findings: No consolidation or effusion. Subcentimeter segment 8 liver cyst. Gallbladder and solid organs otherwise unremarkable. No urolithiasis. No bowel obstruction, pneumoperitoneum, or pneumatosis. Mesenteric vessels patent. Hysterectomy. Ovaries unremarkable. Normal appendix. No acute fracture. IMPRESSION: No acute findings. This document has been electronically signed by: Jesse Davis MD on 01/18/2025 22:07:03
[2025-01-18 19:13] VITALS: BP 127/78; PULSE 98; RESP 18; TEMP 36.7; O2SAT 97; BMI 36.0
--- NOTE | 2025-01-18 19:13 | ED_ITS ---
HPI - Abdominal Pain General Chief Complaint: Abdominal Pain Stated Complaint: abdominal pain Time Seen by Provider: 01/18/25 19:55 Source: patient Mode of arrival: ambulatory Limitations: no limitations History of Present Illness ED Provider: BARBARA KOLB PA-C HPI narrative: 34 year old female with pmhx significant for bipolar disorder, ADHD, anemia, endometriosis s/p hysterectomy presents to the ED today for evaluation of abdominal pain x3 hours. Patient reports acute onset of abdominal pain at 16:00 today seated at home. Reports taking Tylenol and Motrin around that time without relief. Denies fever, chills, nausea/vomiting, diarrhea, constipation, urinary symptoms, flank pain, vaginal discharge. Normal bowel movement today. No other abdominal surgeries. No recent travel or sick contacts. Related Data Previous Rx's ?Medication ?Instructions ?Recorded ciprofloxacin 0.2 %-hydrocortisone 5 drp otic (ears) Q ID 7 days #10 mL 11/14/22 1 % ear drops,suspension ciprofloxacin 0.2 %-hydrocortisone 5 drp otic (ear) le ft BID 7 days 11/15/22 1 % ear drops,suspension #10 mL oxycodone 5 mg tablet 5 mg PO Q8H PRN pain (scale score 01/19/25 7-10) #9 tabs Allergies Allergy/AdvReac Type Severity Reaction Status Date / Time No Known Allergies Allergy Verified 01/18/25 19:16 Review of Systems Review of Systems Yes all other systems are reviewed and are negative PMFSH Past Medical History Attestation statement: The following information was validated with the patient. Source: old records reviewed and nursing notes reviewed Medical History No known health problems Social History Social History Smoked in Last 30 Days: No Substance Use Type: Marijuana Substance Use Frequency: Daily Advance Directives: No Advance Directives Information Provided: No Physical Exam ED Vital Signs: Vital Signs - 24 hr 01/18/25 19:13 01/18/25 21:51 Temperature 98.1 F Pulse Rate 98 60 Respiratory Rate 18 18 Blood Pressure 127/78 108/54 L Pulse Oximetry 97 Oxygen Delivery Method Room Air BMI result Body Mass Index 36.0 vital signs stable, afebrile General: Well appearing, in no acute distress. Skin: Warm, dry, intact. No rashes or lesions. Head: Normocephalic, atraumatic. EENT: Hearing is intact b/l. Conjunctiva clear. Sclera is anicteric. PERRLA. EOM intact. Moist mucous membranes.? Neck: Supple without LAD Cardiac: Chest wall symmetric. RRR Lungs: Normal respiratory effort without accessory muscle use. CTA bilaterally Abdomen: soft, ND, ttp of RLQ/LLQ, without guarding or rebound. active bs x4. no cvat. Back: No midline spinous or paraspinal tenderness. No step off deformity. Ext: Upper and lower extremities atraumatic, without tenderness, deformity, swelling or erythema Neuro: AOx3. Normal speech. Ambulating with steady gait. Course Course Course Narrative: This is an RME: Additional HPI, ROS, PE not included below will be deferred to primary provider. RME assessment and note performed by: Jessi Price PA-C This is a [id number]-female, with a hx of Bipolar disorder, ADHD, anemia, who presents to the ER with complaints of abdominal pain x 3 hours. Reports that abdominal pain started suddenly at 1600, No N/V/D, no urinary symptoms. Hx of hysterectomy. Plan: Labs, UA, further ER eval needed. Reevaluation(s) Reevaluation #1: CBC without leukocytosis or left shift. No anemia. H&H stable. Chemistry without acute electrolyte abnormality requiring intervention. No MARISELA. Liver function at baseline. lipase wnl. beta quant undetectable - not . UA without infection. ct a/p showing normal appendix, no ovarian masses, no bowel obstruction, normal GB. > medicated with morphine and dilaudid with good effect > work up is unremarkable. her pain is located to mid abdomen, not pelvic. I have extremely low suspicion for ovarian torsion and do not feel as though ultrasound is warranted at this time. Patient has a history of endometriosis, has had biopsies in the past. She is status post hysterectomy. I have suspicion that this pain is secondary to endometriosis. > discussed all work up results with patient. Advised continued Tylenol and Motrin at home, will send oxycodone for breakthrough pain. I advised patient to follow up with your outpatient providers as she may require oral control to help manage her symptoms. She verbalizes understanding. Patient has remained stable throughout ED visit today. Discussed worrisome signs and symptoms and when to return to the ED. All questions answered at this time. Patient is agreeable with disposition and stable for discharge. Medical Decision Making Medical Decision Making [facility] Narrative: 34 year old female with pmhx significant for bipolar disorder, ADHD, anemia, endometriosis s/p hysterectomy presents to the ED today for evaluation of abdominal pain x3 hours. Vital signs stable. Afebrile. She is generally well- appearing and in no acute distress. Her abdomen is obese, soft, ND, ttp of RLQ/LLQ, without guarding or rebound. active bs x4. no cvat. Differential diagnoses: appendicitis, diverticulitis, diverticulosis, UTI, IUP, constipation Abdominal exam without peritoneal signs. No evidence of acute abdomen at this time. Well appearing. Low suspicion for acute hepatobiliary disease (including acute cholecystitis), acute infectious processes (pneumonia, hepatitis, pyelonephritis, PID, TOA), vascular catastrophe, bowel obstruction or viscus perforation, ovarian cyst/ rupture/ torsion, ectopic. Presentation not consistent with other acute, emergent causes of abdominal pain at this time. Plan: labs, UA, CT AP, pain control, fluids, serial reassessment Differential Diagnosis Differential Diagnoses: The differential diagnosis associated with the presentation includes as above Admission/Observation not indicated. Lab Data MDM Lab Attestation statement: I reviewed the patient's lab results. as above. 01/18/25 19:49 01/18/25 19:50 Labs: Lab Results 01/18/25 01/18/25 01/18/25 Range/Units 19:49 19:50 21:51 WBC 6.9 (4.8-10.8) X10*3/uL RBC 4.16 L (4.20-5.50) X10*6/uL Hgb 13.1 (12.0-16.0) g/dl Hct 37.9 (37.0-47.0) % MCV 91.1 (80.0-98.0) fL MCH 31.5 (27.0-33.0) pg MCHC 34.6 (31.0-35.0) g/dl RDW 12.8 (11.0-16.0) % Plt Count 377 (160-400) X10*3/uL MPV 9.5 (9.4-12.3) fL Immature Gran % (Auto) 0.1 (0.0-0.4) % Neut % (Auto) 58.1 (45-73) % Lymph % (Auto) 30.4 (20-40) % [place] % (Auto) 6.7 (2-11) % Eos % (Auto) 3.8 (0-4) % Baso % (Auto) 0.9 (0-2) % Lymph # (Auto) 2.1 (1.2-4.9) X10*3/uL [place] # (Auto) 0.5 (0.1-1.2) X10*3/uL Eos # (Auto) 0.3 (0.0-0.4) X10*3/uL Baso # (Auto) 0.1 (0.0-0.2) X10*3/uL Abs Immat Gran (auto) 0.01 (0.00-0.03) X10*3/uL Absolute Neuts (auto) 4.0 (2.0-8.3) x10*3/uL Absolute Nucleated RBC 0.000 (0.0-0.012) X10*3/uL Nucleated RBC % (auto) 0.0 (0.0-0.2) /100WBC Sodium 141 (135-145) mmol/L Potassium 3.8 (3.3-5.1) mmol/L Chloride 110 H (96-108) mmol/L Carbon Dioxide 23 (22-29) mmol/L Anion Gap 12 (12-20) BUN 5 L (9-16) mg/dL Creatinine 0.69 (0.5-1.4) mg/dL Estim Creat Clear Calc 128.6 Estimated GFR > 60 Random Glucose 99 (60-115) mg/dL Calcium 9.1 (8.4-10.2) mg/dL Magnesium 2.1 (1.6-2.6) mg/dL Total Bilirubin 0.4 (0.0-1.0) mg/dL Direct Bilirubin 0.1 (0.0-0.5) mg/dL AST 25 (5-31) U/L ALT 35 H (0-31) U/L Alkaline Phosphatase 99 (39-117) U/L Total Protein 6.6 (6.5-8.0) g/dL Albumin 4.4 (3.5-5.0) g/dL Lipase 20 (8-78) U/L Beta HCG, Quant < 2 mIU/mL Urine Color Yellow Urine Appearance Clear Urine pH 6.5 (5.0-9.0) Ur Specific [place] >= 1.030 H (1.005-1.025) Urine Protein Trace (Neg-Trace) mg/dL Urine Glucose (UA) Negative (Negative) mg/dL Urine Ketones Trace (Negative) mg/dL Urine Blood Negative (Negative) Urine Nitrite Negative (Negative) Ur Leukocyte Esterase Negative (Negative) Independent Interpretation I performed an independent interpretation of an: CT Scan Interpretation: CT a/p without bowel obstruction Radiology Impression Discussion of test interpretation with radiology: I have reviewed the radiologist's reading. Radiologist Impression: Procedure(s): CT abdomen pelvis w IV con Accession Number(s): [id number] cc: Liberty Arroyo BONE GRINDER; Barbara Kolb~ Report Number: [id number]: Total DLP = 671.00 mGy-cm Reason for Exam: Periumbilical abdominal pain CLINICAL HISTORY: Periumbilical abdominal pain CT abdomen and pelvis with contrast Comparison: None provided Findings: No consolidation or effusion. Subcentimeter segment 8 liver cyst. Gallbladder and solid organs otherwise unremarkable. No urolithiasis. No bowel obstruction, pneumoperitoneum, or pneumatosis. Mesenteric vessels patent. Hysterectomy. Ovaries unremarkable. Normal appendix. No acute fracture. IMPRESSION: No acute findings. This document has been electronically signed by: Jesse Davis MD on 01/18/2025 22:07:03 Independent Historian Clinical information obtained from an independent historian. History obtained from or confirmed by: Parent External Record Review External record reviewed: Inpatient record Prescription Management I considered prescription management with: Pain Medication Chronic Conditions Patient?s care impacted by: Other (endometriosis) Social Determinants Patient?s care significantly limited by Social Determinants of Health including: Other Social Determinant of Health Medications Administered Discontinued Medications Generic Name Dose Route Start Last Admin Trade Name Freq PRN Reason Stop Dose Admin Hydromorphone HCl 1 mg 01/18/25 21:31 01/18/25 21:48 Hydromorphone Hcl 1 Mg/Ml Syringe IVPUSH 01/18/25 21:32 1 mg ONCE ONE Administration Protocol Sodium Chloride 1,000 mls @ 999 mls/hr 01/18/25 20:30 01/18/25 23:10 Ns IV 01/18/25 21:30 Infused .Q1H1M ANTONINA Infusion Iohexol 100 ml 01/18/25 21:07 01/18/25 21:10 Iohexol 350 Mg/Ml 100 Ml Infus..Btl IV 01/18/25 21:08 85 ml ONCE ONE Administration Morphine Sulfate 5 mg 01/18/25 20:21 01/18/25 20:32 Morphine Sulfate 10 Mg/Ml Cartridge IVPUSH 01/18/25 20:22 5 mg ONCE ONE Administration Protocol Oxycodone HCl 5 mg 01/19/25 00:13 01/19/25 00:30 Oxycodone Hcl Immed Release 5 Mg Tablet PO 01/19/25 00:14 5 mg ONCE ONE Administration Critical Care Time Critical Care Time Critical Care Time: Yes Total Critical Care Time: 38 Attestation: Critical care time in the amount of 38 minutes has been provided to the patient in terms of direct patient care, frequent reevaluation on IV morphine/ dilaudid, review and interpretation of medical data and results, and management of potentially life-threatening conditions. This is all outside of any medical procedures. Discharge Plan Discharge Clinical Impression: Abdominal pain Patient Disposition: Home, Self-Care Instructions: Abdominal Pain (ED) Additional Instructions: Your work up today is reassuring. Take Tylenol and Motrin at home for pain/discomfort. I am sending oxycodone, a controlled pain medication, to your pharmacy for you to take for breakthrough pain control. Please use this with caution as opioid pain medications have addictive properties. I have also provided you with Narcan as accidental overdoses on oxycodone can occur. Opioid pain medications can often cause constipation. I recommend taking this with an over the counter laxative and/or stool softener to help move your bowels. Please follow up with outpatient providers. I have suspicion that this is pain from endometriosis. You may need to be placed on oral control pill. Return with any new or worsening symptoms. In the case of an emergency call 911. Prescriptions: New oxycodone 5 mg tablet 5 mg PO Q8H PRN (Reason: pain (scale score 7-10)) Qty: 9 0RF Rx Instructions: Partial Fill upon patient request. No Action ciprofloxacin-hydrocortisone 0.2-1 % drops,suspension 5 drp otic (ears) QID 7 Days Qty: 10 0RF ciprofloxacin-hydrocortisone 0.2-1 % drops,suspension 5 drp otic (ear) left BID 7 Days Qty: 10 0RF Rx Instructions: Use if insufficient supply of first bottle Referrals: Liberty Arroyo NP [Primary Care Provider, Medical] Print Language: Burkinan
--- OUTSIDE RECORDS SUMMARY | 2025-01-18 19:48 | XMS_ITS | Clinical Summary ---
Author Organization [facility] Address [address] [place] [address] Care Team Providers Care Oil Expeller Operator Name Role Phone Liberty Arroyo NP Primary Care Provider [phone] Allergies No known active allergies Medications Medication Sig Dispensed Refills Start Date End Date Status Ventolin HFA 108 (90 Base) MCG/ACT inhaler INHALE 2 PUFFS BY MOUTH EVERY 6 HOURS 0 12/02/2022 Active baclofen (LIORESAL) 20 MG tablet Take 1 tablet (20 mg total) by mouth 3 (three) times a day as needed. for muscle spasm 0 11/26/2022 Active Cholecalciferol (Vitamin D3) 50 MCG (2000 UT) TABS Take 2 tablets by mouth daily. 0 01/01/2023 Active cloNIDine (CATAPRES) tablet 0.1 mg Take 1 tablet (0.1 mg total) by mouth 3 (three) times a day as needed. for anxiety 0 01/04/2023 Active diazePAM (VALIUM) 10 MG tablet 0 01/18/2023 Active Trelegy Ellipta 100-62.5-25 MCG/ACT AEPB Take 1 puff by mouth daily. 0 12/19/2022 Active OXcarbazepine (TRILEPTAL) 600 MG tablet Take 1 tablet (600 mg total) by mouth. 0 12/15/2022 Active QUEtiapine (SEROquel) 25 MG tablet Take 1 tablet (25 mg total) by mouth. 0 12/15/2022 Active risperiDONE (RisperDAL) 3 MG tablet Take 1 tablet (3 mg total) by mouth daily. 0 01/04/2023 Active Active Problems Problem Noted Date Diagnosed Date Anemia 01/18/2023 Social History Tobacco Use Types Packs/Day Years Used Date Smoking Tobacco: Never Assessed Sex and Gender Information Value Date Recorded Sex Assigned at Female 01/14/2023 12:30 PM EDT Gender Identity Not on file Sexual Orientation Not on file Job Start Date Occupation Industry Not on file Not on file Not on file Last Filed Vital Signs Vital Sign Reading Time Taken Comments Blood Pressure 114/72 01/25/2023 1:12 PM EDT Pulse 91 01/25/2023 1:12 PM EDT Temperature 36.8 C (98.3 F) 01/25/2023 1:12 PM EDT Respiratory Rate 20 01/19/2023 1:15 PM EDT Oxygen Saturation 97% 01/25/2023 1:12 PM EDT Inhaled Oxygen Concentration - - Weight - - Height - - Body Mass Index - - Plan of Treatment Health Maintenance Due Date Last Done Comments Hepatitis B Vaccines (1 of 3 - 3-dose series) 1990 Hepatitis C Screening 1990 COVID-19 Vaccine (#1) 1990 Depression Screening 2002 Preventative Health Evaluation 2008 Cervical Cancer Screening (Pap Smear) 2011 Influenza Vaccine (#1) 2024 0, 12/09/2018, 01/04/2014, Additional history exists DTap / Tdap / Td (2 - Td or Tdap) 06/19/2025 06/20/2015 Pneumococcal Vaccine Aged Out No long er eligible based on patient's age to complete this topic RSV Ped < 20 months Aged Out No longe r eligible based on patient's age to complete this topic Care Teams Oil Expeller Operator Relationship Specialty Start Date End Date Liberty Arroyo [employer] [address] [id number] PCP - General Family Medicine 01/14/23
--- OUTSIDE RECORDS SUMMARY | 2025-01-18 19:49 | XMS_ITS | Patient Health Record ---
Author Organization Sandra Koch MD Address [address] [place] [address] [phone] Care Team Providers Care Rn Nicu Name Role Phone Liberty Arroyo Primary Care Provider Allergies No Known Allergies Results Component Value Reference Range Notes Iron and TIBC-[id number] Reviewed date:06/30/2024 01:13:08 PM Interpretation: Performing Lab:[facility], [facility] [place], Phone - [phone], Director - Ho Notes/Report: Iron Bind.Cap.(TIBC) 308 250-450 ug/dL UIBC 241 131-425 ug/dL Iron 67 27-159 ug/dL Iron Saturation 22 15-55 % Hemoglobin X2h-[id number] Reviewed date:06/30/2024 01:13:08 PM Interpretation: Performing Lab:[facility] [place], Phone - [phone], Director - Ho Notes/Report: Hemoglobin A1c 5.2 4.8-5.6 % . Prediabetes: 5.7 - 6.4 Diabetes: >6.4 Glycemic control for adults with diabetes: <7.0 Ferritin-[id number] Reviewed date:06/30/2024 01:13:08 PM Interpretation: Performing Lab:[facility] [place], Phone - [phone], Director - Ho Notes/Report: Ferritin 177 15-150 ng/mL CBC With Differential/Platel et-[id number] Reviewed date:06/30/2024 01:13:08 PM Interpretation: Performing Lab:[facility], [place], Phone - [phone], Director - Ho Notes/Report: WBC 6.1 3.4-10.8 x10E3/uL RBC 4.08 3.77-5.28 x10E6/uL Hemoglobin 13.1 11.1-15.9 g/dL Hematocrit 39.2 34.0-46.6 % MCV 96 79-97 fL MCH 32.1 26.6-33.0 pg MCHC 33.4 31.5-35.7 g/dL RDW 12.0 11.7-15.4 % Platelets 315 150-450 x10E3/uL Neutrophils 56 Not Estab. % Lymphs 32 Not Estab. % Monocytes 7 Not Estab. % Eos 4 Not Estab. % Basos 1 Not Estab. % Neutrophils (Absolute) 3.5 1.4-7.0 x10E3/uL Lymphs (Absolute) 2.0 0.7-3.1 x10E3/uL Monocytes(Absolute) 0.4 0.1-0.9 x10E3/uL Eos (Absolute) 0.3 0.0-0.4 x10E3/uL Baso (Absolute) 0.1 0.0-0.2 x10E3/uL Immature Granulocytes 0 Not Estab. % Immature Grans (Abs) 0.0 0.0-0.1 x10E3/uL Vitamin D, 41-Vqhntjy-[id number] Reviewed date:06/30/2024 01:13:08 PM Interpretation: Performing Lab:[facility] [place], [address] [facility], [place], Phone - [phone], Director - Ho Notes/Report: Vitamin D, 25-Hydroxy 12.8 30.0-100.0 ng/mL Vitamin D deficiency has been defined by the [place] of [employer] and an Endocrine Society practice guideline as a level of serum 25-OH vitamin D less than 20 ng/mL (1,2). The Endocrine Society went on to further define vitamin D insufficiency as a level between 21 and 29 ng/mL (2). 1. IOM ([place] of [employer]). 2010. Dietary reference intakes for calcium and D. [place]: The National Academies Press. 2. John MF, Kriss [place], hCester FUCHS, et al. Evaluation, treatment, and prevention of vitamin D deficiency: an Endocrine Society clinical practice guideline. JCEM. 2010; 96(7):1911-30. Albumin/Creatinine Ratio,Uri ne-[id number] Reviewed date:06/30/2024 01:13:08 PM Interpretation: Performing Lab:[facility], [facility], Phone - [phone], Director - MDJodry Notes/Report: Creatinine, Urine 33.2 Not Estab. mg/dL Albumin, Urine <3.0 Not Estab. ug/mL Alb/Creat Ratio <9 0-29 mg/g creat Normal: 0 - 29 Moderately increased: 30 - 300 Severely increased: >300 HCV Antibody RFX to Quant PC R-[id number] Reviewed date:06/30/2024 01:13:08 PM Interpretation: Performing Lab:[facility], [facility], [place], Phone - [phone], Director - MDJodry Notes/Report: HCV Ab Non Reactive Non Reactive Interpretation: Not infected with HCV unless early or acute infection is suspected (which may be delayed in an immunocompromised individual), or other evidence exists to indicate HCV infection. Comp. Metabolic Panel (14)-3 73511 Reviewed date:06/30/2024 01:13:08 PM Interpretation: Performing Lab:[facility], [address] [place] [address], [place], Phone - [phone], Director - MDGopiy Notes/Report: Glucose 90 70-99 mg/dL BUN 14 6-20 mg/dL Creatinine 0.70 0.57-1.00 mg/dL eGFR 116 >59 mL/min/1.73 BUN/Creatinine Ratio 20 9-23 Sodium 140 134-144 mmol/L Potassium 4.6 3.5-5.2 mmol/L Chloride 105 96-106 mmol/L Carbon Dioxide, Total 19 20-29 mmol/L Calcium 9.2 8.7-10.2 mg/dL Protein, Total 5.9 6.0-8.5 g/dL Albumin 3.9 3.9-4.9 g/dL Globulin, Total 2.0 1.5-4.5 g/dL Bilirubin, Total <0.2 0.0-1.2 mg/dL Alkaline Phosphatase 157 44-121 IU/L AST (SGOT) 14 0-40 IU/L ALT (SGPT) 17 0-32 IU/L LP+Non-HDL Cholesterol-83891 5 Reviewed date:06/30/2024 01:13:08 PM Interpretation: Performing Lab:[facility] [address] [place] [address], Phone - [phone], Director - Ho Notes/Report: Cholesterol, Total 148 100-199 mg/dL Triglycerides 74 0-149 mg/dL HDL Cholesterol 48 >39 mg/dL VLDL Cholesterol Ike 15 5-40 mg/dL LDL Chol Calc (NIH) 85 0-99 mg/dL Non-HDL Cholesterol 100 0-129 mg/dL UA/M w/rflx Culture, Routine -[id number] Reviewed date:06/30/2024 01:13:08 PM Interpretation: Performing Lab:[facility] [place], [address] [place] [address], Phone - [phone], Director - Ho Notes/Report: Specific Monroe 1.014 1.005-1.030 pH 6.0 5.0-7.5 Urine-Color Yellow Yellow Appearance Clear Clear WBC Esterase Negative Negative Protein Negative Negative/Trace Glucose Negative Negative Ketones Negative Negative Occult Blood Negative Negative Bilirubin Negative Negative Urobilinogen,Semi-Qn 0.2 0.2-1.0 mg/dL Nitrite, Urine Negative Negative Microscopic Examination Micr oscopic follows if indicated. Microscopic Examination See below: Micr oscopic was indicated and was performed. Urinalysis Reflex This speci men will not reflex to a Urine Culture. WBC None seen 0 - 5 /hpf RBC None seen 0 - 2 /hpf Epithelial Cells (non renal) 0-10 0 - 10 /hpf Casts None seen None seen /lpf Bacteria None seen None seen/Few Uric Acid-[id number] Reviewed date:09/08/2024 08:24:04 AM Interpretation: Performing Lab:[facility] [address] [place] [address], Phone - [phone], Director - Ho Notes/Report: Uric Acid 2.6 2.6-6.2 mg/dL Therapeutic ta rget for gout patients: <6.0 CBC With Differential/Platel et-[id number] Reviewed date:09/08/2024 08:24:04 AM Interpretation: Performing Lab:[facility] [place], [address] [place] [address], Phone - [phone], Director - Ho Notes/Report: WBC 6.8 3.4-10.8 x10E3/uL RBC 4.21 3.77-5.28 x10E6/uL Hemoglobin 13.4 11.1-15.9 g/dL Hematocrit 39.3 34.0-46.6 % MCV 93 79-97 fL MCH 31.8 26.6-33.0 pg MCHC 34.1 31.5-35.7 g/dL RDW 12.0 11.7-15.4 % Platelets 374 150-450 x10E3/uL Neutrophils 64 Not Estab. % Lymphs 25 Not Estab. % Monocytes 7 Not Estab. % Eos 4 Not Estab. % Basos 0 Not Estab. % Neutrophils (Absolute) 4.3 1.4-7.0 x10E3/uL Lymphs (Absolute) 1.7 0.7-3.1 x10E3/uL Monocytes(Absolute) 0.5 0.1-0.9 x10E3/uL Eos (Absolute) 0.3 0.0-0.4 x10E3/uL Baso (Absolute) 0.0 0.0-0.2 x10E3/uL Immature Granulocytes 0 Not Estab. % Immature Grans (Abs) 0.0 0.0-0.1 x10E3/uL B-Type Natriuretic Peptide-1 80472 Reviewed date:09/08/2024 08:24:04 AM Interpretation: Performing Lab:[facility], [address] [place] [address], Phone - [phone], Director - MDdry Notes/Report: B-Type Natriuretic Peptide 49.7 0.0-100.0 pg/m L Siemens ADVIA Centaur XP methodology Comp. Metabolic Panel (14)-3 91007 Reviewed date:09/08/2024 08:24:04 AM Interpretation: Performing Lab:[facility], [address] [place] [address], Phone - [phone], Director - MDJodry Notes/Report: Glucose 102 70-99 mg/dL BUN 13 6-20 mg/dL Creatinine 0.54 0.57-1.00 mg/dL eGFR 124 >59 mL/min/1.73 BUN/Creatinine Ratio 24 9-23 Sodium 138 134-144 mmol/L Potassium 4.5 3.5-5.2 mmol/L Chloride 100 96-106 mmol/L Carbon Dioxide, Total 23 20-29 mmol/L Calcium 9.5 8.7-10.2 mg/dL Protein, Total 6.5 6.0-8.5 g/dL Albumin 4.4 3.9-4.9 g/dL Globulin, Total 2.1 1.5-4.5 g/dL Bilirubin, Total <0.2 0.0-1.2 mg/dL Alkaline Phosphatase 147 44-121 IU/L AST (SGOT) 23 0-40 IU/L ALT (SGPT) 29 0-32 IU/L Reason For Referral No Information Medications Medication SIG (Take, Route, Frequency, Duration) Notes Start Date End Date Status Adderall 5 MG 1 tablet Orally daily in the afternoon; Duration: 30 days 12/29/2024 Active Trelegy Ellipta 200-62.5-25 MCG/ACT INHALE 1 PUFF BY MOUTH EVERY DAY; Duration: 30 Active Ferrous Sulfate 325 (65 Fe) MG 1 tablet Orally Three times a Week; Duration: 30 days 12/09/2023 Active Gemtesa 75 MG TAKE 1 TABLET BY MOUTH ONCE DAILY; Duration: 30 Active Adderall XR 20 MG 1 capsule in the morning Orally Once a day; Duration: 30 days 12/29/2024 Active risperiDONE 3 MG TAKE 1 TABLET BY MOUTH DAILY; Duration: 30 Active diazePAM 10 MG 1 tablet as needed for pelvic pain Oral as needed daily; Duration: 30 days Active Symbicort 80-4.5 MCG/ACT INHALE 1 PUFF BY MOUTH EVERY 4 HOURS PRN Inhalation daily; Duration: 30 days brand name only Active ARIPiprazole 2 MG Oral; Duration: 30 Days Active Methocarbamol 750 MG Oral; Duration: 10 Days Active Propranolol HCl 10 MG TAKE 1 TABLET BY MOUTH EVERY 12 HOURS ON AN EMPTY STOMACH FOR ANXIETY; Duration: 30 Active QUEtiapine Fumarate 25 MG TAKE 1 TABLET BY MOUTH DAILY AT BEDTIME Oral Once a day; Duration: 30 days Active Immunizations Vaccine Route Administration Date Status Comme nts *PREVNAR 20 IM Intramuscular 03/15/2024 Administered *Tdap Unknown 06/20/2015 Administered ZQAXB-25-Fqznblm Vaccine Unknown 03/13/2021 Administere d PDKWB-16-Cccqskr Vaccine Unknown 07/11/2020 Administere d DSTOC-10-Hcqhblk Vaccine Unknown 06/13/2020 Administere d Social History Tobacco Use: Social History Observation Description Date Details (start date - stop date) Current Smoker NA - NA Alcohol Screen (Audit-C) Question Answer Notes Did [...] Never (0 point) Points 1 Interpretation Negative Tobacco Control (Standard) Question Answer Notes Tobacco use: Current smoker How often do you smoke cigarettes? Every day How many cigarettes a day do you smoke? 6-10 Problems Problem Type SNOMED Code ICD Code Onset Dates Problem Status W/U Status Risk Notes Problem Anemia due to chronic blood loss (disorder) (178461225) Iron deficiency anemia secondary to blood loss (chronic) (D50.0) Active confirmed Problem Vitamin D deficiency (68185483) Vitamin D deficiency, unspecified (E55.9) Active confirmed Problem Nicotine dependence (39696771) Nicotine dependence, cigarettes, with other nicotine-induced disorders (F17.218) Active confirmed Problem Mixed bipolar affective disorder, moderate (635463111) Bipolar disorder, current episode mixed, moderate (F31.62) Active confirmed Problem Moderate major depression, single episode (19576817) Major depressive disorder, single episode, moderate (F32.1) Active confirmed Problem Fear of flying (570702714) Fear of flying (F40.243) Active confirmed Problem Generalized anxiety disorder (22013268) Generalized anxiety disorder (F41.1) Active confirmed Problem Otitis externa of bilateral ears (8149913828867506 ) Other otitis externa, bilateral (H60.8X3) Active confirmed Problem Uncomplicated moderate persistent asthma (632900212) Moderate persistent asthma, uncomplicated (J45.40) Active confirmed Problem Endometriosis (792829120) Endometriosis, unspecified (N80.9) Active confirmed Problem Attention deficit hyperactivity disorder, predominantly inattentive type (disorder) (53201498) Attention and concentration deficit (R41.840) Active confirmed Vital Signs Heart Rate 87 /min 11/13/2024 Temperature 96.7 degrees Fahrenheit 11/13/2024 Blood pressure diastolic 66 mm Hg 11/13/2024 Oximetry 95 % 11/13/2024 Height 63.5 in 11/13/2024 Blood pressure systolic 118 mm Hg 11/13/2024 Weight 225 lbs 11/13/2024 BMI 39.23 kg/m2 11/13/2024 Encounters Encounter Location Date Provider Diagnosis Sandar Koch MD [address] [id number] 03/15/2024 Liberty Arroyo Encounter for genera l adult medical examination without abnormal findings Z00.00 ; Moderate persistent asthma, uncomplicated J45.40 ; Bipolar disorder, current episode mixed, moderate F31.62 ; Major depressive disorder, single episode, moderate F32.1 ; Generalized anxiety disorder F41.1 ; Attention and concentration deficit R41.840 ; Frequency of micturition R35.0 ; Impaired fasting glucose R73.01 ; Nicotine dependence, cigarettes, with other nicotine-induced disorders F17.218 ; Iron deficiency anemia secondary to blood loss (chronic) D50.0 ; Vitamin D deficiency, unspecified E55.9 ; Encounter for screening for cardiovascular disorders Z13.6 ; Encounter for immunization Z23 ; Encounter for antibody response examination Z01.84 ; Encounter for screening for other viral diseases Z11.59 ; Encounter for screening examination for other mental health and behavioral disorders Z13.39 and Encounter for screening for malignant neoplasm of cervix Z12.4 Sandra Koch MD [address] [id number] 04/13/2024 Liberty Arroyo Nicotine dependence, cigarettes, with other nicotine-induced disorders F17.218 and Other otitis externa, bilateral H60.8X3 Sandra Koch MD [address] [id number] 06/14/2024 Liberty Arroyo Moderate persistent asthma, uncomplicated J45.40 ; Bipolar disorder, current episode mixed, moderate F31.62 ; Major depressive disorder, single episode, moderate F32.1 ; Attention and concentration deficit R41.840 and Other otitis externa, bilateral H60.8X3 Sandra Koch MD [address] [id number] 09/06/2024 Liberty Arroyo Localized swelling, mass and lump, left lower limb R22.42 Sandra Koch MD [address] [id number] 11/13/2024 Liberty Arroyo Bipolar disorder, current episode mixed, moderate F31.62 ; Moderate persistent asthma, uncomplicated J45.40 ; Major depressive disorder, single episode, moderate F32.1 and Attention and concentration deficit R41.840 Sandra Koch MD [address] [id number] 04/13/2024 Liberty Koch MD [address] [id number] 05/09/2024 Liberty Koch MD [address] [id number] 06/30/2024 Liberty Koch MD [address] [id number] 09/01/2024 Liberty Koch MD [address] [id number] 11/14/2024 Liberty Koch MD [address] [id number] 11/30/2024 Liberty Koch MD [address] [id number] 01/03/2025 Liberty Arroyo Moderate persistent asthma, uncomplicated J45.40 Sandra Koch MD [address] [id number] 01/16/2025 Liberty Arroyo Moderate persistent asthma, uncomplicated J45.40 Sandra Koch MD [address] [id number] 04/13/2024 Liberty Arroyo Other otitis externa , bilateral H60.8X3 Sandra Koch MD [address] [id number] 05/17/2024 Liberty Arroyo Iron deficiency E61. 1 Sandra Koch MD [address] [id number] 05/29/2024 Liberty Arroyo Other otitis externa , bilateral H60.8X3 and Generalized anxiety disorder F41.1 Sandra Koch MD [address] [id number] 05/30/2024 Liberty Koch MD [address] [id number] 06/21/2024 Liberty Koch MD [address] [id number] 07/03/2024 Liberty Koch MD [address] [id number] 07/13/2024 Liberty Arroyo Attention and concentration deficit R41.840 Sandra Koch MD [address] [id number] 07/19/2024 Liberty Arroyo Moderate persistent asthma, uncomplicated J45.40 Sandra Koch MD [address] [id number] 08/08/2024 Liberty Arroyo Attention and concentration deficit R41.840 Sandra Koch MD [address] [id number] 09/05/2024 Liberty Arroyo Sandra Koch MD [address] [id number] 09/05/2024 Liberty Arryoo Sandra Koch MD [address] [id number] 09/07/2024 Liberty Arroyo Attention and concentration deficit R41.840 Sandra Koch MD [address] [id number] 10/04/2024 Liberty Arroyo Attention and concentration deficit R41.840 Sandra Koch MD [address] [id number] 10/04/2024 Liberty Arroyo Moderate persistent asthma, uncomplicated J45.40 Sandra Koch MD [address] [id number] 10/31/2024 Liberty Arroyo Attention and concentration deficit R41.840 Sandra Koch MD [address] [id number] 11/03/2024 Liberty Arroyo Frequency of micturition R35.0 Sandra Koch MD [address] [id number] 11/03/2024 Liberty Arroyo Iron deficiency E61. 1 Sandra Koch MD [address] [id number] 11/13/2024 Liberty Arroyo Sandra Koch MD [address] [id number] 11/14/2024 Liberty Arroyo Sandra Koch MD [address] [id number] 11/22/2024 Liberty Arroyo Sandra Koch MD [address] [id number] 11/22/2024 Liberty Koch MD [address] [id number] 11/22/2024 Liberty Koch MD [address] [id number] 12/25/2024 Liberty Koch MD [address] [id number] 12/27/2024 Liberty Arroyo Attention and concentration deficit R41.840 Assessments Encounter Date Diagnosis (ICD Code) Assessment Notes Treatment Notes Treatment Clinical Notes Section Notes 03/15/2024 Encounter for general adult medical examination without abnormal findings (ICD-10 - Z00.00) General healthcare up-to-date. Will obtain updated routine labs. Plan will be for annual exam 03/15/2024 Moderate persistent asthma, uncomplicated (ICD-10 - J45.40) Stable at present time and patient offers no complaints of worsening asthma symptoms at this time. Patient to remain on current medication regimen 04/13/2024 Nicotine dependence, cigarettes, with other nicotine-induced disorders (ICD-10 - F17.218) Patient has noticed great improvement in her cigarette use since beginning Chantix. She states that when she successfully quit smoking in the past she was taking Chantix twice daily. Patient has had no mental health concerns, nightmares, or suicidal ideations since starting Chantix. Given her lack of negative side effects and decrease in cigarette use, will increase patient's Chantix to further assist in smoking cessation. Patient aware to discontinue use of this medication should she have any suicidal ideations, nightmares, or any worsening mood changes 04/13/2024 Other otitis externa, bilateral (ICD-10 - H60.8X3) 05/17/2024 Iron deficiency (ICD-10 - E61.1) 05/29/2024 Other otitis externa, bilateral (ICD-10 - H60.8X3) 05/29/2024 Generalized anxiety disorder (ICD-10 - F41.1) 07/13/2024 Attention and concentration deficit (ICD-10 - R41.840) 07/19/2024 Moderate persistent asthma, uncomplicated (ICD-10 - J45.40) 08/08/2024 Attention and concentration deficit (ICD-10 - R41.840) 09/06/2024 Localized swelling, mass and lump, left lower limb (ICD-10 - R22.42) Discussed with patient her recent medication adjustment made by her mental health prescriber and discussed that I suspect her weight gain is related to her increased Trileptal dosing. Also discussed that the increased Trileptal dose may be the underlying cause for her joint swelling and discomfort. Would like patient to increase her water intake and wear compression stockings while we obtain further lab work. Did review with patient that she recently completed an echocardiogram (in Apr 2024) without findings to explain her intermittent swelling in her legs. Will obtain a uric acid level to rule out gout as well.Given patient's pain that she did feel on Wednesday with associated swelling will also obtain an ultrasound of her left DVT although this seems to be a less likely diagnosis 09/07/2024 Attention and concentration deficit (ICD-10 - R41.840) 10/04/2024 Attention and concentration deficit (ICD-10 - R41.840) 10/04/2024 Moderate persistent asthma, uncomplicated (ICD-10 - J45.40) 10/31/2024 Attention and concentration deficit (ICD-10 - R41.840) 11/03/2024 Iron deficiency (ICD-10 - E61.1) 11/03/2024 Frequency of micturition (ICD-10 - R35.0) 11/13/2024 Bipolar disorder, current episode mixed, moderate (ICD-10 - F31.62) Patient to continue working with her mental health providers as well as her psychiatrist for additional mental health support and medication management. Patient shares concerns that her psychiatrist discontinued oxcarbazepine and since this her mood has become more depressed as well as her having increased episodes of anger and being short with her children. Encouraged patient to reach out to her psychiatrist to consider med adjustments 06/14/2024 Moderate persistent asthma, uncomplicated (ICD-10 - J45.40) Stable at present time and patient has had no asthma exacerbation symptoms. Patient to remain on current medication regimen at this time 06/14/2024 Bipolar disorder, current episode mixed, moderate (ICD-10 - F31.62) Stable at present time and patient to continue working with her mental health providers for proper management of her mental health diagnoses 12/27/2024 Attention and concentration deficit (ICD-10 - R41.840) 01/03/2025 Moderate persistent asthma, uncomplicated (ICD-10 - J45.40) 01/16/2025 Moderate persistent asthma, uncomplicated (ICD-10 - J45.40) 06/14/2024 Major depressive disorder, single episode, moderate (ICD-10 - F32.1) Stable at present time and patient to continue working with her mental health providers for further management of her underlying mental health diagnoses 11/13/2024 Moderate persistent asthma, uncomplicated (ICD-10 - J45.40) Stable at present time and patient offers no asthma symptoms of concern at today's visit. She feels as though her asthma is well-managed on her current medication regimen 04/13/2024 Other otitis externa, bilateral (ICD-10 - H60.8X3) Reviewed with patient her presenting symptoms as well as exam findings that are consistent with that of another otitis externa infection. Will begin Ciprofloxacin-hyd rocortisone eardrops and encouraged patient to consider using giol-fqx-pxnayiw swimmers ear preventative drops as well as ear plugs when she will be showering or in any body of water given her susceptibility for otitis externa infections. Patient agreeable with this plan and will follow-up with any new or worsening symptoms despite this treatment 03/15/2024 Bipolar disorder, current episode mixed, moderate (ICD-10 - F31.62) Stable at present time and patient to continue working with her mental health providers for proper management of her mental health diagnoses 03/15/2024 Major depressive disorder, single episode, moderate (ICD-10 - F32.1) Stable at present time and patient to continue working with her mental health providers for further management of her underlying mental health diagnoses 11/13/2024 Major depressive disorder, single episode, moderate (ICD-10 - F32.1) See plan above.Patient to follow-up with her therapist and psychiatrist to discuss medication management changes to further improve her underlying mood 06/14/2024 Attention and concentration deficit (ICD-10 - R41.840) Spent much time discussing patient's concerns of focus and concentration issues. Patient with a longstanding history of attention deficit and admits to spending more time with psychiatry speaking about her underlying bipolar diagnoses. Patient states since making medication adjustments and beginning propranolol her depression and anxiety symptoms seem well-controlled. Patient is interested in beginning treatment to assist with her ADHD symptoms that are not well-managed. Patient had previously tried Adderall but did not feel as though this helped to manage her symptoms. Due to this, will begin Vyvanse to see if this can better manage her focus and concentration concerns. Controlled substance contract signed in office today. Patient to begin 30 mg Vyvanse daily and she is aware to request refills monthly. Plan will be for follow-up in 4 months to ensure improvement in ADHD symptoms since starting this daily medication 11/13/2024 Attention and concentration deficit (ICD-10 - R41.840) Spent much time discussing patient's concerns of lack of focus and concentration despite trialing Vyvanse and increasing her dose to see if this would better manage her ADHD symptoms. Patient states that she has not seen a great improvement in her focus and concentration since starting Vyvanse or increasing the dose over the past few months. Due to this would like patient to discontinue her Vyvanse and begin Adderall XR 20 mg as she states that she did see great improvement 11 years ago when she was on Adderall. She states the only reason that she stopped was due to her . Will begin 20 mg of Adderall XR even the patient states she was treated with 30 mg 11 years ago. Patient aware that I would like her to start 20 mg XR dosing to ensure she does not have any adverse reactions or negative side effects from this dose. If patient feels as though it is working but is not managing her symptoms as much as she would like we could consider increasing her dose in the future. Patient agreeable with this plan and will speak to her psychiatrist about this as well. 06/14/2024 Other otitis externa, bilateral (ICD-10 - H60.8X3) Patient continues to have concerns of persistent otitis externa infections. Patient to continue with her ciprofloxacin eardrops to further manage findings of persistent external infection in both ears. Patient is scheduled for ENT follow-up on June 26 to discuss further treatment options and proper management of her persistent otitis externa infection since 2022. 03/15/2024 Generalized anxiety disorder (ICD-10 - F41.1) Patient was recently started on Lexapro by her psychiatrist but she has not noticed improvement in her anxiety. Will begin propranolol to be used 1-2 times daily to assist with breakthrough anxiety. Patient is scheduled to speak with her psychiatrist this month to continue working on proper management of anxiety, depression, and bipolar 03/15/2024 Attention and concentration deficit (ICD-10 - R41.840) Patient shared much concern of her untreated ADHD. Patient states her psychiatrist would like to further manage her bipolar, anxiety, and depression before managing her ADHD. Did discuss with patient that medication such as Vyvanse may be a good option to ensure proper management of ADHD without potential side effects of increased anxiety she may feel with other stimulants 03/15/2024 Frequency of micturition (ICD-10 - R35.0) Discussed with patient her frequent urination and her previous suspicion of interstitial cystitis. Previous lab work did rule out infection, increased sugar levels, or altered kidney function. Patient has seen improvement in urinary frequency with use of Gemtesa and encouraged patient to continue using this medication daily. Spent much time discussing patient's diagnosis of interstitial cystitis and discussed that diet and smoking can worsen symptoms of interstitial cystitis. Plan will be for patient to follow-up in 3 months to reassess urinary frequency symptoms and we will offer her urogynecology evaluation once again as patient has continued to decline this evaluation for urodynamic study 03/15/2024 Impaired fasting glucose (ICD-10 - R73.01) Patient with previous findings of impaired fasting glucose levels and will obtain an updated comprehensive panel as well as hemoglobin A1c level 03/15/2024 Nicotine dependence, cigarettes, with other nicotine-induced disorders (ICD-10 - F17.218) Encouraged patient to continue working on decreasing her cigarette use daily and counseled on smoking cessation. Patient previously used Chantix and would like a refill of this medication to further assist in managing her cigarette use. 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 Will obtain updated lab work to ensure improvement in iron and ferritin levels 03/15/2024 Vitamin D deficiency, unspecified (ICD-10 - E55.9) Will check level to verify that there is no deficiency 03/15/2024 Encounter for screening for cardiovascular disorders (ICD-10 - Z13.6) Blood pressure stable. Will check for comorbidity of hyperlipidemia and hyperglycemia to further assess risk 03/15/2024 Encounter for immunization (ICD-10 - Z23) Reviewed vaccine status and patient agreeable to obtain her pneumonia vaccine due to history of asthma 03/15/2024 Encounter for antibody response examination (ICD-10 - Z01.84) Titers have been checked in the past and there is immunity to rubeola 03/15/2024 Encounter for screening for other viral diseases (ICD-10 - Z11.59) Will screen for hepatitis C as per general recommendation 03/15/2024 Encounter for screening examination for other mental health and behavioral disorders (ICD-10 - Z13.39) PHQ score reviewed and patient to continue working with her mental health providers for additional support 03/15/2024 Encounter for screening for malignant neoplasm of cervix (ICD-10 - Z12.4) Patient completed her last Pap smear in 2021 before undergoing a hysterectomy due to endometriosis. Patient does not believe that she has a cervix and encouraged patient to provide our office with notes from her implementation specialist payroll to review to ensure her cervix has been removed and there would be no need for further cervical cancer screenings. 03/15/2024 Other Plan Of Treatment Pending Test Test Name Order Date Ultrasound : Doppler : Veins Leg Left COMPLETE CBC WITH DIFF 03/11/2023 COMPREHENSIVE METABOLIC PANEL 03/11/2023 FERRITIN 03/11/2023 IRON & TIBC 03/11/2023 UA/M w/rflx Culture, Routine-[id number] 11/27 Next Appt Details Provider Name:Liberty Arroyo , 03/20/2025 09:30:00 AM, [address] [place] [address], [address], [place], [place], [id number], Insurance Providers Payer Name Payer Address Payer Phone Subscriber Number Group Number Insured Name Patient Relationship to Insured Coverage Start Date Coverage End Date [facility] [address] [place] [address] [id number] Sunita Riggs Self - patient is the insured Medical (General) History Medical History History ICD Code Depression Anxiety Bipolar with anger episodes Pelvic muscle spasms attention deficit hyperactivity disorder Asthma Surgical History Surgery Date(Month/Year) Endometriosis incision 10/2019 Endometriosis incision 05/2021 partial hysterectomy 05/2021 Hospitalization History Reason Date(Month/Year)
--- OUTSIDE RECORDS SUMMARY | 2025-01-18 19:49 | XMS_ITS | Clinical Summary ---
Author Organization [facility] Address [address] [place] [phone] Phone Care Team Providers Care Computer Systems Hardware Analyst Name Role Phone Liberty Arroyo NP Primary Care Provider [phone] Surgical History Surgery Date Site/Laterality Comments OTHER SURGICAL HISTORY PROCEDURE: DENIES PREVIOUS SURGERY Medical History Medical History Date Comments Insomnia DX:Insomnia Family History Medical History Relation Name Comments Breast cancer Neg Hx Colon cancer Neg Hx Ovarian cancer Neg Hx Prostate cancer Neg Hx Social History Tobacco Use Types Packs/Day Years Used Date Smoking Tobacco: Smoker, Cur rent Status Unknown Cigarettes 0.5 16.6 Started: 009 Smokeless Tobacco: Never Alcohol Use Standard Drinks/Week Comments Yes 0 (1 standard drink = 0.6 oz pur e alcohol) Comments Unknown Sex and Gender Information Value Date Recorded Sex Assigned at Not on file Legal Sex Female 5:21 PM EST Gender Identity Not on file Sexual Orientation Not on file Obstetrics History Plan of Treatment Health Maintenance Due Date Last Done Comments DTaP,Tdap,and Td Vaccines (1 - Tdap) 2009 Hepatitis B Vaccines (1 of 3 - 19+ 3-dose series) 2009 Pneumococcal Vaccine: Pediat rics (0 to 5 Years) and At-Risk Patients (6 to 49 Years) (1 of 2 - PCV) 2009 HPV Vaccines (1 - 3-dose SCD M series) 2017 Cervical Cancer Screening: P ap Smear 07/08/2021 07/08/2018 HIV Screening 02/28/2022 Hepatitis C Screening 02/28/2022 Social Influencers of Health Screening 02/28/2022 Depression Screening 03/29/2024 COVID-19 Vaccine ( - 2023-2 5 season) 2024 Influenza Vaccine (#1) 2024 RSV Immunization Adult Patie nts (1 - 1-dose 75+ series) 2065 HIB Vaccines Aged Out No longer eligi ble based on patient's age to complete this topic Hepatitis A Vaccines Aged Out No long er eligible based on patient's age to complete this topic IPV Vaccines Aged Out No longer eligi ble based on patient's age to complete this topic MMR Vaccines Aged Out No longer eligi ble based on patient's age to complete this topic Meningococcal ACWY Vaccine Aged Out N o longer eligible based on patient's age to complete this topic Meningococcal B Vaccine Aged Out No l onger eligible based on patient's age to complete this topic RSV Immunization Patients Un jose 20 months Aged Out No longer eligible b ased on patient's age to complete this topic Varicella Vaccines Aged Out No longer eligible based on patient's age to complete this topic Procedures Procedure Name Priority Date/Time Associated Diagnosis Comments PAP SMEAR Routine 07/08/2018 from Last 3 Months or Most Recently Relevant to Health Maintenance Results * Pap smear (07/08/2018) 07/08/2018 Narrative HISTORICAL TESTING LAB RESULTING AGENCY - 07/13/2018 2:55 PM EDT [id number] THINPREP PAP, IMAGED: NEGATIVE FOR SQUAMOUS INTRAEPITHELIAL LESION AND MALIGNANCY . YO CROWDER(ASCP) (CASE ELECTRONICALLY SIGNED 07 13 2018) ADEQUACY: SATISFACTORY ENDOCERVICAL/TRANSFORMATION ZONE COMPONENT ABSENT. SOURCE: THINPREP PAP HPV IF ASCUS, CERVICAL, IMAGED CLINICAL INFORMATION: HPV IF DIAGNOSIS OF ASCUS. Z12.4 Annel [facility] CYTOLOGY ORDERABLES Final R esult HISTORICAL TESTING LAB RESULTING AGENCY from Last 3 Months or Most Recently Relevant to Health Maintenance Insurance [place] - [place] [facility] [place] [employer] Care Teams Computer Systems Hardware Analyst Relationship Specialty Start Date End Date Liberty Arroyo NP [address] [place] [id number] PCP - General Family Medicine 09/14/24
--- OUTSIDE RECORDS SUMMARY | 2025-01-18 19:49 | XMS_ITS | Data Portability ---
Author Organization [place] [facility], Allergy Address [address] [place] [address] Care Team Providers Care Software Firmware Engineer Name Role Phone ART DRUMMOND Primary Care Provider [phone] TYLOR KRISHNAMURTHY Primary Care Provider Assessment Encounter Date Assessment Date Assessment LastModified by Organization Details LastModified Time 11/03/2023 11/03/2023 33-year-old fembryson whatley presents for reevaluation of fungal otitis externa. On examination she has significant fungal debris which was cleared thoroughly. Recommended Lotrisone injection today which was performed bilaterally. She was instructed in dry ear precaution. Follow-up in 3 to 4 weeks for reevaluation. All questions were answered. [email or web address] Not available 11/03/2023 09:49:00 08/03/2024 08/03/2024 34yo female presents for evaluation of the ears. Otologic exam demonstrates external ears with diffuse dry flaky skin. Her bilateral external auditory canals are erythematous with purulent otorrhea, suctioned today. The TMs are difficult to assess with active infection. Culture was obtained of the right-sided otorrhea, will adjust treatment based on results. Placed lotrisone into bilateral EACs and sent prescription to use on external ears. Recommend topical TobraDex twice daily for 14 days, starting in 2 days. Reviewed drop administration and water precautions. Patient will return for revaluation in 2 weeks to assess for infection resolution. Will offer audiometric testing once infection resolves if hearing loss persists. Patient agrees with plan. [email or web address] Not available 08/03/2024 10:55:48 08/17/2024 08/17/2024 34yo female with history of chronic mycotic otitis externa presents for evaluation of the ears. Otologic symptoms resolved with lotrisone. Right ear culture demonstrated Staphylococcus aureus susceptible to gentamicin and Sherri Parapsilosis. Exam demonstrates persistent purulent otorrhea right worse than left, removed today. We placed otomax into external auditory canals. Reviewed dry ear precautions. Patient will follow-up in 7-10 days for reevaluation, and repeat otomax placement if necessary. She will continue to use topical Lotrisone as needed on external ears. [email or web address] Not available 08/17/2024 12:46:14 08/31/2024 08/31/2024 34yo female with history of chronic mycotic otitis externa presents for evaluation of the ears. Symptoms improved with topical otomax bilaterally. TMs and external auditory canals are normal to inspection. Recommend dry ear precautions and topical Lotrisone maintenance for external ear dermatitis 1-2 time weekly. Patient will follow-up in the office as needed. [email or web address] Not available 08/31/2024 12:15:53 01/08/2025 01/08/2025 34-year-old fema le with history of chronic mycotic otitis externa presents with concerns about a right ear infection. On examination there is erythema and overlying dry flaky skin in the right conchal bowl and at the meatus. The right EAC is mildly edematous with circumferential white fungal discharge, which was suctioned away today. There is flaky meatal skin on the left ear and the EAC does not have any edema or discharge today. Both tympanic membranes are intact with well-aerated middle ear spaces. The right discharge looks fungal today, however due to the tenderness and edematous appearance of the EAC there may be an additional bacterial component. Since the patient responded well to Otomax in July and her culture showed sensitivity to gentamicin I applied Otomax to the right ear today. I recommend using Lotrisone cream to both external ears and at the meatus bilaterally 3 times daily for 2 weeks to treat the dermal mycosis. She will follow up in 2 weeks to ensure resolution of the infection. Recommended dry ear precautions until her follow up. [email or web address] Not available 01/08/2025 12:31:52 Plan of Treatment Reminders Order Date Submit Date Provider Last Modified By Organization Details Last Modified Time Details Appointments Establish ed 15 2024 09:30A M GABI BUSTILLOS, [place] Not available Not available Not available Lab fungus, culture, unspecifi ed specimen 2024 [facility] (Centralized Electronic Ordering - All Locations), Patient Can Go To The Location Of Their Choice, [id number] 08/21/2024 13:53:21 culture, bacterial 2024 [place] [facility] (Centralized Electronic Ordering - All Locations), Patient Can Go To The Location Of Their Choice, 08/17/2024 11:57:33 Referral None recorded. Procedures None recorded. Surgeries None recorded. Imaging None recorded. Medication Orders clotrimaz ole-betam ethasone 1 %-0.05 % topical cream 2024 [facility][id number], [address], [place], [id number], 01/08/2025 11:07:00 tobramyci n 0.3 %-dexamet hasone 0.1 % eye drops,lynette pension 2024 [facility] #[id number], [address] [place] [address], [id number], 08/17/2024 10:23:16 clotrimaz ole-betam ethasone 1 %-0.05 % topical cream 2024 [facility] #[id number], [address], [place], [id number], 08/31/2024 11:11:30 Patient TargetsNo targets recorded. Patient InstructionsNo instructions recorded. Reason for Referral None Reported. Results Created Date Observation Date Name Description Value Unit Range Abnormal Flag Note LastModifiedBy Organization Detail LastModifiedTime 08/04/1908/06/2024 ANAER OBIC AND AEROB IC CULTU RE aerobic culture Final report abnormal Not Available [facility] ([facility]) [address] [facility], [place], [address], 09/01/2024 11:16:49 08/04/19 25 08/06/2024 ANAER OBIC AND AEROB IC CULTU RE result 1 COMMEN T abnormal Methi cilli n - resis tant Staph yloco ccus aureu s Based on resis tance to oxaci llin this isola te would be resis tant to all curre ntly avail able beta- lacta m antim icrob ial agent s, with the excep tion of the newer cepha lospo rins with anti- MRSA activ ity, such as Cefta rolin e Not Available [facility] ([facility]) [address] [facility], [place], [address], 09/01/2024 11:16:49 08/04/19 25 08/06/2024 ANAER OBIC AND AEROB IC CULTU RE result 2 Candid a paraps ilosis abnormal Heavy growt h Not Available [facility] ([facility]) [address] [facility], [place], [address], 09/01/2024 11:16:49 08/04/19 25 08/06/2024 ANAER OBIC AND AEROB IC CULTU RE antimicrobia l susceptibili ty Commen t S = Susce ptibl e; I = Inter media te; R = Resis tant P = Posit sarah; N = Negat sarah MICS are expre ssed in micro grams per mL Antib iotic RSLT# 1 RSLT# 2 RSLT# 3 RSLT# 4 Cipro floxa davy R Clind amyci n S Eryth romyc in S Genta micin S Levof loxac in R Linez olid S Oxaci llin R Penic illin R Rifam pin S Tetra cycli ne S Trime thopr im/Lloyd lfa S Vanco mycin S Not Available [facility] ([facility]) [address] [facility], [place], [address], 09/01/2024 11:16:49 08/04/19 25 08/07/2024 ANAER OBIC AND AEROB IC CULTU RE anaerobic culture Final report Not Available [facility] ([facility]) [address] [facility], [place], [address], 09/01/2024 11:16:49 08/04/19 25 08/07/2024 ANAER OBIC AND AEROB IC CULTU RE result 1 COMMEN T No anaer obic growt h in 72 hours . Not Available [facility] ([facility]) [address] [facility], [place], [address], 09/01/2024 11:16:49 08/04/19 25 08/04/2024 FUNGU S CULTU RE WITH STAIN fungus stain Final report abnormal Not Available [facility] ([facility]) [address] [facility], [place], [address], 09/01/2024 11:16:50 08/04/19 25 08/04/2024 FUNGU S CULTU RE WITH STAIN result 1 Yeast observ ed abnormal Not Available [facility] ([facility]) [address] [place], [address], 09/01/2024 11:16:50 08/04/19 25 09/01/2024 FUNGU S CULTU RE WITH STAIN fungus (mycology) culture Final report abnormal Not Available [facility] ([facility]) [address] [place], [address], 09/01/2024 11:16:50 08/04/19 25 09/01/2024 FUNGU S CULTU RE WITH STAIN result 1 Candid a paraps ilosis abnormal Light growt h Not Available [facility] ([facility]) [address] [place], [address], 09/01/2024 11:16:50 Result Notes None recorded. Problems Name Problem SNOMED Code Status Onset Date Resolution Date Notes Provider Name and Address Organization Details Recorded Time Candidal otitis externa 63912376 Active 2023 ALEE MILLER MD [address] [place] [address], [place], [address] , [facility] - [facility] 10:07:48 Dermal mycosis 87891314 Active 2023 R[address]IT [address]URRIETA [address], [facility] [place], [address] , [facility] [place] 5 11:06:04 Chronic mycotic otitis externa 110325738 Active 2023 RANJIT MURRIETA [address], [place], [address] , [facility] - [facility] [place] 5 11:06:02 Impacted cerumen of bilateral ears 1906815373602 108 Active 2023 Not Available [facility] 4 10:11:11 Otorrhea 89141443 Active 2024 RANJIT MURRIETA [address],[facility] [address], [facility] [place], [address] , [facility] - [facility] 5 11:06:06 Infective otitis externa of bilateral ears 3580647023210 100 Active 2024 TERESITA ZENDEJAS PA-C [address],[place] [address], [place], [address] , [facility] - [facility] [place] 5 12:46:35 Problem Notes None recorded. Procedures Surgical History Date Name Laterality Status Provider Name and Address Organization Details Recorded Time 4 Cerumen removal with microscope bilateral completed ALEE MILLER MD [address],[place] [address], [place], [address], [facility] - [facility] 09/22/2023 10:07:54 Imaging Results None recorded. Procedure Notes None recorded. Medical Equipment None Reported. Allergies No known drug allergies Medications Name Sig Start Date Stop Date Status Note LastModified by Organization Details LastModified Time vitamin d3 50 mcg (1999) tabs 08/17 completed Not Available Not Available Not Available quetiapine 25 mg tablet TAKE 1 TO 2 TABLETS BY MOUTH EVERY NIGHT AT BEDTIME active Not Available Not Available No t Available neomycin-po lymyxin-hyd rocort 3.5 mg/mL-10,00 0 unit/mL-1 % ear solution INSTILL 4 DROPS TO AFFECTED EAR THREE TIMES DAILY FOR 10 DAYS 08/17 completed Not Available Not Available Not Available clonidine HCl 0.1 mg tablet TAKE 1 TABLET BY MOUTH THREE TIMES DAILY NEEDED FOR ANXIETY 10/31 completed Not Available Not Available Not Available ketoconazol e 2 % shampoo APPLY TOPICALLY TO THE SCALP EVERY OTHER DAY. LEAVE ON 5 MINUTES THEN WASH OFF active Not Available Not Available No t Available tizanidine 4 mg tablet TAKE 1 TABLET BY MOUTH THREE TIMES DAILY FOR MUSCLE SPASM 10/31 completed Not Available Not Available Not Available sertraline 100 mg tablet TAKE 1 TABLET BY MOUTH DAILY. START AFTER TAKING 75 MG DAILY FOR 1 WEEK 08/17 completed Not Available Not Available Not Available triamcinolo ne acetonide 0.025 % lotion APPLY TOPICALLY TO THE SCALP TWICE DAILY NEEDED FOR FLARES 08/17 completed Not Available Not Available Not Available oxcarbazepi ne 300 mg tablet TAKE 2 TABLETS BY MOUTH EVERY NIGHT AT BEDTIME AND 1 TABLET EVERY MORNING active Not Available Not Available No t Available risperidone 3 mg tablet TAKE 1 TABLET BY MOUTH EVERY NIGHT AT BEDTIME active Not Available Not Available No t Available Adderall XR 20 mg capsule,ext ended release TAKE 1 CAPSULE BY MOUTH DAILY IN THE MORNING active Not Available Not Available No t Available baclofen 20 mg tablet TAKE 1 TABLET BY MOUTH THREE TIMES DAILY NEEDED FOR MUSCLE SPASMS 10/31 completed Not Available Not Available Not Available propranolol 10 mg tablet TAKE 1 TO 2 TABLETS BY MOUTH THREE TIMES DAILY NEEDED FOR ANXIETY. DO NOT TAKE IF PULSE IS. LESS THAN 60 active Not Available Not Available No t Available Deep Sea Nasal 0.65 % spray aerosol SPRAY TWICE IN EACH NOSTRIL FOUR TIMES DAILY NEEDED 08/17 completed Not Available Not Available Not Available lorazepam 0.5 mg tablet TAKE 1 TABLET BY MOUTH 1 TIME 30 TO 60 MINUTES BEFORE FLYING FOR 5 DAYS 08/17 completed Not Available Not Available Not Available methocarbam ol 750 mg tablet active Not Available Not Available Not Available Ear Wax Removal Drops 6.5 % INSTILL 2 DROPS TO AFFECTED EAR EVERY 12 HOURS FOR 4 DAYS 10/31 completed Not Available Not Available Not Available lorazepam 2 mg tablet TAKE 1 TABLET BY MOUTH DAILY AT BEDTIME FOR 2 DAYS NEEDED 08/17 completed Not Available Not Available Not Available clotrimazol e-betametha sone 1 %-0.05 % topical cream APPLY TO THE SKIN OF THE AFFECTED EXTERNAL EAR CANAL WITH FINGERTIP 3 TIMES PER DAY FOR 2 WEEKS 2024 active Not Available Not Available Not Avai lable clotrimazol e 1 % topical solution APPLY 4 DROPS TO THE AFFECTED EAR 3 TIMES A DAY FOR 2 WEEKS 08/31 completed Not Available Not Available Not Available orphenadrin e citrate ER 100 mg tablet,exte nded release TAKE 1 TABLET BY MOUTH EVERY 12 HOURS active Not Available Not Available No t Available gabapentin 300 mg capsule TAKE 2 CAPSULES BY MOUTH EVERY MORNING AND EVERY NIGHT AT BEDTIME THEN TAKE 1 CAPSULE BY MOUTH EVERY AFTERNOON 10/31 completed Not Available Not Available Not Available oxcarbazepi ne 600 mg tablet TAKE 1 TABLET BY MOUTH TWICE DAILY. INCREASE DOSE 08/31 completed Not Available Not Available Not Available diazepam 10 mg tablet TAKE 1 TABLET BY MOUTH TWICE DAILY NEEDED active Not Available Not Available No t Available Cipro HC 0.2 %-1 % ear drops,suspe nsion INSTILL 3 DROPS INTO THE AFFECTED EAR TWICE DAILY 08/17 completed Not Available Not Available Not Available hydrocortis one 2.5 % topical ointment APPLY TO FACE TWICE DAILY NEEDED FOR FLARES DECREASE TO ONCE DAILY AND EVERY OTHER DAY SYMPTOMS IMPROVE 01/08 completed Not Available Not Available Not Available risperidone 1 mg tablet TAKE 1 TABLET BY MOUTH TWICE DAILY 08/17 completed Not Available Not Available Not Available dextroamphe tamine-amph etamine 5 mg tablet TAKE 1 TABLET BY MOUTH DAILY IN THE AFTERNOON active Not Available Not Available No t Available risperidone 0.5 mg tablet TAKE 1 TABLET BY MOUTH DAILY 01/08 completed Not Available Not Available Not Available Ventolin HFA 90 mcg/actuati on aerosol inhaler INHALE 2 PUFFS BY MOUTH EVERY 6 HOURS 01/08 completed Not Available Not Available Not Available tobramycin 0.3 %-dexametha sone 0.1 % eye drops,suspe nsion INSTILL 4 DROPS IN BOTH EARS TWICE DAILY FOR 14 DAYS 08/17 completed Not Available Not Available Not Available olanzapine 5 mg disintegrat ing tablet DISSOLVE 1 TABLET ON THE TONGUE DAILY NEEDED FOR AGITATION 10/31 completed Not Available Not Available Not Available escitalopra m 10 mg tablet TAKE 1/2 TABLET BY MOUTH DAILY FOR 3 DAYS THEN TAKE 1 TABLET BY MOUTH DAILY 08/17 completed Not Available Not Available Not Available escitalopra m 20 mg tablet TAKE 1 TABLET BY MOUTH DAILY active Not Available Not Available No t Available bupropion HCl XL 300 mg 24 hr tablet, extended release TAKE 1 TABLET BY MOUTH DAILY active Not Available Not Available No t Available bupropion HCl XL 150 mg 24 hr tablet, extended release TAKE 1 TABLET BY MOUTH DAILY 08/17 completed Not Available Not Available Not Available Flovent HFA 110 mcg/actuati on aerosol inhaler INHALE 2 PUFFS BY MOUTH TWICE DAILY 08/17 completed Not Available Not Available Not Available varenicline tartrate 1 mg tablet TAKE 1 TABLET BY MOUTH TWICE DAILY AFTER A MEAL WITH A FULL GLASS OF WATER 08/17 completed Not Available Not Available Not Available varenicline tartrate 0.5 mg tablet TAKE 1 TABLET BY MOUTH DAILY AFTER A MEAL WITH A FULL GLASS OF WATER 08/17 completed Not Available Not Available Not Available aripiprazol e 2 mg tablet TAKE 1 TABLET BY MOUTH DAILY active Not Available Not Available No t Available Vyvanse 30 mg capsule TAKE 1 CAPSULE BY MOUTH DAILY IN THE MORNING 08/17 completed Not Available Not Available Not Available Symbicort 80 mcg-4.5 mcg/actuati on HFA aerosol inhaler INHALE 1 PUFF BY MOUTH EVERY 4 HOURS NEEDED active Not Available Not Available No t Available Vyvanse 50 mg capsule TAKE 1 CAPSULE BY MOUTH DAILY IN THE MORNING 01/08 completed Not Available Not Available Not Available FeroSul 325 mg (65 mg iron) tablet TAKE 1 TABLET BY MOUTH 3 TIMES A WEEK active Not Available Not Available No t Available Vyvanse 60 mg capsule TAKE 1 CAPSULE BY MOUTH DAILY IN THE MORNING active Not Available Not Available No t Available Vyvanse 40 mg capsule TAKE 1 CAPSULE BY MOUTH DAILY IN THE MORNING 08/17 completed Not Available Not Available Not Available cholecalcif tracey (vitamin D3) 50 mcg (2,000 unit) tablet TAKE 2 TABLETS BY MOUTH EVERY DAY 10/31 completed Not Available Not Available Not Available ciprofloxac in 0.2 % ear drops in a dropperette INSTILL 4 DROP IN AFFECTED EAR EVERY 12 HOURS 08/17 completed Not Available Not Available Not Available lurasidone 60 mg tablet TAKE 1 TABLET BY MOUTH DAILY 10/31 completed Not Available Not Available Not Available Vraylar 1.5 mg capsule 10/31 completed Not Available Not Available Not Available Vraylar 3 mg capsule 10/31 completed Not Available Not Available Not Available Trelegy Ellipta 100 mcg-62.5 mcg-25 mcg powder for inhalation INHALE 1 PUFF BY MOUTH EVERY DAY 01/08 completed Not Available Not Available Not Available Trelegy Ellipta 200 mcg-62.5 mcg-25 mcg powder for inhalation INHALE 1 PUFF BY MOUTH EVERY DAY active Not Available Not Available No t Available Gemtesa 75 mg tablet TAKE 1 TABLET BY MOUTH EVERY DAY active Not Available Not Available No t Available Zoryve 0.3 % topical foam APPLY TO SCALP ONCE DAILY 08/17 completed Not Available Not Available Not Available Vitals Date Recorded Body height Body mass index (BMI) Body weight Provider Name and Address Organization Details Last Updated DateTime 08/03/2024 162.56 cm 34.3 kg/m2 04837.47 g Fabby Pascal [place] [facility] 08/03/2024 10:17:27 Date Recorded Body height Body mass index (BMI) Body weight Provider Name and Address Organization Details Last Updated DateTime 08/17/2024 162.56 cm 34.3 kg/m2 26558.47 g Fabby Pascal [place] [facility] 08/17/2024 10:15:45 Date Recorded Body height Body mass index (BMI) Body weight Provider Name and Address Organization Details Last Updated DateTime 11/03/2023 162.56 cm 36.9 kg/m2 13873.36 g Angie Sheldon [place] [facility] 11/03/2023 09:13:36 Social History None recorded. Functional Status None recorded. Mental Status None recorded. Family History Nothing Reported. Medical History Condition Response Anxiety Y Depression Y Asthma Y Gynecological HistoryNo gynecological history recorded. Obstetrics History GPAL:G 0 P 0 0 0 0 Past Encounters Encounter ID Performer Location Encounter Start Date Encounter Closed Date Diagnosis/Indication Diagnosis SNOMED-CT Code Diagnosis ICD10 Code Diagnosis IMO Codes Diagnosis Note [id number] ALEE MILLER MD [facility] [address] [address] 09/22/2023 09:44:47 09/22/2023 10:11:41 Chronic mycotic otitis externa 815075468 H60.399 The skin of the bilateral external auditory canal is showing signs of fungal dermatitis . Recommend applicatio n of clotrimazo le/betamet hasone cream to be applied by fingertip to the external auditory meatus three times a day for two weeks. Also use clotrimazo le drops. Patient may repeat this as necessary for recurrence of symptoms. Prescripti on sent to patient's pharmacy. Avoidance of Q-tips recommende d to reduce the risk of recurrence . Dermal mycosis 56611267 B36.9 Impacted c erumen of bilateral ears 0431456281 551168 H61.23 ears debrided of wax and debris [id number] TATYANA BROOKS PA-C [facility] [address] [address] 11/03/2023 09:08:23 11/03/2023 09:31:52 Candidal otitis externa 81256383 B37.84 Dermal mycosis 33582380 B36.9 Impacted c erumen of bilateral ears 3136183167 257301 H61.23 [id number] TERESITA ZENDEJAS PA-C [facility] [address] [address] 08/03/2024 10:02:55 08/03/2024 10:43:25 Otorrhea 91028412 H92.11 right Chronic my cotic otitis externa 286115787 H60.399 Dermal mycosis 06866103 B36.9 [id number] TERESITA ZENDEJAS PA-C [facility] [address] [address] 08/17/2024 09:59:26 08/17/2024 10:52:45 Chronic mycotic otitis externa 820312256 H60.399 Infective otitis externa of bilateral ears 0954463129 254758 H60.393 [id number] TERESITA ZENDEJAS PA-C [facility] [address] [address] 08/31/2024 10:59:01 08/31/2024 11:30:11 Chronic mycotic otitis externa 231067128 H60.399 Dermal mycosis 64179664 B36.9 [id number] RANJIT MURRIETA [facility] [address] [place] [address] 01/08/2025 10:26:59 01/08/2025 11:04:43 Chronic mycotic otitis externa 379357168 H60.399 Dermal mycosis 16887066 B36.9 Otorrhea 72389176 H92.11 Health Concerns Section Related Observation LastModified by Organization Detai ls LastModified Time None Recorded Concern Status LastModified by Organization Details LastModified Time None Recorded Advance Directives Directive None Recorded Payers Insurance Date Sequence Insurance Name Policy Number Policy Black Covered Member ID Black Member ID Guarantor Name 01/08/2025 1 [facility] [employer] [facility] [place] [employer] [employer] (HMO) [id number] Sunita Riggs [id number] Sunita Riggs 05/25/2024 1 [facility] PLAN (HMO) [id number] Sunita Riggs [id number] Sunita Riggs Notes Date Note Type Note Provider Name and Address Organization Details Recorded Time 11/03/2023 text/html ROS as noted in the HPI 33-year-old female presents for reevaluation of bilateral fungal otitis externa. She did not get the drops prescribed as they were not covered by her insurance. Continues to have itching and fullness of the ears. SCAR FERNANDES MD [address] [place] [address], [phone], [facility] 11/05/2023 07:30:21 08/03/2024 text/html ROS as noted in the HPI 34-year-old female with history of chronic mycotic otitis externa presents for evaluation of the ears. She reports muffled hearing, ear pain, and drainage bilaterally. The symptoms started 5 months ago, improved with topical Ciprodex, and quickly returned. No history of diabetes or immunocompromise state. She does not use Q-tips. ASHTYN CAMPOVERDE MD [address] [place] [address], [phone], [facility] 08/06/2024 16:12:51 08/17/2024 text/html ROS as noted in the [facility] 34yo female with history of chronic mycotic otitis externa presents for evaluation of the ears. She reports bilateral ear discomfort resolved with lotrisone. She started tobradex a couple days ago. Denies itchy ears, ear pain, or drainage. No hearing concerns. ASHTYN CAMPOVERDE MD [address] [facility],[address], [address], [facility] 08/20/2024 21:39:17 08/31/2024 text/html ROS as noted in the [facility] 34yo female with history of chronic mycotic otitis externa presents for evaluation of the ears. WE trialed otomax bilaterally. Patient denies ear pain manage, or hearing changes. She feels her hearing is at baseline. No new concerns today. SCAR FERNANDES MD [address] [facility],[address], [address], [facility] 09/04/2024 17:43:52 01/08/2025 text/html ROS as noted in the [facility] 34-year-old female with history of chronic mycotic otitis externa presents with concerns about a right ear infection. She started developing right ear pain and crusting on the right external ear 1 month ago that has not been improving. She denies any ear drainage, hearing changes, left ear symptoms, and ear fullness. Her last ear infection was in July, it was bilateral, and it was treated successfully with Otomax in the office. A culture from the right ear at that time grew Staphylococcus aureus susceptible to gentamicin and Sherri Parapsilosis. The patient is requesting repeat Otomax application to her right ear since she does not typically have success with ear drops. She has not used the Lotrisone cream since July. The patient denies a history of diabetes, chronic steroid use, other known immunocompromising conditions, and Q-tip use. JASMINE OBANDO MD [address] [facility],[place] [address], [place], [address], [facility] 01/09/2025 06:22:30 OBGyn Episode No OBEpisode recorded.
--- OUTSIDE RECORDS SUMMARY | 2025-01-18 19:49 | XMS_ITS | Data Portability ---
Author Organization [facility] [address] Address [address] [place] [address] Care Team Providers Care Pond Tender Name Role Phone NICHOLAS JOSEPH[facility] Primary Care Provide r Assessment No assessment recorded. Plan of Treatment Reminders Order Date Submit Date Provider Last Modified By Organization Details Last Modified Time Details Appointments None recorded. Lab None recorded. Referral None recorded. Procedures cerumen removal using irrigation (PROC) 2022 023 [email or web address] Not available 10:27:11 Surgeries None recorded. Imaging None recorded. Medication Orders None recorded. Patient TargetsNo targets recorded. Patient InstructionsNo instructions recorded. Reason for Referral None Reported. Problems Name Problem SNOMED Code Status Onset Date Resolution Date Notes Provider Name and Address Organization Details Recorded Time Bipolar disorder 11214997 Active 023 MELVIN MITCHELL null, PA - [facility] 09:29:33 Asthma 312971689 Active 023 MELVIN MITCHELL null, PA - [facility] 3 09:29:39 Anxiety 22253212 Active 023 MELVINCammie MITCHELL null, PA - [facility] 3 09:29:46 Problem Notes None recorded. Procedures Surgical History Date Name Laterality Status Provider Name and Address Organization Details Recorded Time tooth extraction completed MELVIN MITCHELL PA - [facility] 06/21/2022 09:31:41 hysterectomy completed MELVIN MITCHELL PA - [facility] 06/21/2022 09:32:02 Imaging Results None recorded. Procedure Notes None recorded. Medical Equipment None Reported. Allergies No known drug allergies Medications Name Sig Start Date Stop Date Status Note LastModified by Organization Details LastModified Time quetiapine 25 mg tablet TAKE 1 TABLET BY MOUTH DAILY AT BEDTIME active Not Available Not Available No t Available cyclobenzap rine 10 mg tablet TAKE 1 TABLET BY MOUTH THREE TIMES DAILY FOR MUSCLE SPASM 06/21 completed Not Available Not Available Not Available amoxicillin 500 mg capsule TAKE 1 CAPSULE BY MOUTH EVERY 8 HOURS UNTIL ALL TAKEN 06/21 completed Not Available Not Available Not Available ketoconazol e 2 % shampoo APPLY TOPICALLY TO THE SCALP EVERY OTHER DAY. LEAVE ON 5 MINUTES THEN WASH OFF active Not Available Not Available No t Available phenazopyri dine 200 mg tablet 06/21 completed Not Available Not Available Not Available olanzapine 5 mg tablet TAKE 1 TABLET BY MOUTH DAILY NEEDED FOR AGITATION active Not Available Not Available No t Available triamcinolo ne acetonide 0.025 % lotion APPLY TOPICALLY TO THE SCALP TWICE DAILY NEEDED FOR FLARES active Not Available Not Available No t Available lithium carbonate 150 mg capsule TAKE 1 CAPSULE BY MOUTH TWICE DAILY 06/21 completed Not Available Not Available Not Available acetaminoph en 500 mg tablet TAKE 1 TABLET BY MOUTH EVERY 4 TO 6 HOURS NEEDED active Not Available Not Available No t Available baclofen 20 mg tablet TAKE 1 TABLET BY MOUTH THREE TIMES DAILY NEEDED FOR MUSCLE SPASMS active Not Available Not Available No t Available lithium carbonate 600 mg capsule TAKE 1 CAPSULE BY MOUTH DAILY IN THE MORNING active Not Available Not Available No t Available lithium carbonate 300 mg capsule TAKE 1 CAPSULE BY MOUTH TWICE DAILY active Not Available Not Available No t Available gabapentin 300 mg capsule TAKE 2 CAPSULES BY MOUTH EVERY MORNING AND EVERY NIGHT AT BEDTIME THEN TAKE 1 CAPSULE BY MOUTH EVERY AFTERNOON 06/21 completed Not Available Not Available Not Available diazepam [address] 1 TABLET HIGH IN THE VAGINA POSSIBLE EVERY 12 HOURS FOR PELVIC MUSCLE SPASM active Not Available Not Available No t Available albuterol sulfate HFA 90 mcg/actuati on aerosol inhaler INHALE 2 PUFFS BY MOUTH EVERY 4 HOURS NEEDED FOR WHEEZING active Not Available Not Available No t Available oxycodone 5 mg tablet TAKE 1 TABLET BY MOUTH EVERY 4 HOURS NEEDED FOR PAIN 06/21 completed Not Available Not Available Not Available Flovent HFA 110 mcg/actuati on aerosol inhaler INHALE 2 PUFFS BY MOUTH TWICE DAILY active Not Available Not Available No t Available chlorhexidi ne gluconate 0.12 % mouthwash RINSE MOUTH WITH 15ML FOR 30 SECONDS EVERY MORNING AND EVERY EVENING AFTER TOOTHBRUS COLLETTE THEN SPIT DO NOT SWALLOW 06/21 completed Not Available Not Available Not Available varenicline tartrate 1 mg tablet 06/21 completed Not Available Not Available Not Available quetiapine 50 mg tablet TAKE 1 TABLET BY MOUTH DAILY 06/21 completed Not Available Not Available Not Available guanfacine ER 2 mg tablet,exte nded release 24 hr 06/21 completed Not Available Not Available Not Available guanfacine ER 1 mg tablet,exte nded release 24 hr TAKE 1 TABLET BY MOUTH DAILY FOR 7 DAYS. START THIS SCRIPT FIRST 06/21 completed Not Available Not Available Not Available guanfacine ER 3 mg tablet,exte nded release 24 hr TAKE 1 TABLET BY MOUTH DAILY. DO NOT CHEW OR BREAK TABLETS active Not Available Not Available No t Available lurasidone 40 mg tablet TAKE 1 TABLET BY MOUTH DAILY active Not Available Not Available No t Available Latuda 20 mg tablet TAKE 1 TABLET BY MOUTH DAILY 06/21 completed Not Available Not Available Not Available Vitals Date Recorded Body height Body mass index (BMI) Body weight Oxygen saturation Oxygen saturation in Arterial blood by Pulse oximetry Heart rate Respiratory rate Body temperature Systolic And Diastolic Provider Name and Address Organization Details Last Updated DateTime 3 162.56 cm 32.6 kg/m2 38565.5 5 g 98 % 98 % 68 /min 16 /min 98 [degF] 108/70 mm[Hg] MELVIN MITCHELL PA - [facility] 09:34:13 Social History Question Answer Notes LastModified by Angelantoni Details LastModified Time Tobacco Smoking Status Former Smoker MELVIN lawton PA - [facility] 06/21/2022 09:31:27 Which Illicit Or Recreational Drugs Have You Used? Marijuana Information not available 06/21/2022 Have You Recently Traveled Abroad? No [email or web address] Information not available 06/21/2022 Sex: Unknown Functional Status Question Answer Note LastModified by Angelantoni Details LastModified Time Do you use any illicit or recreational drugs? Yes Information not available 06/21/2022 Do you or have you ever used any other forms of tobacco or nicotine? No [email or web address] Information not available 06/21/2022 What is your level of alcohol consumption? Occasional [email or web address] Information not available 06/21/2022 Mental Status None recorded. Family History Relationship Description Onset Age of this Age Resolved Age Notes LastModified by Organization Details LastModified Time Unspecified Relation Hypertensive disorder [email or web address] Not available 2022 09:30:30 Unspecified Relation Diabetes mellitus [email or web address] Not available 2022 09:30:36 Medical History No medical history recorded. Gynecological HistoryNo gynecological history recorded. Obstetrics History GPAL:G 0 P 0 0 0 0 Past Encounters Encounter ID Performer Location Encounter Start Date Encounter Closed Date Diagnosis/Indication Diagnosis SNOMED-CT Code Diagnosis ICD10 Code Diagnosis IMO Codes Diagnosis Note [id number] [address] [place] [address] 03/26/2020 18:47:55 03/26/2020 20:00:16 [id number] [facility] [address] [address] 05/13/2017 11:31:38 05/13/2017 12:10:05 [id number] [address] [place] [address] 12/17/2020 08:33:27 12/17/2020 11:06:22 [id number] [address] [place] [address] 08/09/2018 11:22:35 08/09/2018 12:25:13 [id number] [address] [place] [address] 02/16/2019 08:52:01 02/16/2019 09:27:44 [id number] [address] [place] [address] 12/06/2020 08:10:22 12/06/2020 09:07:25 [id number] [address] [place] [address] 07/27/2021 17:21:10 07/27/2021 18:39:04 [id number] [address] [place] [address] 07/01/2019 09:56:31 07/01/2019 10:32:16 [id number] [address] [place] [address] 04/06/2019 14:14:59 04/06/2019 16:00:05 [id number] Romario Umana DO [address] [place] [address] 06/21/2022 08:52:19 06/21/2022 10:40:45 Impacted cerumen in right ear 7320548493 041988 H61.21 Pt tolerated BL ear lavage wellEar canals inspected and clear post procedureT Ms wnl Patient advised to follow up as needed for worsening symptoms or no improvemen t. Health Concerns Section Related Observation LastModified by Organization Detai ls LastModified Time None Recorded Concern Status LastModified by Organization Details LastModified Time None Recorded Advance Directives Directive None Recorded Payers Insurance Date Sequence Insurance Name Policy Number Policy Black Covered Member ID Black Member ID Guarantor Name 06/21/2022 1 [facility] [employer] - [employer] (MEDICAID HMO) [id number] Sunita Riggs [id number] Sunita Riggs Notes Date Note Type Note Provider Name and Address Organization Details Recorded Time 06/21/2022 text/html ROS as noted in the HPI 32 yo femalec/o R ear painShe was cleaning out ear with qtips & now having ear pain x1 hour No feverNo chillsNo coughNo difficulty breathing or respiratory distressNo CPNo congestionNo sore throatNo Abdominal painNo nauseaNo vomitingNp diarrheaNo myalgiaNo fatigueNo rashNo HANo dizzinessNo recent travelNo known sick contacts Romario Umana DO [address] [place], [address], [place] - [facility] 06/21/2022 10:38:47 OBGyn Episode No OBEpisode recorded.
[2025-01-18 19:54] LABS: MANUAL DIFF FLAG NO
[2025-01-18 20:08] LABS: Hematocrit 37.9 % (37.0-47.0); Hemoglobin 13.1 g/dl (12.0-16.0); Imm Gran Abs Auto 0.01 X10*3/uL (0.00-0.03); Imm Gran Pct Auto 0.1 % (0.0-0.4); Lymphocytes Absolute Auto 2.1 X10*3/uL (1.2-4.9); Mean Corpuscular HGB Conc 34.6 g/dl (31.0-35.0); Mean Corpuscular Hemoglobin 31.5 pg (27.0-33.0); Mean Corpuscular Volume 91.1 fL (80.0-98.0); NRBC Abs Auto 0.000 X10*3/uL (0.0-0.012); NRBC Pct Auto 0.0 /100WBC (0.0-0.2); Platelet Count 377 X10*3/uL (160-400); Red Blood Count 4.16 X10*6/uL (4.20-5.50); White Blood Count 6.9 X10*3/uL (4.8-10.8)
[2025-01-18 20:11] LABS: Alanine Aminotransferase 35 U/L (0-31); Albumin Level 4.4 g/dL (3.5-5.0); Alkaline Phosphatase 99 U/L (39-117); Anion Gap 12 (12-20); Aspartate Amino Transferase 25 U/L (5-31); Blood Urea Nitrogen 5 mg/dL (9-16); Calcium 9.1 mg/dL (8.4-10.2); Carbon Dioxide 23 mmol/L (22-29); Chloride 110 mmol/L (96-108); Creatinine Clr Calc Pharmacy 128.6; Estimated Glomerular Filt Rate > 60; Lipase 20 U/L (8-78); Magnesium 2.1 mg/dL (1.6-2.6); Potassium 3.8 mmol/L (3.3-5.1); Sodium 141 mmol/L (135-145); Total Protein 6.6 g/dL (6.5-8.0)
[2025-01-18] MEDS: iohexoL 350 MG/ML 100 ML INFUS..BTL IV (21:10)
[2025-01-18 21:51] VITALS: BP 108/54; PULSE 60; RESP 18
[2025-01-18 22:56] LABS: Appearance Urine Clear; Glucose Urine UA Negative (Negative); PH 6.5 (5.0-9.0); Specific Gravity - Urine >= 1.030 (1.005-1.025)
[2025-01-19] MEDS: oxyCODONE HCl Immed Release 5 MG TABLET PO (00:30)
[2025-01-19 01:21] VITALS: BP 104/64; PULSE 86; RESP 18; TEMP 36.6; O2SAT 97
== END 2025-01-19 01:26 | disposition home or self-care (01) ==
PROVIDERS: Physician Assistant Medical; Emergency Provider Emergency Medicine; PCP Nurse Practitioner Family
DX: R10.9 Unspecified abdominal pain (principal); F31.9 Bipolar disorder, unspecified; F90.9 Attention-deficit hyperactivity disorder, unspecified type; D64.9 Anemia, unspecified; N80.9 Endometriosis, unspecified; F12.90 Cannabis use, unspecified, uncomplicated
CPT/HCPCS: 36415; 74177; 80048; 80076; 81003; 83690; 83735; 84702; 85025; 96361; 96374; 96375; 99284; 99285; J1171; J2270; Q9967

== ENCOUNTER → 2025-01-18 20:19 | Outpatient (BNV) | payer OTHER, SELFPAY | PROVIDERS: Emergency Provider Emergency Medicine; PCP Nurse Practitioner Family; Visit Provider Radiology Diagnostic Radiology | DX: R10.33 Periumbilical pain (principal) | CPT/HCPCS: 74177 ==